=== PATIENT | female | born 1945 | race Caucasian/White ===

== ENCOUNTER 2016-06-26 12:17 | Emergency (ER) | payer MEDICARE, OTHER ==
--- NOTE | 2016-06-26 12:44 | ERPHSYRPT ---
- History of Present Illness Time Seen by Provider: 06/26/16 12:30 Source: patient Exam Limitations: clinical condition Patient Subjective Stated Complaint: pt tripped over someones foot at [employer] and fell, no loc, pt co pain to left arm and shoulder Triage Nursing Assessment: no deformity to shoulder,no swelling or redness noted , nailbeds pink,hands warm, Physician History: PATIENT WITH HISTORY OF ARTHRITIS, SLIPPED INTO DINER, FELL OVER A PERSONS FEET AND INJURYED HER RIGHT SHOULDER, ELBOW AND WRIST. HAS MODERATE PAIN DISCOMFORT UPON RANGE OF MOTION. DENIES ASSOCIATED HEAD, NECK OR BACK INJURY Occurred: just prior to arrival Reason for Fall: tripped (OVER PERSONS FEET) Injuries/Pain Location: upper extremity Loss of Consciousness: no loss of consciousness Quality: stabbing Severity of Pain-Max: moderate Associated Symptoms (Fall): denies symptoms Allergies/Adverse Reactions: azelastine HCl [From Astelin] Allergy (Mild, Verified 06/26/16 12:28) clarithromycin [From Biaxin] Allergy (Mild, Verified 06/26/16 12:28) epinephrine Allergy (Mild, Verified 06/26/16 12:28) Penicillins Allergy (Mild, Verified 06/26/16 12:28) valdecoxib [From Bextra] Allergy (Mild, Verified 06/26/16 12:28) Home Medications: Diclofenac Sodium/Misoprostol [Arthrotec 50 EC Tablet] 1 tab PO BID 10/04/11 [ History] Estrogens,Conjugated [Premarin] 1 tab PO DAILY 10/04/11 [History] Cetirizine HCl [Zyrtec] 1 tab PO DAILY 03/25/12 [History] Tramadol HCl 50 mg [Ultram 50 mg] 50 mg PO BID 02/20/14 [History] Levothyroxine Sodium [Synthroid] 50 mcg DAILY 06/26/16 [History] Hx Tetanus, Diphtheria Vaccination/Date Given: Yes Hx Influenza Vaccination/Date Given: No Hx Pneumococcal Vaccination/Date Given: Yes Immunizations Up to Date: Yes - Review of Systems Constitutional: No Fever, No Chills Eyes: No Symptoms Ears, Nose, & Throat: No Symptoms Respiratory: No Symptoms, No Cough, No Dyspnea Cardiac: No Chest Pain, No Edema, No Syncope Abdominal/Gastrointestinal: No Symptoms, No Abdominal Pain, No Nausea, No Vomiting, No Diarrhea Genitourinary Symptoms: No Dysuria Musculoskeletal: Injury, Joint Pain, Joint Swelling, No Back Pain, No Neck Pain Skin: No Rash Neurological: No Dizziness, No Focal Weakness, No Sensory Changes Psychological: No Symptoms Endocrine: No Symptoms All Other Systems: Reviewed and Negative - Past Medical History Pertinent Past Medical History: Yes Neurological History: No Pertinent History ENT History: No Pertinent History Respiratory History: No Pertinent History Endocrine Medical History: Hypoglycemia Musculoskeletal History: Arthritis GI Medical History: GERD, Polyps History: No Pertinent History Psycho-Social History: No Pertinent History Female Reproductive Disorders: No Pertinent History - Past Surgical History Past Surgical History: Yes Neuro Surgical History: No Pertinent History Cardiac: No Pertinent History Gastrointestinal: Cholecystectomy Genitourinary: No Pertinent History Musculoskeletal: No Pertinent History Female Surgical History: Hysterectomy Other Surgical History: ERCP - Social History Smoking Status: Never smoker Exposure to second hand smoke: No Drug Use: none Patient Lives Alone: No - Female History Hx Last Menstrual Period: post - Nursing Vital Signs Nursing Vital Signs: Initial Vital Signs Temperature 98.7 F Temperature Source Oral Pulse Rate 66 Respiratory Rate 16 Blood Pressure [Right Arm] 107/57 Pain Intensity 8 - Anny Coma Score Best Eye Response (Anny): (4) open spontaneously Best Verbal Response ([place]): (5) oriented Best Motor Response (Anny): (6) obeys commands [place] Total: 15 - Physical Exam General Appearance: mild distress Head Injury: no evidence of injury Eye Exam: PERRL/EOMI ENT Exam: airway nml Neck Exam: supple, normal inspection, No tenderness Respiratory/Chest Exam: normal breath sounds, No chest tenderness, No respiratory distress Cardiovascular Exam: normal heart sounds Gastrointestinal Exam: soft, normal bowel sounds Back Exam: normal inspection, normal range of motion Extremity Exam: pelvis stable, weight bearing, tenderness (RIGHT SHOUDER TENDERNESS, NO CREPITUS, OR ECCHYMOSIS, NO DEFORMITY), other (RIGTH ELBOW FULL RANGE OF MOTION, MODERATE SWELLIGN, U= IEILLLLLLLLLLLLLLLLLLLLLLLLLLLLLLLLLLLLLLLLLLLLLLLLLLLLLLLLLLLLLLLLLLLLLLLLLLLLL LLLLLLLLLLLLLLLLLLLLLLLLLLLLIIIIIIIIIIIIIIIIIIIIIIIIIIIIIIIIIIIIIIIIIIIIIIIIIIII IIIIIIIIIIIIIIIIIIIIIIIIIIIIIIIIIIIIIII IIIIIIIIIIIIIIIIIIIIIIIIIIIIIIIIIIIIIIIIIIIIIIIIIIIIIIIIIIIIIIIIIIIIIIIIIIIIIIII IIIIIIIIIIIIIIIIIIIIIIIIIIIIIIIIIIIIIIIIIIIIIIIIIIIIIIIIIIIIIIIIIIIIIIIIIIIIIIII IIIIIIIIIIIIIIIIIIIIIIIIIIIIIIIIIIIIIIII IIIIIIIIIIIIIIIIIIIIIIIIIIIIIIIIIIIIIIIIIIIIIIIIIIIIIIIIIIIIIIIIIIIIIIIIIIIIIIII IIIIIIIIIIIIIIIIIIIDFDFDFDFDFDFDFDFDFDFDFDFDFDFDFDFDFDFDFDFDFDFDFDFDFDFDFDFDFDFD FDFDFDFDFDFDFDFDFDFDFDFDFDFDFDFDFDFDFDFD FDFDFDFDFDFDFDFDFDFDFDFDFDFDFDFDFDFDFDFDFDFDFDFDFDFDFDFDFDFDFDFDFDFDFDFDFDFDFDFD FDFDFDFDFDFDFDFDFDFDFDFDFDFDFDFDFDFDFDFDFDFDFDFDFDFDFDFDFDFDFDFDFDFDFDFDFDFDFDFD FDFDFDFDFDFDFDFDFDFDFDFDFDFDFDFDFDFDFDFD FDFDFDFDFDFDFDFDFDFDFDFDFDFDFDFDFDFDFDFDFDFDFDFDFDFDFDFDFDFDFDFDFDFDFDFDFDFDFDFD FDFDFDFDFDFDFDFDFDFDFDFDFDFDFDFDFDFDFDFDFDFDFDFDFDFDFDFDFDFDFDFDFDFDFDFDFDFDFDFD FDFDFDFDFDFDFDFDFDFDFDFDFDFDFDFDFDFDFDFD FDFDFDFDFDFDFDFDFDFDFDFDFDFDFDFDFDFDFDFDFDFDFDFDFDFDFDFDFDFDFDFDFDFDFDFDFDFDFDFD FDFDFDFDFDFDFDFDFDFDFDFDFDFDFDFDFDFDFDFDFDFDFDFDFDFDFDFDFDFDFDFDFDFDFDFDFDFDFDFD FDFDFDFDFDFDFDFDFDFDFDFDFDFDFDFDFDFDFDFD FDFDFDFDFDFDFDFDFDFDFDFDFDFDFDFDFDFDFDFDFDFDFDFDFDFDFDFDFDFDFDFDFDFDFDFDFDFDFDFD FDFDFDFDFDFDFDFDFDFDFDFDFDFDFDFDFDFDFDFDFDFDFDFDFDFDFDFDFDFDFDFDFDFDFDFDFDFDFDFD FDFDFDFDFDFDFDFDFDFDFDFDFDFDFDFDFDFDFDFD FDFDFDFDFDFDFDFDFDFDFDFDFDFDFDFDFDFDFDFDFDFDFDFDFDFDFDFDFDFDFDFDFDFDFDFDFDFDFDFD FDFDFDFDFDFDFDFDFDFDFDFDFDFDFDFDFDFDFDFDFDFDFDFDFDFDFDFDFDFDFDFDFDFDFDFDFDFDFDFD FDFDFDFDFDFDFDFDFDFDFDFDFDFDFDFDFDFDFDFD FDFDFDFDFDFDFDFDFDFDFDFDFDFDFDFDFDFDFDFDFDFDFDFDFDFDFDFDFDFDFDFDFDFDFDFDFDFDFDFD FDFDFDFDFDFDFDFDFDFDFDFDFDFDFDFDFDFDFDFDFDFDFDFDFDFDFDFDFDFDFDFDFDFDFDFDFDFDFDFD FDFDFDFDFDFDFDFDFDFDFDFDFDFDFDFDFDFDFDFD FDFDFDFDFDFDFDFDFDFDFDFDFDFDFDFDFDFDFDFDFDFDFDFDFDFDFDFDFDFDFDFDFDFDFDFDFDFDFDFD FDFDFDFDFDFDFDFDFDFDFDFDFDFDFDFDFDFDFDFDFDFDFDFDFDFDFDFDFDFDFDFDFDFDFDFDFDFDFDFD FDFDFDFDFDFDFDFDFDFDFDFDFDFDFDFDFDFDFDFD FDFDFDFDFDFDFDFDFDFDFDFDFDFDFDFDFDFDFDFDFDFDFDFDFDFDFDFDFDFDFDFDFDFDFDFDFDFDFDFD FDFDFDFDFDFDFDFDFDFDFDFDFDFDF ) Peripheral Pulses: carotid (R): 2+, carotid (L): 2+, femoral (R): 2+, femoral (L ): 2+, dorsalis-pedis (R): 2+, dorsalis-pedis (L): 2+ Neurologic Exam: alert, 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 Skin Exam: normal color SpO2 Interpretation: normal SpO2: 96 Oxygen Delivery: Room Air - Radiology Exams Right Shoulder X-ray Interpretation: Discussed w/ radiologist, No Fracture, No Subluxation (NO DISLOCATION) Right Elbow X-ray Interpretation: Discussed w/ radiologist, No Fracture, No Subluxation (NO DISLOCATION) Right Wrist X-ray Interpretation: Discussed w/ radiologist, Negative, No Fracture, No Subluxation Ordered Tests: Active Orders 24 hr Category Date Time Status Sling Application STAT Care 06/26/16 13:49 Ordered ELBOW (MINIMUM 3 VIEWS) Stat Exams 06/26/16 12:36 Completed SHOULDER Stat Exams 06/26/16 12:36 Completed WRIST (MIN 3 VIEWS) Stat Exams 06/26/16 12:37 Completed - Progress Progress: pain not gone completely Progress Note: 06/26/16 12:54 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 NORCO 5/325 EVERY 4 HOURS NEEDED FOR PAIN DISCOMFORT. APPLY ICE OVER SHOULDER AND ELBOW SWELLING EVERY 4 HOURS, 30 MINUTES FOR 48 HOURS. CONSULT YOUR FAMILY PHYSICIAN FOR EVALUATION IN 1 WEEK. Prescriptions: Hydrocodone/APAP 10/325 mg [[place] 10/325 MG Tablet] 1 tab PO Q4H PRN PRN # 15 tablet PRN Reason: Pain
--- NOTE | 2016-06-26 13:24 | XRAY ---
Indication: Pain following fall. Comparison: None 3 views of the right shoulder demonstrates minimal AC degenerative arthropathy. No other bony, articular, or soft tissue abnormalities.
--- NOTE | 2016-06-26 13:26 | XRAY ---
Indication: Pain following fall. Comparison: None 3 views of the right elbow obtained. No bony, articular, or soft tissue abnormalities.
--- NOTE | 2016-06-26 13:29 | XRAY ---
Indication: Pain following fall. Comparison: None 3 views of the right wrist demonstrates mild first metacarpal multangular degenerative changes, ulnar styloid subcortical cysts, and small healed fibrous cortical defect of the distal radius. No other bony, articular, or soft tissue abnormalities.
[2016-06-26 13:57] VITALS: O2SAT 96
[2016-06-26 14:01] VITALS: BP 113/76; PULSE 67
== END 2016-06-26 14:05 | disposition home or self-care (01) ==
LOC: ED 12:17
DX: S40.011A Contusion of right shoulder, initial encounter (principal); S60.211A Contusion of right wrist, initial encounter; S50.01XA Contusion of right elbow, initial encounter; S43.401A Unspecified sprain of right shoulder joint, initial encounter; S63.501A Unspecified sprain of right wrist, initial encounter; S53.401A Unspecified sprain of right elbow, initial encounter; W01.0XXA Fall on same level from slipping, tripping and stumbling without subsequent striking against object, initial encounter
CPT/HCPCS: 73030; 73080; 73110; 99283

== ENCOUNTER 2017-01-02 21:30 | Emergency (ER) | payer MEDICARE ==
[2017-01-02] MEDS ORDERED: Sodium Chloride 0.9% 1000 ML 1,000 ML IV STA (21:54)
[2017-01-02] MEDS ORDERED: Sodium Chloride 0.9% 1000 ML 1,000 ML ONE (21:58)
[2017-01-02 22:15] LABS: BASOPHIL % 0.8 % (0.0-0.4); Eosinophil % 5.6 % (0.00-5.0); Granulocytes % 56.8 % (36.0-66.0); Lymphocytes % 29.6 % (24.0-44.0); Mean Cell Volume 92.5 fl (78-100); Mean Platelet Volume 9.8 fl (6-9.5); Monocytes % 7.2 % (0.0-12.0); Platelet Count 241 K/mm3 (150-450); Red Blood Count 4.29 M/mm3 (4.1-5.4); Red Cell Distribution Width 13.6 % (11.5-14.0); White Blood Count 8.8 K/mm3 (4.0-10.5)
--- NOTE | 2017-01-02 22:20 | ERPHSYRPT ---
- History of Present Illness Time Seen by Provider: 01/02/17 22:17 Historian: patient, family Exam Limitations: no limitations Patient Subjective Stated Complaint: erctal bleeding x 2-3 weeks Triage Nursing Assessment: alert and oriented with c/o rectal bleeding on and off for 2-3 weeks. nausea and diarrhea. abdomen soft. slight tenderness on palpation to left upper abdomen. +BS x4 quads. deneis urinary symptoms. Physician History: rectal bleeding x 2-3 weeks c/o rectal bleeding on and off for 2-3 weeks. nausea and diarrhea. Timing/Duration: week(s) Quality: cramping Abdominal Pain Onset Location: LUQ, suprapubic Pain Radiation: no radiation Severity of Pain-Max: moderate Severity of Pain-Current: moderate Modifying Factors: Improves With: nothing Associated Symptoms: loss of appetite, weakness, other (rectal bleeding) Previous symptoms: different symptoms Allergies/Adverse Reactions: azelastine HCl [From Astelin] Allergy (Mild, Verified 01/02/17 22:50) clarithromycin [From Biaxin] Allergy (Mild, Verified 01/02/17 22:50) epinephrine Allergy (Mild, Verified 01/02/17 22:50) Penicillins Allergy (Mild, Verified 01/02/17 22:50) valdecoxib [From Bextra] Allergy (Mild, Verified 01/02/17 22:50) Home Medications: Estrogens,Conjugated [Premarin] 1 tab PO DAILY 10/04/11 [History] Tramadol HCl 50 mg [Ultram 50 mg] 50 mg PO BID 02/20/14 [History] Levothyroxine Sodium [Synthroid] 50 mcg DAILY 06/26/16 [History] Diclofenac Sodium [Voltaren] 75 mg PO BID 07/24/16 [History] Levothyroxine Sodium 50 Mcg [Synthroid 50 Mcg] 50 mcg PO DAILY 07/24/16 [ History] Misoprostol [Cytotec] 200 mcg PO BID 07/24/16 [History] Hx Tetanus, Diphtheria Vaccination/Date Given: Yes Hx Influenza Vaccination/Date Given: No Hx Pneumococcal Vaccination/Date Given: Yes - Review of Systems Constitutional: No Fever, No Chills Eyes: No Symptoms Ears, Nose, & Throat: No Symptoms Respiratory: No Cough, No Dyspnea Cardiac: No Chest Pain, No Edema, No Syncope Abdominal/Gastrointestinal: Abdominal Pain, Nausea, Diarrhea, Hematochezia, Appetite Changes, No Vomiting Genitourinary Symptoms: No Dysuria Musculoskeletal: No Back Pain, No Neck Pain Skin: No Rash Neurological: No Dizziness, No Focal Weakness, No Sensory Changes Psychological: No Symptoms Endocrine: No Symptoms All Other Systems: Reviewed and Negative - Past Medical History Pertinent Past Medical History: Yes Neurological History: No Pertinent History ENT History: No Pertinent History Respiratory History: No Pertinent History Endocrine Medical History: Hypoglycemia Musculoskeletal History: Arthritis GI Medical History: GERD, Polyps History: No Pertinent History Psycho-Social History: No Pertinent History Female Reproductive Disorders: No Pertinent History - Past Surgical History Past Surgical History: Yes Neuro Surgical History: No Pertinent History Cardiac: No Pertinent History Gastrointestinal: Cholecystectomy Genitourinary: No Pertinent History Musculoskeletal: No Pertinent History Female Surgical History: Hysterectomy Other Surgical History: ERCP - Social History Smoking Status: Never smoker Exposure to second hand smoke: No Drug Use: none Patient Lives Alone: No - Nursing Vital Signs Nursing Vital Signs: Initial Vital Signs Temperature 97.1 F 01/02/17 21:43 Pulse Rate 60 01/02/17 21:43 Respiratory Rate 16 01/02/17 21:43 Blood Pressure 128/75 01/02/17 21:43 O2 Sat by Pulse Oximetry 97 01/02/17 21:43 Pain Scale Pain Intensity 5 - Physical Exam General Appearance: no apparent distress, alert Eye Exam: PERRL/EOMI, eyes nml inspection Ears, Nose, Throat Exam: normal ENT inspection, pharynx normal, moist mucous membranes Neck Exam: normal inspection, non-tender, supple, full range of motion Respiratory Exam: normal breath sounds, lungs clear, No respiratory distress Cardiovascular Exam: regular rate/rhythm, normal heart sounds Gastrointestinal/Abdomen Exam: soft, tenderness (LUQ, Hypogastric area), No mass Back Exam: normal inspection, normal range of motion, No CVA tenderness, No vertebral tenderness Extremity Exam: normal inspection, normal range of motion, pelvis stable Neurologic Exam: alert, 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, cooperative, normal mood/affect, nml cerebellar function, sensation nml, No motor deficits Skin Exam: normal color, warm, dry SpO2: 97 Oxygen Delivery: Room Air - Course Nursing assessment & vital signs reviewed: Yes - CT Exams Abdomen/Pelvis CT Interpretation: Tele-radiologist Report (mild colitis) Ordered Tests: Active Orders 24 hr Category Date Time Status ABDOMEN AND PELVIS W/0 CONTRAS [CT] Stat Exams 01/02/17 21:54 Taken AMYLASE Stat Lab 01/02/17 22:11 Completed CBC W DIFF Stat Lab 01/02/17 22:11 Completed CMP Stat Lab 01/02/17 22:11 Completed LIPASE Stat Lab 01/02/17 22:11 Completed Lactic Acid Stat Lab 01/02/17 Ordered Occult Blood,Stool Other Stat Lab 01/02/17 22:20 Completed UA W/RFX UR CULTURE Stat Lab 01/02/17 21:54 Ordered Medication Summary Generic Name Dose Route Start Last Admin Trade Name Freq PRN Reason Stop Dose Admin Sodium Chloride 1,000 mls @ 999 mls/hr 01/02/17 21:54 01/02/17 22:08 Sodium Chloride 0.9% 1000 Ml IV 01/02/17 22:54 999 mls/hr .Q1H1M STA Administration Discontinued Medications Generic Name Dose Route Start Last Admin Trade Name Freq PRN Reason Stop Dose Admin Sodium Chloride Confirm 01/02/17 21:58 Sodium Chloride 0.9% 1000 Ml Administered 01/02/17 21:59 Dose 1,000 mls @ ud .ROUTE .STK-MED ONE Lab/Rad Data: Laboratory Result Diagrams 01/02/17 22:11 01/02/17 22:11 Laboratory Results 01/02/17 01/02/17 01/02/17 Range/Units 22:20 22:11 22:11 WBC 8.8 (4.0-10.5) K/mm3 RBC 4.29 (4.1-5.4) M/mm3 Hgb 13.3 (12.0-16.0) gm/dl Hct 39.7 (35-47) % MCV 92.5 (78-100) fl MCH 31.0 (26-32) pg MCHC 33.5 (32-36) g/dl RDW 13.6 (11.5-14.0) % Plt Count 241 (150-450) K/mm3 MPV 9.8 H (6-9.5) fl Gran % 56.8 (36.0-66.0) % Lymphocytes % 29.6 (24.0-44.0) % Monocytes % 7.2 (0.0-12.0) % Eosinophils % 5.6 H (0.00-5.0) % Basophils % 0.8 (0.0-0.4) % Basophils # 0.07 (0-0.4) Sodium 139 (136-145) mEq/L Potassium 3.9 (3.5-5.1) mEq/L Chloride 104 (98-107) mEq/L Carbon Dioxide 27.1 (21-32) mEq/L Anion Gap 11.8 (5-15) MEQ/L BUN 20 (9-20) mg/dL Creatinine 0.87 (0.55-1.30) mg/dl Estimated GFR > 60 ML/MIN Glucose 99 (70-110) MG/DL Calcium 9.2 (8.5-10.1) mg/dL Total Bilirubin 0.20 (0.2-1.0) mg/dL AST 17 (15-37) U/L ALT 27 (12-78) U/L Alkaline Phosphatase 86 (46-116) U/L Serum Total Protein 6.8 (6.4-8.2) gm/dL Albumin 3.6 (3.4-5.0) g/dL Amylase 72 (25-115) U/L Lipase 210 (73-393) U/L Stool Occult Blood NEGATIVE (Negative) - Progress Progress: improved Counseled pt/family regarding: lab results, diagnosis, need for follow-up, rad results - Departure Time of Disposition: 22:53 Departure Disposition: Home Clinical Impression: Colitis Condition: Stable Critical Care Time: Yes Critical Care Time(excluding separately billable procedures): 30-74 minutes Referrals: DWIGHT MARTÍNEZ [Primary Care Provider] - Instructions: Gastrointestinal Bleeding Additional Instructions: Please follow the instructions given to you. Please take your medication as prescribed if given. If symptoms recur or get worse, come back to the emergency room if you cannot reach your primary care physician, or call your primary care physician for an appointment. Again if your symptoms get worse, come back to the emergency room. Thanks for visiting emergency room, and let us take care of you. Follow-up with your primary care physician for further workup for your colitis, including colonoscopy. Prescriptions: Metronidazole 500 mg [Flagyl 500 MG] 500 mg PO TID #21 tablet
[2017-01-02 22:35] LABS: ALBUMIN 3.6 g/dL (3.4-5.0); ALKALINE PHOSPHATASE 86 U/L (46-116); ANION GAP 11.8 MEQ/L (5-15); BLOOD UREA NITROGEN 20 mg/dL (9-20); CHLORIDE 104 mEq/L (98-107); Carbon Dioxide 27.1 mEq/L (21-32); Glucose 99 MG/DL (70-110); LIPASE 210 U/L (73-393); Potassium 3.9 mEq/L (3.5-5.1); SGOT/AST 17 U/L (15-37); SGPT/ALT 27 U/L (12-78); SODIUM 139 mEq/L (136-145); Total Protein 6.8 gm/dL (6.4-8.2)
[2017-01-02] MEDS ORDERED: ROCEPHIN 1 Gm-D5w 50 ml Bag** 1 G/50 ML IVPB IV STA (22:52)
[2017-01-02] MEDS ORDERED: ROCEPHIN 1 Gm-D5w 50 ml Bag** 1 G/50 ML IVPB IV ONE (22:55)
[2017-01-02 23:11] VITALS: BP 131/68; PULSE 78; O2SAT 98
[2017-01-02 23:13] LABS: Collection Type VOID; Glucose NEGATIVE (NEGATIVE); Leukocyte Esterase NEGATIVE (NEGATIVE)
[2017-01-02 23:14] LABS: ADD URINE CULTURE? NO (NO); Bilirubin NEGATIVE (NEGATIVE); Blood NEGATIVE Ery/ul (0-5); COMPLETE URINE MICROSCOPIC? NO
--- NOTE | 2017-01-03 08:11 | XRAY ---
Indication: Left abdominal pain and rectal bleeding. Multiple contiguous axial images obtained through the abdomen and pelvis without contrast as ordered. Comparison: February 20, 2014. Lung bases again demonstrates minimal bibasilar atelectasis/scarring and left base calcified granuloma. Heart is not enlarged. Noncontrasted stomach and bowel loops appear nonobstructed. Again minimal sigmoid diverticulosis without diverticulitis. Descending colon demonstrates very minimal pericolonic stranding, possibly colitis. Previous reported appendectomy, hysterectomy, and cholecystectomy. Again mild pneumobilia and calcified hepatic/splenic granulomas. No free fluid/air. Remaining liver, pancreas, spleen, adrenal glands, kidneys, ureters, bladder, and aorta appear unremarkable for noncontrast exam. Osseous structures intact again with lower lumbar degenerative changes and mild scoliosis. Impression: 1. Minimal descending pericolonic stranding. Rule out mild/early colitis. 2. Stable sigmoid diverticulosis, cholecystectomy with pneumobilia, and evidence for old granulomatous disease. Comment: Preliminary interpretation was made by [facility]. No discrepancy. CTDI 21.81
== END 2017-01-02 23:37 | disposition home or self-care (01) ==
LOC: ED 21:30
DX: K52.9 Noninfective gastroenteritis and colitis, unspecified (principal); R10.12 Left upper quadrant pain; R11.10 Vomiting, unspecified; R19.7 Diarrhea, unspecified; Z79.899 Other long term (current) drug therapy; K92.1 Melena
CPT/HCPCS: 36000; 36415; 74176; 80053; 81002; 82150; 82272; 83605; 83690; 85025; 96360; 96365; 99285; J0696

== ENCOUNTER 2017-04-25 14:33 | Emergency (ER) | payer MEDICARE ==
[2017-04-25] MEDS ORDERED: BENADRYL 50 MG/ML IV ONE (14:52)
[2017-04-25] MEDS ORDERED: solu-MEDROL 125 MG IV ONE (14:52)
[2017-04-25] MEDS ORDERED: Sodium Chloride 0.9% 1000 ML 1,000 ML IV STA (14:52)
[2017-04-25] MEDS ORDERED: BENADRYL 50 MG/ML ONE (14:55)
[2017-04-25] MEDS ORDERED: solu-MEDROL 125 MG ONE (14:55)
[2017-04-25] MEDS ORDERED: Sodium Chloride 0.9% 1000 ML 1,000 ML ONE (14:55)
--- NOTE | 2017-04-25 14:59 | ERPHSYRPT ---
- History of Present Illness Time Seen by Provider: 04/25/17 14:54 Source: patient Exam Limitations: no limitations Physician History: 71-year-old white female who states she is allergic to epinephrine. Arrives with complaint of a erythematous generalized rash shortness of breath symptoms since taking moxifloxacin approximately one half hour prior to arrival. Timing/Duration: today (one half hour prior to arrival) Severity: moderate Modifying Factors: Improves With: other (patient just took moxifloxacin) Associated Symptoms: shortness of breath, rash (generalized rash), No nausea, No vomiting, No abdominal pain, No heartburn, No diaphoresis, No cough, No chills, No chest pain, No fever, No headaches, No loss of appetite, No malaise, No syncope, No seizure, No weakness Allergies/Adverse Reactions: azelastine HCl [From Astelin] Allergy (Mild, Verified 04/25/17 14:48) clarithromycin [From Biaxin] Allergy (Mild, Verified 04/25/17 14:48) epinephrine Allergy (Mild, Verified 04/25/17 14:48) Penicillins Allergy (Mild, Verified 04/25/17 14:48) valdecoxib [From Bextra] Allergy (Mild, Verified 04/25/17 14:48) moxifloxacin Allergy (Verified 04/25/17 14:48) Home Medications: Estrogens,Conjugated [Premarin] 1 tab PO DAILY 10/04/11 [History] Levothyroxine Sodium [Synthroid] 50 mcg DAILY 06/26/16 [History] Diclofenac Sodium [Voltaren] 75 mg PO BID 07/24/16 [History] Hydrocodone Bit/Acetaminophen [Hydrocodon-Acetaminophen 5-325] 1 each PO TID 12/31 [History] Hx Tetanus, Diphtheria Vaccination/Date Given: Yes Hx Influenza Vaccination/Date Given: No Hx Pneumococcal Vaccination/Date Given: Yes - Review of Systems Constitutional: No Fever, No Chills Eyes: No Symptoms Ears, Nose, & Throat: No Symptoms Respiratory: Dyspnea, No Cough, No Cyanosis, No Dyspnea on Exertion ([place]), No Stridor, No Wheezing Cardiac: No Chest Pain, No Edema, No Syncope Abdominal/Gastrointestinal: No Abdominal Pain, No Nausea, No Vomiting, No Diarrhea Genitourinary Symptoms: No Dysuria Musculoskeletal: No Back Pain, No Neck Pain Skin: Rash (generalized erythematous rash) Neurological: No Dizziness, No Focal Weakness, No Sensory Changes Psychological: No Symptoms Endocrine: No Symptoms All Other Systems: Reviewed and Negative - Past Medical History Pertinent Past Medical History: Yes Neurological History: No Pertinent History ENT History: No Pertinent History Respiratory History: No Pertinent History Endocrine Medical History: Hypoglycemia Musculoskeletal History: Arthritis GI Medical History: GERD, Polyps History: No Pertinent History Psycho-Social History: No Pertinent History Female Reproductive Disorders: No Pertinent History - Past Surgical History Past Surgical History: Yes Neuro Surgical History: No Pertinent History Cardiac: No Pertinent History Gastrointestinal: Cholecystectomy Genitourinary: No Pertinent History Musculoskeletal: No Pertinent History Female Surgical History: Hysterectomy Other Surgical History: ERCP - Social History Smoking Status: Never smoker Exposure to second hand smoke: No Drug Use: none Patient Lives Alone: No - Nursing Vital Signs Nursing Vital Signs: Initial Vital Signs Temperature 98.6 F 04/25/17 14:35 Pulse Rate 69 04/25/17 14:35 Respiratory Rate 28 H 04/25/17 14:35 Blood Pressure 140/79 04/25/17 14:35 O2 Sat by Pulse Oximetry 98 04/25/17 14:35 Pain Scale Pain Intensity 0 - Physical Exam General Appearance: other (well-developed elderly-appearing white female anxious generalized erythematous rash) Eye Exam: PERRL/EOMI, eyes nml inspection Ears, Nose, Throat Exam: normal ENT inspection, TMs normal, pharynx normal, moist mucous membranes Neck Exam: normal inspection, non-tender, supple, full range of motion Respiratory Exam: normal breath sounds, lungs clear, No respiratory distress Cardiovascular Exam: regular rate/rhythm, normal heart sounds, normal peripheral pulses Gastrointestinal/Abdomen Exam: soft, normal bowel sounds, No tenderness, No mass Back Exam: normal inspection, normal range of motion, No CVA tenderness, No vertebral tenderness Extremity Exam: normal inspection, normal range of motion, pelvis stable Neurologic Exam: alert, 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, cooperative, normal mood/affect, nml cerebellar function, nml station & gait, sensation nml, No motor deficits Skin Exam: normal color, warm, dry, No rash Lymphatic Exam: No adenopathy SpO2 Interpretation: normal (98%) - Course Nursing assessment & vital signs reviewed: Yes EKG Interpreted by Me: RATE (65 bpm), Sinus Rhythm, Left [place] Deviation, Other ( EKG sinus rhythm, 65 bpm, left axis deviation, nonspecific ST and T abnormalites , no acute ST or T wave changes) Ordered Tests: Active Orders 24 hr Category Date Time Status EKG-ER Only STAT Care 04/25/17 14:40 Active IV Insertion STAT Care 04/25/17 14:40 Active Medication Summary Discontinued Medications Generic Name Dose Route Start Last Admin Trade Name Jessica PRN Reason Stop Dose Admin Diphenhydramine HCl 25 mg 04/25/17 14:52 04/25/17 15:00 Benadryl 50 Mg/Ml IV 04/25/17 14:53 25 mg STAT ONE Administration Diphenhydramine HCl Confirm 04/25/17 14:55 Benadryl 50 Mg/Ml Administered 04/25/17 14:56 Dose 50 mg .ROUTE .STK-MED ONE Sodium Chloride 1,000 mls @ 999 mls/hr 04/25/17 14:52 04/25/17 14:59 Sodium Chloride 0.9% 1000 Ml IV 04/25/17 15:52 999 mls/hr .Q1H1M STA Administration Sodium Chloride Confirm 04/25/17 14:55 Sodium Chloride 0.9% 1000 Ml Administered 04/25/17 14:56 Dose 1,000 mls @ ud .ROUTE .STK-MED ONE Methylprednisolone Sodium Succinate 125 mg 04/25/17 14:52 04/25/17 15:00 Solu-Medrol 125 Mg IV 04/25/17 14:53 125 mg STAT ONE Administration Methylprednisolone Sodium Succinate Confirm 04/25/17 14:55 Solu-Medrol 125 Mg Administered 04/25/17 14:56 Dose 125 mg .ROUTE .STK-MED ONE - Progress Progress: unchanged (social), improved Progress Note: 04/25/17 14:56 71-year-old white female that states that she has frequent allergic reactions and multiple allergies arrives with complaint of erythematous rash over her whole body shortness of breath symptoms since approximately one half hour after taking moxifloxacin prescribed by her physician. Unfortunately the patient is unable to take epinephrine. Patient does appear to be quite anxious EKG Is remarkable for sinus rhythm 65 bpm left axis deviation nonspecific ST or T wave abnormalities no acute ST or T wave changes. Patient appears to be stable Will go ahead and give patient IV normal saline Solu-Medrol 125 mg IV and Benadryl 25 mg IV. 04/25/17 16:50 Patient feeling markedly better. Patient's skin is normal breathing easy no acute distress vitals are stable. Patient was not given epinephrine she lists this as an allergy. She did have a good response to Solu-Medrol IV normal saline and IV Benadryl. Will discharge patient. Patient will be advised not to take moxifloxacin. Will place patient on Medrol Dosepak have her continue Benadryl. - Departure Time of Disposition: 16:51 Departure Disposition: Home Clinical Impression: Allergic reaction Qualifiers: Encounter type: initial encounter Qualified Code(s): T78.40XA - Allergy, unspecified, initial encounter Condition: Fair Critical Care Time: No Referrals: DWIGHT MARTÍNEZ [Primary Care Provider] - Instructions: Adverse Drug Reactions, Adult (DC) Additional Instructions: Return home. Plenty of fluids. Benadryl 50 mg orally every 6 hours as needed for one to 2 days. Medrol Dosepak as directed. Follow-up with your family doctor. Avoid moxifloxacin or fluoroquinolones. Return for acute distress or for severe symptoms. This will write the prescription
[2017-04-25 15:56] VITALS: O2SAT 98
[2017-04-25 17:07] VITALS: BP 118/53; PULSE 66
== END 2017-04-25 17:17 | disposition home or self-care (01) ==
LOC: ED 14:33
DX: L27.0 Generalized skin eruption due to drugs and medicaments taken internally (principal); T36.8X5A Adverse effect of other systemic antibiotics, initial encounter
CPT/HCPCS: 36000; 93005; 96360; 96374; 96375; 99284; J1200; J2930

== ENCOUNTER 2017-05-08 19:36 | Observation (INO) | payer MEDICARE ==
--- NOTE | 2017-05-08 20:08 | ERPHSYRPT ---
- History of Present Illness Time Seen by Provider: 05/08/17 20:03 Source: patient, family Exam Limitations: no limitations Physician History: 71 y/o female with history of TIA currently on ASA comes to the ER with complaints of difficulty speaking, seeing hazy lines and a "funny sensation" on the left side of face that occurred at 4 pm while cooking. Pt did take ASA after having the symptoms. Pt arrives 3 1/2 hours later and states that the symptoms have mostly resolved except for the funny sensation on the left side of face. Pt denies any headache, dizziness, drooping of the mouth, weakness, chest pain, shortness of breath or palpitations. Timing/Duration: today Severity: mild Character of Deficits: altered sensation, unable to speak, vision problems Deficits: no difficulties Baseline/Normal Cognition: alert 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 Current Cognition: alert 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 Baseline Gait: walks w/o assistance Associated Symptoms: confusion, vision changes Allergies/Adverse Reactions: azelastine HCl [From Astelin] Allergy (Mild, Verified 05/08/17 22:37) clarithromycin [From Biaxin] Allergy (Mild, Verified 05/08/17 22:37) epinephrine Allergy (Mild, Verified 05/08/17 22:37) Penicillins Allergy (Mild, Verified 05/08/17 22:37) valdecoxib [From Bextra] Allergy (Mild, Verified 05/08/17 22:37) moxifloxacin Allergy (Verified 05/08/17 22:37) Home Medications: Estrogens,Conjugated [Premarin] 1 tab PO DAILY 10/04/11 [History] Levothyroxine Sodium [Synthroid] 50 mcg DAILY 06/26/16 [History] Diclofenac Sodium [Voltaren] 75 mg PO BID 07/24/16 [History] Hydrocodone Bit/Acetaminophen [Hydrocodon-Acetaminophen 5-325] 1 each PO Q8HPRN PRN 04/25/17 [History] Hx Tetanus, Diphtheria Vaccination/Date Given: Yes Hx Influenza Vaccination/Date Given: No Hx Pneumococcal Vaccination/Date Given: Yes - Review of Systems Constitutional: No Fever, No Chills Eyes: Vision Changes Ears, Nose, & Throat: No Symptoms Respiratory: No Cough, No Dyspnea Cardiac: No Chest Pain, No Edema, No Syncope Abdominal/Gastrointestinal: No Abdominal Pain, No Nausea, No Vomiting, No Diarrhea Genitourinary Symptoms: No Dysuria Musculoskeletal: No Symptoms, No Back Pain, No Neck Pain Skin: No Symptoms, No Rash Neurological: Speech Changes, No Dizziness, No Focal Weakness, No Headache, No Sensory Changes Psychological: No Symptoms Endocrine: No Symptoms All Other Systems: Reviewed and Negative - Past Medical History Pertinent Past Medical History: Yes Neurological History: No Pertinent History ENT History: No Pertinent History Respiratory History: No Pertinent History Endocrine Medical History: Hypoglycemia Musculoskeletal History: Arthritis GI Medical History: GERD, Polyps History: No Pertinent History Psycho-Social History: No Pertinent History Female Reproductive Disorders: No Pertinent History - Past Surgical History Past Surgical History: Yes Neuro Surgical History: No Pertinent History Cardiac: No Pertinent History Gastrointestinal: Cholecystectomy Genitourinary: No Pertinent History Musculoskeletal: No Pertinent History Female Surgical History: Hysterectomy Other Surgical History: ERCP - Social History Smoking Status: Never smoker Exposure to second hand smoke: No Drug Use: none Patient Lives Alone: No - Nursing Vital Signs Nursing Vital Signs: Initial Vital Signs Temperature 98.0 F 05/08/17 20:00 Pulse Rate 61 05/08/17 20:00 Respiratory Rate 18 05/08/17 20:00 Blood Pressure 146/69 05/08/17 20:00 O2 Sat by Pulse Oximetry 99 05/08/17 20:00 Pain Scale Pain Intensity 0 - Anny Coma Scale Best Eye Response ([place]): (4) open spontaneously Best Verbal Response (Anny): (5) oriented Best Motor Response (Anny): (6) obeys commands Anny Total: 15 - Physical Exam General Appearance: no apparent distress, alert Eye Exam: bilateral eye: normal inspection, PERRL, EOMI Ears, Nose, Throat Exam: normal ENT inspection, moist mucous membranes Neck Exam: normal inspection, non-tender, supple Respiratory: normal breath sounds, lungs clear, airway intact, No respiratory distress Cardiovascular: regular rate/rhythm, No edema Gastrointestinal: soft, No tenderness, No distention Back Exam: normal inspection Extremity Exam: normal inspection, normal range of motion, No pedal edema 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, 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, 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 Exam: normal hearing, normal speech, PERRL, tongue midline Coordination/Gait: normal finger to nose, normal gait Motor/Sensory: no motor deficit, no sensory deficit, no pronator drift Skin Exam: normal color, warm, dry, No rash SpO2 Interpretation: normal - Course Nursing assessment & vital signs reviewed: Yes EKG Interpreted by Me: RATE, NORMAL AXIS, NORMAL INTERVALS, NORMAL QRS Ordered Tests: Active Orders 24 hr Category Date Time Status Help Desk Intern STAT Care 05/08/17 20:02 Active EKG-ER Only STAT Care 05/08/17 20:02 Active IV Insertion STAT Care 05/08/17 20:02 Active NPO (ED) STAT Care 05/08/17 20:02 Active CHEST 1 VIEW (PORTABLE) Stat Exams 05/08/17 20:[address] ANGIOGRAPHY NECK [CT] Stat Exams 05/08/17 20:26 Taken CTA HEAD W AND/OR WO CONTRAST [CT] Stat Exams 05/08/17 20:26 Taken HEAD WITHOUT CONTRAST [CT] Stat Exams 05/08/17 20:02 Taken CBC W DIFF Stat Lab 05/08/17 20:10 Completed CMP Stat Lab 05/08/17 20:10 Completed PTT Stat Lab 05/08/17 20:10 Completed TROPONIN Q3H Lab 05/08/17 20:10 Completed TROPONIN Q3H Lab 05/08/17 23:15 Ordered TROPONIN Q3H Lab 05/09/17 02:15 Ordered TROPONIN Q3H Lab 05/09/17 05:15 Ordered TROPONIN Q3H Lab 05/09/17 08:15 Ordered UA W/RFX UR CULTURE Stat Lab 05/08/17 21:45 Completed Urine Triage Profile Stat Lab 05/08/17 21:45 Completed Medication Summary Discontinued Medications Generic Name Dose Route Start Last Admin Trade Name Freq PRN Reason Stop Dose Admin Diphenhydramine HCl 25 mg 05/08/17 21:11 05/08/17 21:16 Benadryl 50 Mg/Ml IV 05/08/17 21:12 25 mg STAT ONE Administration Diphenhydramine HCl Confirm 05/08/17 21:13 Benadryl 50 Mg/Ml Administered 05/08/17 21:14 Dose 50 mg .ROUTE .STK-MED ONE Lab/Rad Data: Laboratory Result Diagrams 05/08/17 20:10 05/08/17 20:10 Laboratory Results 05/08/17 05/08/17 05/08/17 Range/Units 21:45 21:45 20:10 WBC (4.0-10.5) K/mm3 RBC (4.1-5.4) M/mm3 Hgb (12.0-16.0) gm/dl Hct (35-47) % MCV (78-100) fl MCH (26-32) pg MCHC (32-36) g/dl RDW (11.5-14.0) % Plt Count (150-450) K/mm3 MPV (6-9.5) fl Gran % (36.0-66.0) % Lymphocytes % (24.0-44.0) % Monocytes % (0.0-12.0) % Eosinophils % (0.00-5.0) % Basophils % (0.0-0.4) % Basophils # (0-0.4) APTT (25.3-37.0) SECONDS Sodium 145 (136-145) mEq/L Potassium 3.8 (3.5-5.1) mEq/L Chloride 108 H (98-107) mEq/L Carbon Dioxide 24.7 (21-32) mEq/L Anion Gap 15.8 H (5-15) MEQ/L BUN 17 (9-20) mg/dL Creatinine 0.76 (0.55-1.30) mg/dl Estimated GFR > 60 ML/MIN Glucose 94 (70-110) MG/DL Calcium 9.2 (8.5-10.1) mg/dL Total Bilirubin 0.30 (0.2-1.0) mg/dL AST 19 (15-37) U/L ALT 27 (12-78) U/L Alkaline Phosphatase 73 (46-116) U/L Troponin I (0.000-0.056) ng/ml Serum Total Protein 7.0 (6.4-8.2) gm/dL Albumin 3.5 (3.4-5.0) g/dL Ur Collection Type CCMS Urine Color LT.YELLOW (YELLOW) Urine Appearance CLEAR (CLEAR) Urine pH 7.0 (5-6) Ur Specific [place] 1.010 (1.005-1.025) Urine Protein NEGATIVE (Negative) Urine Ketones NEGATIVE (NEGATIVE) Urine Blood NEGATIVE (0-5) Buster/ul Urine Nitrite NEGATIVE (NEGATIVE) Urine Bilirubin NEGATIVE (NEGATIVE) Urine Urobilinogen NORMAL (0-1) mg/dL Ur Leukocyte Esterase NEGATIVE (NEGATIVE) Urine Culture Reflexed NO (NO) Urine Glucose NEGATIVE (NEGATIVE) mg/dL Urine Opiates Level NEG. (NEGATIVE) Ur Methadone NEG. (NEGATIVE) Urine Barbiturates NEG. (NEGATIVE) Ur Phencyclidine (PCP) NEG. (NEGATIVE) Urine Amphetamine NEG. (NEGATIVE) U Benzodiazepine Level NEG. (NEGATIVE) Urine Cocaine NEG. (NEGATIVE) Urine Marijuana (THC) NEG. (NEGATIVE) Specimen Received 05-08-170 05/08/17 05/08/17 05/08/17 Range/Units 20:10 20:10 20:10 WBC 8.3 (4.0-10.5) K/mm3 RBC 4.35 (4.1-5.4) M/mm3 Hgb 13.7 (12.0-16.0) gm/dl Hct 40.2 (35-47) % MCV 92.4 (78-100) fl MCH 31.5 (26-32) pg MCHC 34.1 (32-36) g/dl RDW 14.1 H (11.5-14.0) % Plt Count 250 (150-450) K/mm3 MPV 10.2 H (6-9.5) fl Gran % 53.4 (36.0-66.0) % Lymphocytes % 35.2 (24.0-44.0) % Monocytes % 7.2 (0.0-12.0) % Eosinophils % 3.5 (0.00-5.0) % Basophils % 0.7 (0.0-0.4) % Basophils # 0.06 (0-0.4) APTT 26.3 (25.3-37.0) SECONDS Sodium (136-145) mEq/L Potassium (3.5-5.1) mEq/L Chloride (98-107) mEq/L Carbon Dioxide (21-32) mEq/L Anion Gap (5-15) MEQ/L BUN (9-20) mg/dL Creatinine (0.55-1.30) mg/dl Estimated GFR ML/MIN Glucose (70-110) MG/DL Calcium (8.5-10.1) mg/dL Total Bilirubin (0.2-1.0) mg/dL AST (15-37) U/L ALT (12-78) U/L Alkaline Phosphatase (46-116) U/L Troponin I < 0.017 (0.000-0.056) ng/ml Serum Total Protein (6.4-8.2) gm/dL Albumin (3.4-5.0) g/dL Ur Collection Type Urine Color (YELLOW) Urine Appearance (CLEAR) Urine pH (5-6) Ur Specific [place] (1.005-1.025) Urine Protein (Negative) Urine Ketones (NEGATIVE) Urine Blood (0-5) Buster/ul Urine Nitrite (NEGATIVE) Urine Bilirubin (NEGATIVE) Urine Urobilinogen (0-1) mg/dL Ur Leukocyte Esterase (NEGATIVE) Urine Culture Reflexed (NO) Urine Glucose (NEGATIVE) mg/dL Urine Opiates Level (NEGATIVE) Ur Methadone (NEGATIVE) Urine Barbiturates (NEGATIVE) Ur Phencyclidine (PCP) (NEGATIVE) Urine Amphetamine (NEGATIVE) U Benzodiazepine Level (NEGATIVE) Urine Cocaine (NEGATIVE) Urine Marijuana (THC) (NEGATIVE) Specimen Received - Progress Progress: improved Progress Note: 05/08/17 23:03 Pt has no current neurological complaints. The CT scan head, CTA head and neck are within normal limits. The patient has already taken 2 baby ASA today. The rest of the labs are within normal limits. The patient has been admitted to Dr Martínez for TIA and further workup - Departure Time of Disposition: 23:04 Departure Disposition: In-patient Admission Clinical Impression: TIA (transient ischemic attack) Qualifiers: Transient cerebral ischemia type: unspecified Qualified Code(s): G45.9 - Transient cerebral ischemic attack, unspecified Condition: Fair Critical Care Time: Yes Critical Care Time(excluding separately billable procedures): 75-104 minutes Referrals: DWIGHT MARTÍNEZ [Primary Care Provider] -
[2017-05-08 20:14] LABS: BASOPHIL % 0.7 % (0.0-0.4); Basophil (Absolute #) 0.06 (0-0.4); Eosinophil % 3.5 % (0.00-5.0); Eosinophil (Absolute #) 0.29 (0-0.5); Granulocyte Absolute (ANC) 4.45 (1.4-6.9); Granulocytes % 53.4 % (36.0-66.0); Hematocrit 40.2 % (35-47); Hemoglobin 13.7 gm/dl (12.0-16.0); Lymphocyte (Absolute #) 2.93 (1.0-4.6); Lymphocytes % 35.2 % (24.0-44.0); Mean Cell Volume 92.4 fl (78-100); Mean Corpuscular Hemoglobin 31.5 pg (26-32); Mean Corpuscular Hgb Concent. 34.1 g/dl (32-36); Mean Platelet Volume 10.2 fl (6-9.5); Monocytes % 7.2 % (0.0-12.0); Platelet Count 250 K/mm3 (150-450); Red Blood Count 4.35 M/mm3 (4.1-5.4); Red Cell Distribution Width 14.1 % (11.5-14.0); White Blood Count 8.3 K/mm3 (4.0-10.5)
[2017-05-08 20:44] LABS: ALBUMIN 3.5 g/dL (3.4-5.0); ALKALINE PHOSPHATASE 73 U/L (46-116); ANION GAP 15.8 MEQ/L (5-15); BLOOD UREA NITROGEN 17 mg/dL (9-20); CHLORIDE 108 mEq/L (98-107); Calcium 9.2 mg/dL (8.5-10.1); Carbon Dioxide 24.7 mEq/L (21-32); Creatinine 1 0.76 mg/dl (0.55-1.30); EST GLOMERULAR FILTRATION RATE > 60 ML/MIN; Glucose 94 MG/DL (70-110); Potassium 3.8 mEq/L (3.5-5.1); SGOT/AST 19 U/L (15-37); SGPT/ALT 27 U/L (12-78); SODIUM 145 mEq/L (136-145)
[2017-05-08] MEDS ORDERED: BENADRYL 50 MG/ML IV ONE (21:11)
[2017-05-08] MEDS ORDERED: BENADRYL 50 MG/ML ONE (21:13)
[2017-05-08 22:03] LABS: Appearance CLEAR (CLEAR); Bilirubin NEGATIVE (NEGATIVE); Blood NEGATIVE Ery/ul (0-5); Glucose NEGATIVE (NEGATIVE); Ketones NEGATIVE (NEGATIVE); Leukocyte Esterase NEGATIVE (NEGATIVE); Nitrite NEGATIVE (NEGATIVE); Protein,Urine Dip NEGATIVE (Negative); Urobilinogen NORMAL mg/dL (0-1)
[2017-05-08 22:15] LABS: Amphetamine,Urine NEG. (NEGATIVE); Barbiturate,Urine NEG. (NEGATIVE); Benzodiazepine,Urine NEG. (NEGATIVE); Cocaine,Urine NEG. (NEGATIVE); Methadone,Urine NEG. (NEGATIVE); Opiate,Urine NEG. (NEGATIVE); PCP,Urine NEG. (NEGATIVE); THC,Urine NEG. (NEGATIVE)
[2017-05-08] MEDS ORDERED: TYLENOL EXTRA STRENGTH 500 MG PO STA (23:05)
[2017-05-08] MEDS ORDERED: TYLENOL EXTRA STRENGTH 500 MG ONE (23:08)
[2017-05-09 05:58] LABS: BASOPHIL % 0.6 % (0.0-0.4); Basophil (Absolute #) 0.04 (0-0.4); Eosinophil % 4.2 % (0.00-5.0); Eosinophil (Absolute #) 0.27 (0-0.5); Granulocyte Absolute (ANC) 2.98 (1.4-6.9); Granulocytes % 46.2 % (36.0-66.0); Hematocrit 37.7 % (35-47); Hemoglobin 12.7 gm/dl (12.0-16.0); Lymphocyte (Absolute #) 2.55 (1.0-4.6); Lymphocytes % 39.5 % (24.0-44.0); Mean Cell Volume 92.9 fl (78-100); Mean Corpuscular Hgb Concent. 33.7 g/dl (32-36); Monocyte (Absolute #) 0.61 (0.0-1.3); Monocytes % 9.5 % (0.0-12.0); Platelet Count 238 K/mm3 (150-450); Red Blood Count 4.06 M/mm3 (4.1-5.4); White Blood Count 6.5 K/mm3 (4.0-10.5)
[2017-05-09 06:02] LABS: ANION GAP 13.7 MEQ/L (5-15); BLOOD UREA NITROGEN 13 mg/dL (9-20); CHLORIDE 107 mEq/L (98-107); Calcium 8.7 mg/dL (8.5-10.1); Carbon Dioxide 27.3 mEq/L (21-32); Creatinine 1 0.78 mg/dl (0.55-1.30); EST GLOMERULAR FILTRATION RATE > 60 ML/MIN; Glucose 91 MG/DL (70-110); Potassium 3.5 mEq/L (3.5-5.1); SODIUM 145 mEq/L (136-145)
[2017-05-09 06:04] LABS: Mean Corpuscular Hemoglobin 31.2 pg (26-32)
--- NOTE | 2017-05-09 07:54 | XRAY ---
Indication: Frontal headache. Confusion. Multiple contiguous axial images obtained through the head without contrast. Comparison: March 25, 2012. Age-appropriate global atrophy and minimal periventricular degenerative micro-ischemia. No acute intracranial hemorrhage, abnormal extra-axial fluid collection, or mass effect. Fourth ventricle is midline without hydrocephalus. Bony calvarium intact. Visualized paranasal sinuses and mastoid air cells are clear. Impression: Nonacute senile brain. Comment: Preliminary interpretation was made by [facility]. No discrepancy. CTDI 70.98
--- NOTE | 2017-05-09 07:56 | XRAY ---
Indication: CVA. Comparison: September 01, 2014. Portable chest less inflated today with minimal left base atelectasis/scarring. Again a few incidental calcified granulomas. No focal infiltrate, consolidation, or large effusion. Heart is not enlarged. Vascularity normal. Bony thorax intact again with minimal scoliosis. Impression: Nonacute chest with chronic features.
--- NOTE | 2017-05-09 08:00 | XRAY ---
Indication: Frontal headache. Confusion. Conventional contrast enhanced CTA neck was performed using 100 cc Isovue 370 contrast. Two-dimensional sagittal and coronal reformatted images obtained. Comparison: None. Visualized aortic arch is normal in course and caliber with normal branching right brachiocephalic, left common carotid, and left subclavian arteries. No critical stenosis/obstruction. Examination of the left and right carotid arteries of the neck demonstrates widely patent common carotid, carotid bulb, internal carotid, and external carotid arteries. Vertebral arteries are bilaterally symmetric without critical stenosis, obstruction, or AV malformation. Visualized noncontrasted soft tissues including jugular veins are unremarkable. Underlying cervical spine intact with mild C5-C7 degenerative endplate spurring and disc space narrowing. CT head and CTA [place] reported separately. Impression: Negative CTA neck with contrast exam. Incidental C5-C7 degenerative disc disease. Comment: Preliminary interpretation was made by [facility]. No discrepancy. CTDI 85.14
--- NOTE | 2017-05-09 08:06 | XRAY ---
Indication: Frontal headache. Confusion. Conventional contrast enhanced CTA [place] was performed using 100 cc Isovue 370 contrast. Two-dimensional sagittal and coronal reformatted images obtained. Comparison: None. Parasellar internal carotid arteries demonstrates minimal calcifications bilaterally without critical stenosis/obstruction. Normal carotid terminus with normal branching anterior and middle cerebral arteries bilaterally. More distal anterior cerebral, middle cerebral, and right posterior communicating arteries are normal in CTA appearance. Left posterior communicating artery not seen either occluded or too small for resolution of exam. Examination of the posterior circulation demonstrates patent symmetry of the distal vertebral arteries. Basilar artery is normal in course and caliber with normal branching superior cerebellar arteries. Anterior-inferior cerebellar and posterior-inferior cerebellar arteries are not seen either occluded or too small for resolution of exam. Normal CTA appearance of the basilar tip and posterior cerebral arteries. Venous drainage unremarkable. No abnormal enhancing intra-or extra-axial mass. CT head and CTA neck reported separately. Impression: 1. Minimal bilateral parasellar internal carotid artery calcifications without critical stenosis/obstruction. 2. Left posterior communicating, anterior inferior cerebellar, and posterior inferior cerebellar arteries not seen either occluded or too small for resolution of exam. Latter is more likely as there is no evidence for ischemia/infarct. Comment: Preliminary interpretation was made by [facility]. No critical discrepancy. CTDI 85.14
[2017-05-09] MEDS ORDERED: Ecotrin 325 MG PO SCH (10:00)
[2017-05-09] MEDS ORDERED: Sodium Chloride 0.9% 10 ML FLUSH Syringe IV PRN (12:00)
[2017-05-09] MEDS ORDERED: NORCO 5/325 MG PO PRN (13:48)
[2017-05-09] MEDS ORDERED: SYNTHROID 50 MCG PO SCH (14:00)
[2017-05-09] MEDS ORDERED: Sodium Chloride 0.9% 10 ML FLUSH Syringe IV SCH (14:00)
[2017-05-09] MEDS ORDERED: ESTROGENS CONJUGATED PO SCH (15:00)
[2017-05-09 16:09] VITALS: BP 139/67; PULSE 70; O2SAT 94
[2017-05-09 17:43] LABS: Folate (Folic Acid) 13.7 (8.6-58.9)
[2017-05-09] MEDS ORDERED: VOLTAREN 50 MG PO SCH (18:30)
[2017-05-09] MEDS ORDERED: NON-FORMULARY ITEM (Diclofenac Sodium [Voltaren] 75 MG) PO SCH (22:00)
[2017-05-10] MEDS ORDERED: ESTROGENS CONJUGATED PO SCH (10:00)
--- NOTE | 2017-05-14 10:51 | DS ---
DISCHARGE DIAGNOSES: 1) TRANSIENT ISCHEMIC ATTACK. 2) GASTROESOPHAGEAL REFLUX DISEASE. 3) CHRONIC PAIN SYNDROME. 4) HYPOTHYROIDISM. HOSPITAL COURSE: Carmen Acosta is a 71 year-old woman with past medical history of hypothyroidism, gastroesophageal reflux disease, chronic pain syndrome. She presented to the emergency room yesterday. As per patient she has been having headache and seeing hazy lines off and on for the last few days. Her symptoms particularly got worse yesterday. She states she had persistent headache lasting for two to three hours, had funny sensation on left side of face and her vision was blurred. Reportedly the patient stated that she tried to work at her computer but simply could not do it. She presented to the emergency room last night after about 2 1/2 hours of onset of her symptoms by which time her symptoms had mostly resolved except for sensation on left side of face. Upon arrival in the emergency room the patient was noted to be alert, oriented x3. She had denied any symptoms except funny sensation on left side of face. Initial vitals in the emergency room were notable for blood pressure 146/69, heart rate 64, respiratory rate 18, temperature 98F. Oxygen saturation of 99%. After initial evaluation and treatment she was admitted to medical floor for further monitoring and management. Since admission she has not had further recurrence of symptoms. Also, she has not had any new symptoms. At the time of this evaluation she is alert, awake, comfortable, denies any complaints. She states she feels well and is requesting to be discharged today. PAST MEDICAL HISTORY: As noted above. Also the patient had recently reported memory issues for which she is scheduled to see neurologist on 05/11/2017. ALLERGIES: AZELASTINE, BIAXIN, EPINEPHRINE, PENICILLIN, BEXTRA, AVELOX. MEDICATIONS: Home medications were reviewed. PAST SURGICAL HISTORY: Cholecystectomy. Hysterectomy. ERCP. SOCIAL HISTORY: The patient lives at home. No history of smoking or illicit drug use. FAMILY HISTORY: Noncontributory to current admission. REVIEW OF SYSTEMS: Complains of headache. History of vision changes as noted. Denies dizziness. Denies difficulty in speech, eating, drinking. Denies weakness of extremities. Denies chest pain, increased shortness of breath or cough. Denies abdominal pain, nausea, vomiting. Denies constipation and diarrhea. Denies urinary complaints. PHYSICAL EXAMINATION: Elderly woman lying comfortably in bed, not in acute distress. VITAL SIGNS: Blood pressure 128/58, heart rate 74, respiratory rate 16, temperature 97.4F. Oxygen saturation 95% on room air. HEENT: No pallor or icterus is noted. NECK: No JVD is present. CVS: S1, S2 present. RESPIRATORY: Breath sounds are bilaterally diminished and clear to auscultation. ABDOMEN: Obese, soft, nontender. NEURO: She is alert, oriented x3. No facial asymmetry noted. Evaluation of motor strength in bilateral upper and lower extremities revealed grossly intact motor strength. EXTREMITIES: No edema on bilateral lower extremities. LABORATORY DATA AND TESTS: Labs from admission had shown unremarkable CBC. Today's CBC is unremarkable as well. Initial CMP was notable for chloride of 108 otherwise unremarkable. Today's BMP is unremarkable. Serial troponins have remained negative. UA was negative. Urine tox was negative. CT scan of head showed nonacute senile brain. Chest x-ray showed nonacute chest with chronic features. CT angiogram of neck showed negative CT of neck, incidental C5-C7 degenerative disc disease. CT-angiogram of head showed minimal bibasilar carotid artery calcification without critical stenosis/obstruction, left posterior communicating anterior-inferior cerebellar, posterior-inferior cerebellar arteries not seen either occluded or likely too small for examination. ASSESSMENT: As outlined in discharge diagnosis. PLAN: A 71 year-old woman with past medical history of hypothyroidism, gastroesophageal reflux disease was admitted with symptoms of transient ischemic attack. She improved clinically. Her symptoms had resolved. She remained hemodynamically stable. She is otherwise feeling well and wishing to go home. She was ambulated with stable oxygen saturation. She has had no recurrence of prior symptoms or any appearance of new symptoms throughout her stay. I will obtain baseline TSH, B12, folate. Also initial MRI brain was scheduled by me however the nurse said that it cannot take place until 05/11/2017. The patient states she does have prior scheduled appointment to see neurologist for initial evaluation on 05/11/2017. I advised the patient to follow up for that appointment as scheduled and will defer it to neurology to obtain additional testing regarding MRI. Also the patient will need fasting lipid profile. The patient states that she will obtain that on 05/11/2017. The patient is being discharge home in stable condition. I will start the patient on aspirin. I have advised the patient to follow up with me in ten days. She will follow up with neurology as scheduled. Compliance with diet and medications was stressed. As noted earlier she was advised to obtain fasting lipids as outpatient. I have advised to return to the Emergency Room [facility] if any new signs and symptoms or reappearance of previous signs and symptoms are noted. The patient's clinical condition, work-up results and plan of management and plan after discharge was discussed with her. She seems to be in understanding and agreement. Plan was discussed with patient's nurse.
== END 2017-05-09 17:00 | disposition home or self-care (01) ==
LOC: ED 19:36 → INTOOBSV 23:44 → MED SURG 23:44
PROVIDERS: ADMIT General Practice; ATTEND General Practice
DX: G45.9 Transient cerebral ischemic attack, unspecified (principal); K21.9 Gastro-esophageal reflux disease without esophagitis; G89.4 Chronic pain syndrome; E03.9 Hypothyroidism, unspecified; M50.323 Other cervical disc degeneration at C6-C7 level
CPT/HCPCS: 36000; 36415; 70450; 70496; 70498; 71045; 80048; 80053; 80307; 81002; 82607; 82746; 84443; 84484; 85025; 85730; 93005; 93041; 93268; 99285; G0378; J1200; A9270-GY

== ENCOUNTER 2018-09-04 01:52 | Emergency (ER) | payer MEDICARE, OTHER ==
[2018-09-04] MEDS ORDERED: PROVENTIL 2.5 MG/3 ML NEB IH ONE ×3 (02:10→06:43)
[2018-09-04] MEDS ORDERED: solu-MEDROL 125 MG IV ONE (02:10)
--- NOTE | 2018-09-04 02:19 | ERPHSYRPT ---
- History of Present Illness Time Seen by Provider: 09/04/18 02:03 Source: patient Exam Limitations: no limitations Physician History: 73-year-old white female with history of hypoglycemia, arthritis, GERD, polyps, hypercholesterolemia, coronary artery disease Patient arrives with complaint of sore throat feeling like she has congestion in her upper chest shortness of breath symptoms going on for 3 days. Patient states that she uses injectable cholesterol medication. She states that the last several times that she is used to she apparently had had a feeling as if she has some soreness in her throat. She had been seen by [facility] and been given steroids in Benadryl she apparently did not improve she saw her family doctor who placed her on antibiotics and she improved. She states that August 31 she gave herself an injection of her injectable cholesterol medication and then the next day she began to feel a sore throat felt like she was having some shortness of breath and felt like she was coughing some sputum up in her upper lungs. She has not had a fever no nausea no vomiting. She does give a complaint that she has some erythematous areas surrounding her injection sites on her left thigh which have been chronic. She denies any chest pain Past medical history includes hypoglycemia, arthritis, GERD, polyps, atherosclerotic coronary artery disease, hypercholesterolemia. Patient with multiple allergies patient does state that she's possibly allergic to epinephrine. Past surgical history includes cholecystectomy and hysterectomy. Timing/Duration: day(s) (3 days) Severity: moderate Modifying Factors: Improves With: other (patient states symptoms began after using injectable cholesterol lowering agent 4 days ago) Associated Symptoms: shortness of breath, other (sore throat, chest congestion) , No nausea, No vomiting, No abdominal pain, No heartburn, No diaphoresis, No cough, No chills, No chest pain, No fever, No headaches, No loss of appetite, No malaise, No rash, No syncope, No seizure, No weakness Allergies/Adverse Reactions: azelastine HCl [From Astelin] Allergy (Mild, Verified 09/04/18 01:57) clarithromycin [From Biaxin] Allergy (Mild, Verified 09/04/18 01:57) epinephrine Allergy (Mild, Verified 09/04/18 01:57) valdecoxib [From Bextra] Allergy (Mild, Verified 09/04/18 01:57) moxifloxacin Allergy (Verified 09/04/18 01:57) Home Medications: Estrogens,Conjugated [Premarin] 1 tab PO DAILY 10/04/11 [History] Levothyroxine Sodium [Synthroid] 50 mcg PO DAILY 06/26/16 [History] Diclofenac Sodium [Voltaren] 75 mg PO BID 07/24/16 [History] Hydrocodone Bit/Acetaminophen [Hydrocodon-Acetaminophen 5-325] 1 each PO Q8HPRN PRN 04/25/17 [History] Aspirin 1 tab PO DAILY 05/09/17 [History] Ergocalciferol (Vitamin D2) [Vitamin D] 50,000 cap PO WEEKLY 05/09/17 [History] Misoprostol 200 mcg PO BID 05/26/17 [History] Hx Tetanus, Diphtheria Vaccination/Date Given: Yes Hx Influenza Vaccination/Date Given: No Hx Pneumococcal Vaccination/Date Given: Yes - Review of Systems Constitutional: No Fever, No Chills Eyes: No Symptoms Ears, Nose, & Throat: No Symptoms, Throat Pain, No Ear Pain, No Ear Discharge, No Hearing Changes, No Tinnitus, No Nose Pain, No Nose Congestion, No Nose Discharge, No Sinus Drainage, No Epistaxis, No Mouth Pain, No Mouth Swelling, No Loose Teeth, No Throat Swelling, No Hoarse, No Painful Swallowing, No Snoring , No Stridor Respiratory: Cough, Dyspnea, Other (feels like she has chest congestion), No Cyanosis, No Dyspnea on Exertion ([place]), No Stridor, No Wheezing Cardiac: No Chest Pain, No Edema, No Syncope Abdominal/Gastrointestinal: No Abdominal Pain, No Nausea, No Vomiting, No Diarrhea Genitourinary Symptoms: No Dysuria Musculoskeletal: No Back Pain, No Neck Pain Skin: Other (patient has iindurated skin around injection sites on her left thigh.) Neurological: No Dizziness, No Focal Weakness, No Sensory Changes Psychological: No Symptoms Endocrine: No Symptoms All Other Systems: Reviewed and Negative - Past Medical History Pertinent Past Medical History: Yes Neurological History: No Pertinent History ENT History: No Pertinent History Cardiac History: No Pertinent History Respiratory History: No Pertinent History Endocrine Medical History: Hypoglycemia Musculoskeletal History: Arthritis GI Medical History: GERD, Polyps History: No Pertinent History Psycho-Social History: No Pertinent History Female Reproductive Disorders: No Pertinent History Other Medical History: Thyroid problems - Past Surgical History Past Surgical History: Yes Neuro Surgical History: No Pertinent History Cardiac: No Pertinent History Gastrointestinal: Cholecystectomy Genitourinary: No Pertinent History Musculoskeletal: No Pertinent History Female Surgical History: Hysterectomy Other Surgical History: ERCP - Social History Smoking Status: Never smoker Exposure to second hand smoke: No Drug Use: none Patient Lives Alone: No - Nursing Vital Signs Nursing Vital Signs: Initial Vital Signs Temperature 100.2 F 09/04/18 02:02 Pulse Rate 93 H 09/04/18 02:02 Respiratory Rate 18 09/04/18 02:02 Blood Pressure 175/96 09/04/18 02:02 O2 Sat by Pulse Oximetry 97 09/04/18 02:02 Pain Scale Pain Intensity 0 - Physical Exam General Appearance: no apparent distress, alert Eye Exam: PERRL/EOMI, eyes nml inspection Ears, Nose, Throat Exam: normal ENT inspection, TMs normal, pharynx normal, moist mucous membranes Neck Exam: normal inspection, non-tender, supple, full range of motion Respiratory Exam: diminished breath sounds, No chest tenderness Cardiovascular Exam: regular rate/rhythm, normal heart sounds, normal peripheral pulses, capillary refill <2 sec Gastrointestinal/Abdomen Exam: soft, normal bowel sounds, No tenderness, No mass Back Exam: normal inspection, normal range of motion, No CVA tenderness, No vertebral tenderness Extremity Exam: normal inspection, normal range of motion, pelvis stable Neurologic Exam: alert, 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, cooperative, physical geographer II-XII nml as tested, normal mood/affect, nml cerebellar function, nml station & gait, sensation nml, No motor deficits Skin Exam: other (patient wwith several 2 cm indurated circular areas on her left thigh which she states surrounds previous injection site for her cholesterol lowering agent.) SpO2 Interpretation: normal (97%) - Course Nursing assessment & vital signs reviewed: Yes EKG Interpreted by Me: RATE (74 bpm), Sinus Rhythm, Left [place] Deviation, Other ( EKG: Sinus rhythm, at 74 beats per minute, left axis deviation, no acute ST or T wave changes are noted. Compared to October 12, 2017) - Radiology Exams Chest X-ray Interpretation: Interpreted by me (chest x-ray: No acute disease process noted) - CT Exams Chest CT Interpretation: Tele-radiologist Report (CT chest with contrast: Impression: 1 Will void 3.5 mm right lower lobe nodule on image 36 series 4. For patient' s at low risk (minimal or absent history of smoking and or other known risk factors, (no routine followup is indicated. For patient at high risk (history of smoking or other known risk factors (, consider optional CT at 12 months 2. No aortic aneurysm or dissection 3. No pulmonary emboli are identified 4. No pulmonary edema or consolidation.) Ordered Tests: Active Orders 24 hr Category Date Time Status Freelance Programmer/App Developer STAT Care 09/04/18 02:11 Active EKG-ER Only STAT Care 09/04/18 02:10 Active IV Insertion STAT Care 09/04/18 02:10 Active Pulse Oximetry (ED) STAT Care 09/04/18 02:10 Active CHEST 1 VIEW (PORTABLE) Stat Exams 09/04/18 02:11 Taken CHEST WITH CONTRAST [CT] Stat Exams 09/04/18 03:44 Taken BLOOD CULTURE Stat Lab 09/04/18 03:02 Received CBC W DIFF Stat Lab 09/04/18 03:07 Completed CK-Creatinine Phosphokinase Stat Lab 09/04/18 03:07 Completed CMP Stat Lab 09/04/18 03:07 Completed D-DIMER QUANTITATION Stat Lab 09/04/18 03:07 Completed Lactic Acid Stat Lab 09/04/18 02:56 Completed NT PRO BNP Stat Lab 09/04/18 03:07 Completed TROPONIN Q3H Lab 09/04/18 03:07 Completed VENOUS BLOOD GAS Stat Lab 09/04/18 02:56 Completed Respiratory Therapy Assessment DAILY RT 09/04/18 02:47 Completed Medication Summary Discontinued Medications Generic Name Dose Route Start Last Admin Trade Name Freq PRN Reason Stop Dose Admin Albuterol Sulfate 2.5 mg 09/04/18 02:10 09/04/18 02:48 Proventil 2.5 Mg/3 Ml Neb IH 09/04/18 02:11 2.5 mg STAT ONE Administration Albuterol Sulfate Confirm 09/04/18 02:45 Proventil 2.5 Mg/3 Ml Neb Administered 09/04/18 02:46 Dose 2.5 mg IH .STK-MED ONE Methylprednisolone Sodium Succinate 125 mg 09/04/18 02:10 09/04/18 02:34 Solu-Medrol 125 Mg IV 09/04/18 02:11 125 mg STAT ONE Administration Methylprednisolone Sodium Succinate Confirm 09/04/18 02:34 Solu-Medrol 125 Mg Administered 09/04/18 02:35 Dose 125 mg .ROUTE .STK-MED ONE Methylprednisolone Sodium Succinate Confirm 09/04/18 02:49 Solu-Medrol 125 Mg Administered 09/04/18 02:50 Dose 125 mg .ROUTE .STK-MED ONE Lab/Rad Data: Laboratory Result Diagrams 09/04/18 03:07 09/04/18 03:07 Laboratory Results 09/04/18 09/04/18 09/04/18 Range/Units 03:07 03:07 03:07 WBC (4.0-10.5) K/mm3 RBC (4.1-5.4) M/mm3 Hgb (12.0-16.0) gm/dl Hct (35-47) % MCV (78-100) fl MCH (26-32) pg MCHC (32-36) g/dl RDW (11.5-14.0) % Plt Count (150-450) K/mm3 MPV (6-9.5) fl Gran % (36.0-66.0) % Eos # (Auto) (0-0.5) Absolute Lymphs (auto) (1.0-4.6) Absolute Monos (auto) (0.0-1.3) Lymphocytes % (24.0-44.0) % Monocytes % (0.0-12.0) % Eosinophils % (0.00-5.0) % Basophils % (0.0-0.4) % Absolute Granulocytes (1.4-6.9) Basophils # (0-0.4) D-Dimer 620 H* (215-500) ng/mL pO2/FiO2 Ratio % VBG pH (7.32-7.42) VBG pCO2 at Pat Temp (42-55) mm/Hg VBG pO2 at Pat Temp (25-40) mm/Hg VBG HCO3 (22-28) meq/L VBG O2 Sat (Gissel) (95-100) VBG Base Excess (-2.0-2.0) VBG Hemoglobin VBG Carboxyhemoglobin (0.0-6.9) % T HGB POC Potassium (3.5-5.1) Sodium (137-145) mmol/L Potassium (3.5-5.1) mmol/L Chloride (98-107) mmol/L Carbon Dioxide (22-30) mmol/L Anion Gap (5-15) MEQ/L BUN (7-17) mg/dL Creatinine (0.52-1.04) mg/dL Estimated GFR ML/MIN Glucose (74-106) mg/dL Lactic Acid (0.4-2.0) Calcium (8.4-10.2) mg/dL Total Bilirubin (0.2-1.3) mg/dL AST (14-36) U/L ALT (0-35) U/L Alkaline Phosphatase (38-126) U/L Creatine Kinase (30-135) U/L Troponin I < 0.012 (0.000-0.034) ng/mL NT-Pro-B Natriuret Pep (0-900) pg/mL Serum Total Protein (6.3-8.2) g/dL Albumin (3.5-5.0) g/dL Group A Strep Antibody NEGATIVE (NEGATIVE) 09/04/18 09/04/18 09/04/18 Range/Units 03:07 03:07 02:56 WBC 7.9 (4.0-10.5) K/mm3 RBC 4.74 (4.1-5.4) M/mm3 Hgb 14.8 (12.0-16.0) gm/dl Hct 44.3 (35-47) % MCV 93.5 (78-100) fl MCH 31.2 (26-32) pg MCHC 33.4 (32-36) g/dl RDW 14.2 H (11.5-14.0) % Plt Count 253 (150-450) K/mm3 MPV 10.2 H (6-9.5) fl Gran % 67.7 H (36.0-66.0) % Eos # (Auto) 0.19 (0-0.5) Absolute Lymphs (auto) 1.71 (1.0-4.6) Absolute Monos (auto) 0.62 (0.0-1.3) Lymphocytes % 21.7 L (24.0-44.0) % Monocytes % 7.9 (0.0-12.0) % Eosinophils % 2.4 (0.00-5.0) % Basophils % 0.3 (0.0-0.4) % Absolute Granulocytes 5.35 (1.4-6.9) Basophils # 0.02 (0-0.4) D-Dimer (215-500) ng/mL pO2/FiO2 Ratio 21.0 % VBG pH 7.42 (7.32-7.42) VBG pCO2 at Pat Temp 44 (42-55) mm/Hg VBG pO2 at Pat Temp 26 (25-40) mm/Hg VBG HCO3 28.5 H (22-28) meq/L VBG O2 Sat (Gissel) 55.8 L (95-100) VBG Base Excess 3.4 H (-2.0-2.0) VBG Hemoglobin 14.8 VBG Carboxyhemoglobin 1.5 (0.0-6.9) % T HGB POC Potassium 3.8 (3.5-5.1) Sodium 139 (137-145) mmol/L Potassium 3.6 (3.5-5.1) mmol/L Chloride 101 (98-107) mmol/L Carbon Dioxide 27 (22-30) mmol/L Anion Gap 14.5 (5-15) MEQ/L BUN 17 (7-17) mg/dL Creatinine 0.88 (0.52-1.04) mg/dL Estimated GFR > 60.0 ML/MIN Glucose 96 (74-106) mg/dL Lactic Acid 0.9 (0.4-2.0) Calcium 9.8 (8.4-10.2) mg/dL Total Bilirubin 0.30 (0.2-1.3) mg/dL AST 30 (14-36) U/L ALT 32 (0-35) U/L Alkaline Phosphatase 95 (38-126) U/L Creatine Kinase 60 (30-135) U/L Troponin I (0.000-0.034) ng/mL NT-Pro-B Natriuret Pep 35.2 (0-900) pg/mL Serum Total Protein 7.5 (6.3-8.2) g/dL Albumin 4.2 (3.5-5.0) g/dL Group A Strep Antibody (NEGATIVE) - Progress Progress: improved Progress Note: 09/04/18 06:43 Patient feeling better after Solu-Medrol 125 an albuterol treatment. She still has a little coughing and with talking after several hours but is breathing much better has clear lung smith. Will give patient amoxicillin 500 mg by mouth and. Repeat albuterol treatment plan the send patient home with amoxicillin 500 mg orally 3 times a day for 10 days. She has an albuterol inhaler she is use this 2 puffs every 4-6 hours as needed for shortness of breath. Will also send patient home with tapering dose of prednisone. Patient's chest x-ray no acute disease process noted Patient's CTA of the chest which was obtained secondary to elevated d-dimer impression 13.5 mm ovoid right lower lobe nodule on him his 36 series 4. Her patient's at low risk (minimal or absent history of smoking or other known risk factors), no routine followup is indicated. 4 patient at high risk (history of smoking or of other known risk factors (, consider optional CT at 12 months. 2. No aortic aneurysm or dissection. 3. No pulmonary emboli are identified 4. On pulmonary emboli or consolidation Patient's EKG sinus rhythm 74 beats per minute left axis deviation no acute ST or T wave changes are noted patient was CBC white blood cell 7.9 hemoglobin 14.8 hematocrit 42 platelets 253 d-dimer was 620 VBG pH 7.42 PCO2 44 chemistry sodium 139 potassium 3.6 chloride 101 bicarbonate 27 BUN 17 creatinine 0.88 glucose 96 lactate is 0.9 troponin less than 0.012 BNP 35.2 Patient is in improved condition and feels much better will discharge patient with scripts for amoxicillin and tapering prednisone as noted above. Patient is to use her albuterol inhaler. She is to followup with her family ./ - Departure Departure Disposition: Home Clinical Impression: Shortness of breath, COPD exacerbation, Sore throat, possible reaction to medication Condition: Fair Critical Care Time: No Referrals: DWIGHT MARTÍNEZ [Primary Care Provider] - Instructions: Chronic Obstructive Pulmonary Disease Additional Instructions: Return home. Plenty of fluids. Use your albuterol inhaler 2 puffs every 4-6 hours as needed. Tapering prednisone as directed. Amoxicillin 500 mg orally 3 times a day for 10 days. Followup with your family . Return for acute distress severe symptoms or for any problems. Prescriptions: Amoxicillin 500 mg PO TID #30 capsule
[2018-09-04] MEDS ORDERED: solu-MEDROL 125 MG ONE ×2 (02:34→02:49)
[2018-09-04 03:04] LABS: Lactic Acid 0.9 (0.4-2.0); VBG BASE EXCESS 3.4 (-2.0-2.0); VBG CARBOXYHEMOGLOBIN 1.5 % T HGB (0.0-6.9); VBG HCO3- 28.5 meq/L (22-28); VBG HEMOGLOBIN 14.8; VBG O2 SATURATION 55.8 (95-100); VBG POTASSIUM 3.8 (3.5-5.1); VBG pH 7.42 (7.32-7.42)
[2018-09-04 03:08] LABS: BASOPHIL % 0.3 % (0.0-0.4); Basophil (Absolute #) 0.02 (0-0.4); Eosinophil % 2.4 % (0.00-5.0); Eosinophil (Absolute #) 0.19 (0-0.5); Granulocyte Absolute (ANC) 5.35 (1.4-6.9); Granulocytes % 67.7 % (36.0-66.0); Hematocrit 44.3 % (35-47); Hemoglobin 14.8 gm/dl (12.0-16.0); Lymphocyte (Absolute #) 1.71 (1.0-4.6); Lymphocytes % 21.7 % (24.0-44.0); Mean Cell Volume 93.5 fl (78-100); Mean Corpuscular Hemoglobin 31.2 pg (26-32); Mean Corpuscular Hgb Concent. 33.4 g/dl (32-36); Mean Platelet Volume 10.2 fl (6-9.5); Monocytes % 7.9 % (0.0-12.0); Platelet Count 253 K/mm3 (150-450); Red Blood Count 4.74 M/mm3 (4.1-5.4); Red Cell Distribution Width 14.2 % (11.5-14.0); White Blood Count 7.9 K/mm3 (4.0-10.5)
[2018-09-04 03:36] LABS: ALBUMIN 4.2 g/dL (3.5-5.0); ALKALINE PHOSPHATASE 95 U/L (38-126); ANION GAP 14.5 MEQ/L (5-15); BLOOD UREA NITROGEN 17 mg/dL (7-17); CHLORIDE 101 mmol/L (98-107); CK-Creatinine Phosphokinase 60 U/L (30-135); Calcium 9.8 mg/dL (8.4-10.2); Carbon Dioxide 27 mmol/L (22-30); Creatinine 1 0.88 mg/dL (0.52-1.04); Glucose 96 mg/dL (74-106); NT PRO BNP 35.2 pg/mL (0-900); Potassium 3.6 mmol/L (3.5-5.1); SGOT/AST 30 U/L (14-36); SGPT/ALT 32 U/L (0-35); SODIUM 139 mmol/L (137-145); Total Protein 7.5 g/dL (6.3-8.2)
[2018-09-04] MEDS ORDERED: AMOXIL 500 MG PO ONE (06:42)
[2018-09-04] MEDS ORDERED: AMOXIL 500 MG ONE (06:43)
[2018-09-04 06:49] VITALS: BP 118/75; O2SAT 93
[2018-09-04] MEDS ORDERED: PROVENTIL Solution 2.5 MG/0.5 ML IH ONE (06:56)
[2018-09-04 07:04] VITALS: PULSE 75
--- NOTE | 2018-09-04 08:51 | XRAY ---
Indication: Short of breath. Elevated d-dimer. Multiple contiguous axial images obtained through the chest using 100 cc Isovue 370 contrast and PE protocol. Comparison: None There is good opacification of the pulmonary arteries to include the lobar and segmental branches. No filling defect/pulmonary embolus. Heart is not enlarged. Aorta is normal in course and caliber. A few mediastinal and left hilar calcified nodes. No pathologic mediastinal/hilar lymphadenopathy. Examination of the lung parenchyma demonstrates minimal right middle lobe, lingula, and left lower lobe subsegmental atelectasis/scarring. Small left base calcified granuloma. Right middle and right lower lobe 3-4 mm noncalcified nodules (image 36 series 4) probably granulomatous. No suspicious pulmonary mass, infiltrate, or effusion. Bony thorax intact with minimal degenerative changes throughout the spine. Limited upper abdomen illustrates fatty liver, pneumobilia, and hepatic/splenic calcified granulomas. Impression: 1. Negative pulmonary embolus. No acute cardiopulmonary abnormalities. 2. Right middle and right lower lobe noncalcified micronodules probably granulomatous as there is evidence for old granulomatous disease elsewhere. 3. Incidental fatty liver. Comment: Preliminary interpretation was made by [facility]. No critical discrepancy. CTDI 12.53
--- NOTE | 2018-09-04 08:51 | XRAY ---
Indication: Short of breath. Possible allergic reaction. Comparison: June 03, 2017. Portable apical chest demonstrates minimal left base fibrosis/scarring. Stable left base calcified granuloma. Remaining heart and lungs unremarkable. Bony thorax intact again with mild degenerative changes. Impression: Nonacute chest with chronic features.
== END 2018-09-04 07:16 | disposition home or self-care (01) ==
LOC: ED 01:52
DX: R06.02 Shortness of breath (principal); J44.1 Chronic obstructive pulmonary disease with (acute) exacerbation; J02.9 Acute pharyngitis, unspecified; E78.00 Pure hypercholesterolemia, unspecified; I25.10 Atherosclerotic heart disease of native coronary artery without angina pectoris; M19.90 Unspecified osteoarthritis, unspecified site; K21.9 Gastro-esophageal reflux disease without esophagitis; Z86.010 Personal history of colon polyps
CPT/HCPCS: 36000; 36415; 71045; 71260; 80053; 82550; 82805; 83605; 83880; 84484; 85025; 85379; 87040; 87651; 93005; 93041; 94640; 96374; 99284; J2930; J7609; A9270-GY

== ENCOUNTER 2018-11-30 19:36 | Emergency (ER) | payer MEDICARE, OTHER ==
[2018-11-30] MEDS ORDERED: Pepcid 20 MG PO ONE (19:46)
[2018-11-30] MEDS ORDERED: DECADRON 10MG INJ. IM ONE (19:46)
[2018-11-30] MEDS ORDERED: ZOFRAN ODT 4 MG PO ONE (19:47)
[2018-11-30] MEDS ORDERED: Pepcid 20 MG ONE (19:52)
[2018-11-30] MEDS ORDERED: ZOFRAN ODT 4 MG ONE (19:52)
[2018-11-30] MEDS ORDERED: DECADRON 10MG INJ. ONE (19:52)
--- NOTE | 2018-11-30 19:53 | ERPHSYRPT ---
- History of Present Illness Time Seen by Provider: 11/30/18 19:40 Source: patient Exam Limitations: no limitations Physician History: Horse fly bite to the left anterior lateral lower leg on 11/29/2018. Timing/Duration: yesterday Quality: burning, itchy, painful Severity: moderate Location: extremities (left lower leg) Possible Causes: insect bite Modifying Factors: Improves With: antihistamine (took one hour prior to coming into the emergency department) Associated Symptoms: swelling/mass/lumps (localized swelling to the bite site), No blisters, No change in skin texture, No difficulty breathing, No fever, No flushing, No headache, No hives, No jaundice, No malaise, No numbness, No pallor , No paresthesia, No petechiae, No rash, No sore throat, No tingling Allergies/Adverse Reactions: azelastine HCl [From Astelin] Allergy (Mild, Verified 09/04/18 01:57) clarithromycin [From Biaxin] Allergy (Mild, Verified 09/04/18 01:57) epinephrine Allergy (Mild, Verified 09/04/18 01:57) valdecoxib [From Bextra] Allergy (Mild, Verified 09/04/18 01:57) moxifloxacin Allergy (Verified 09/04/18 01:57) Home Medications: Estrogens,Conjugated [Premarin] 1 tab PO DAILY 10/04/11 [History] Levothyroxine Sodium [Synthroid] 75 mcg PO DAILY 06/26/16 [History] Hydrocodone Bit/Acetaminophen [Hydrocodon-Acetaminophen 5-325] 1 each PO Q8HPRN PRN 04/25/17 [History] Aspirin 1 tab PO DAILY 05/09/17 [History] Ergocalciferol (Vitamin D2) [Vitamin D] 50,000 cap PO WEEKLY 05/09/17 [History] Misoprostol 200 mcg PO BID 05/26/17 [History] Hx Tetanus, Diphtheria Vaccination/Date Given: Yes Hx Influenza Vaccination/Date Given: No Hx Pneumococcal Vaccination/Date Given: Yes - Past Medical History Pertinent Past Medical History: Yes Neurological History: No Pertinent History ENT History: No Pertinent History Cardiac History: No Pertinent History Respiratory History: No Pertinent History Endocrine Medical History: Hypoglycemia Musculoskeletal History: Arthritis GI Medical History: GERD, Polyps History: No Pertinent History Psycho-Social History: No Pertinent History Female Reproductive Disorders: No Pertinent History Other Medical History: Thyroid problems - Past Surgical History Past Surgical History: Yes Neuro Surgical History: No Pertinent History Cardiac: No Pertinent History Gastrointestinal: Cholecystectomy Genitourinary: No Pertinent History Musculoskeletal: No Pertinent History Female Surgical History: Hysterectomy Other Surgical History: ERCP - Social History Smoking Status: Never smoker Exposure to second hand smoke: No Drug Use: none Patient Lives Alone: No - Nursing Vital Signs Nursing Vital Signs: Initial Vital Signs Temperature 98.3 F 11/30/18 19:37 Pulse Rate 70 11/30/18 19:37 Respiratory Rate 17 11/30/18 19:37 Blood Pressure 138/76 11/30/18 19:37 O2 Sat by Pulse Oximetry 98 11/30/18 19:37 Pain Scale Pain Intensity 6 - Physical Exam General Appearance: no apparent distress, alert Eye Exam: PERRL/EOMI, eyes nml inspection Ears, Nose, Throat Exam: normal ENT inspection, pharynx normal, moist mucous membranes Neck Exam: normal inspection, non-tender, supple, full range of motion Respiratory Exam: normal breath sounds, lungs clear, No respiratory distress Cardiovascular Exam: regular rate/rhythm, normal heart sounds, normal peripheral pulses, capillary refill <2 sec Gastrointestinal/Abdomen Exam: soft, mass, No tenderness Back Exam: normal inspection, normal range of motion, No CVA tenderness, No vertebral tenderness Extremity Exam: normal inspection, normal range of motion, No contusions, No parasthesia, No ghazala's sign, No pedal edema, No swelling Neurologic Exam: alert, 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, cooperative, seismograph helper II-XII 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 as tested, normal mood/affect, sensation nml, No motor deficits Skin Exam: normal color, warm, dry, other (singel localized urticaria with mild surrounding erythema with tenderness to palpation on the left lower leg on anterior aspect), No rash, No petechiae, No jaundice, No cyanosis, No ecchymosis , No pale Lymphatic Exam: No adenopathy SpO2 Interpretation: normal O2 Delivery: Room Air Ordered Tests: Medication Summary Discontinued Medications Generic Name Dose Route Start Last Admin Trade Name Freq PRN Reason Stop Dose Admin Dexamethasone Sodium Phosphate 10 mg 11/30/18 19:46 11/30/18 19:57 Decadron 10mg Inj. IM 11/30/18 19:47 10 mg STAT ONE Administration Dexamethasone Sodium Phosphate Confirm 11/30/18 19:52 Decadron 10mg Inj. Administered 11/30/18 19:53 Dose 10 mg .ROUTE .STK-MED ONE Famotidine 40 mg 11/30/18 19:46 11/30/18 19:54 Pepcid 20 Mg PO 11/30/18 19:47 40 mg STAT ONE Administration Famotidine Confirm 11/30/18 19:52 Pepcid 20 Mg Administered 11/30/18 19:53 Dose 40 mg .ROUTE .STK-MED ONE Ondansetron HCl 4 mg 11/30/18 19:47 11/30/18 19:57 Zofran Odt 4 Mg PO 11/30/18 19:48 4 mg STAT ONE Administration Ondansetron HCl Confirm 11/30/18 19:52 Zofran Odt 4 Mg Administered 11/30/18 19:53 Dose 4 mg .ROUTE .STK-MED ONE - Progress Progress: improved Progress Note: 11/30/18 20:28 Patient feels better and is ready to go home. No rashes, no respiratory distress,no wheezing, no stridor, and hemodynamically in good condition. - Departure Departure Disposition: Home Clinical Impression: Elevated blood pressure reading without diagnosis of hypertension Insect bite of left lower leg with local reaction Qualifiers: Encounter type: initial encounter Qualified Code(s): S80.862A - Insect bite ( nonvenomous), left lower leg, initial encounter Condition: Good Critical Care Time: No Referrals: DWIGHT MARTÍNEZ [Primary Care Provider] - Follow Up with PCP/3 days Instructions: DASH Diet, Insect Bites and Stings (DC) Additional Instructions: Return immediately back to the emergency department if any worsening redness, swelling, pain, red streaking up or down the leg, heart racing, shortness of breath, new rash elsewhere on the body, uncontrollable itching, or any other concerning signs or symptoms that was not present at today's emergency room visit for immediate reevaluation in the emergency department. Prescriptions: EPINEPHrine [Epipen 0.3 MG] 0.3 mg IM DAILY PRN PRN #1 pack PRN Reason: Allergies Loratadine 10 mg [Claritin 10 mg] 10 mg PO DAILY #10 tablet Prednisone 20 mg [Deltasone 20 mg] 60 mg PO DAILY #9 tablet
[2018-11-30 20:36] VITALS: BP 131/55; PULSE 65; O2SAT 97
== END 2018-11-30 20:37 | disposition home or self-care (01) ==
LOC: ED 19:36
DX: R03.0 Elevated blood-pressure reading, without diagnosis of hypertension (principal); S80.862A Insect bite (nonvenomous), left lower leg, initial encounter
CPT/HCPCS: 96372; 99284; J1100; Q0162; A9270-GY

== ENCOUNTER 2019-05-22 20:39 | Emergency (ER) | payer MEDICARE, OTHER ==
--- NOTE | 2019-05-22 20:46 | ERPHSYRPT ---
- History of Present Illness Time Seen by Provider: 05/22/19 20:45 Source: patient, family Exam Limitations: no limitations Physician History: This is a 73-year-old female who has history of some mild COPD and presents with cough symptoms myalgias arthralgias that started yesterday. Today she had a fever as high as 101 F. She has had a sore throat. She denies chest pain. She denies abdominal pain. She has no vomiting and no diarrhea. She has no known exposure to anyone with similar symptoms. Timing/Duration: yesterday Cough Quality/Degree: mild, dry cough Possible Cause: occasional episodes Modifying Factors: Improves With: albuterol nebulizer (Was helpful), coughing Associated Symptoms: fever, muscle aches, sore throat, No earache, No shortness of breath, No wheezing Allergies/Adverse Reactions: azelastine HCl [From Astelin] Allergy (Mild, Verified 05/22/19 20:59) clarithromycin [From Biaxin] Allergy (Mild, Verified 05/22/19 20:59) epinephrine Allergy (Mild, Verified 05/22/19 20:59) valdecoxib [From Bextra] Allergy (Mild, Verified 05/22/19 20:59) moxifloxacin Allergy (Verified 05/22/19 20:59) Home Medications: Estrogens,Conjugated [Premarin] 1 tab PO DAILY 10/04/11 [History] Levothyroxine Sodium [Synthroid] 75 mcg PO DAILY 06/26/16 [History] Aspirin 1 tab PO DAILY 05/09/17 [History] Ergocalciferol (Vitamin D2) [Vitamin D] 50,000 cap PO WEEKLY 05/09/17 [History] Clopidogrel Bisulfate 75 mg [PLAVIX 75 MG Tablet] 75 mg PO DAILY 05/22/19 [History] Gabapentin 100 mg PO BID 05/22/19 [History] Hydrocodone/Acetaminophen [Hydrocodone-Acetamin 5-325 mg] 1 each PO BID PRN 11/02 [History] Pantoprazole 20 mg [Protonix 20MG Tablet] 20 mg PO DAILY 05/22/19 [History ] Hx Tetanus, Diphtheria Vaccination/Date Given: Yes Hx Influenza Vaccination/Date Given: No Hx Pneumococcal Vaccination/Date Given: Yes - Review of Systems Constitutional: Fever Eyes: No Symptoms Ears, Nose, & Throat: Throat Pain (Mild sore throat) Respiratory: Cough Cardiac: No Symptoms Abdominal/Gastrointestinal: No Symptoms Genitourinary Symptoms: No Symptoms Musculoskeletal: No Symptoms Skin: No Symptoms Neurological: No Symptoms Psychological: No Symptoms Endocrine: No Symptoms Hematologic/Lymphatic: No Symptoms Immunological/Allergic: No Symptoms All Other Systems: Reviewed and Negative - Past Medical History Pertinent Past Medical History: Yes Neurological History: No Pertinent History ENT History: No Pertinent History Cardiac History: No Pertinent History Respiratory History: No Pertinent History Endocrine Medical History: Hypoglycemia Musculoskeletal History: Arthritis GI Medical History: GERD, Polyps History: No Pertinent History Psycho-Social History: No Pertinent History Female Reproductive Disorders: No Pertinent History Other Medical History: Thyroid problems - Past Surgical History Past Surgical History: Yes Neuro Surgical History: No Pertinent History Cardiac: No Pertinent History Respiratory: No Pertinent History Gastrointestinal: Cholecystectomy Genitourinary: No Pertinent History Musculoskeletal: No Pertinent History Female Surgical History: Hysterectomy Other Surgical History: ERCP - Social History Smoking Status: Never smoker Exposure to second hand smoke: No Drug Use: none Patient Lives Alone: No - Nursing Vital Signs Nursing Vital Signs: Initial Vital Signs Temperature 100.9 F 05/22/19 20:48 Pulse Rate 99 H 05/22/19 20:48 Respiratory Rate 18 05/22/19 20:48 Blood Pressure 149/101 05/22/19 20:48 O2 Sat by Pulse Oximetry 96 05/22/19 20:48 Pain Scale Pain Intensity 6 - Physical Exam General Appearance: mild distress, alert, anxiety Eye Exam: PERRL/EOMI, eyes nml inspection Ears, Nose, Throat Exam: normal ENT inspection, moist mucous membranes Neck Exam: normal inspection, non-tender, supple, full range of motion Respiratory Exam: normal breath sounds, lungs clear, airway intact, No chest tenderness, No respiratory distress Cardiovascular Exam: regular rate/rhythm, normal heart sounds, normal peripheral pulses Gastrointestinal/Abdomen Exam: soft, normal bowel sounds, No tenderness Pelvic Exam: not done Rectal Exam: not done Back Exam: normal inspection, normal range of motion, No CVA tenderness, No vertebral tenderness Extremity Exam: normal inspection, normal range of motion, pelvis stable Neurologic Exam: alert, 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, cooperative, sustainable design consultant II-XII nml as tested Skin Exam: normal color, warm, dry Lymphatic Exam: No adenopathy SpO2 Interpretation: normal O2 Delivery: Room Air Ordered Tests: Active Orders 24 hr Category Date Time Status CHEST 1 VIEW (PORTABLE) Stat Exams 05/22/19 20:58 Taken Peak Expiratory Flow Rate ONCE RT 05/22/19 21:12 Active Respiratory Therapy Assessment DAILY RT 05/22/19 21:12 Active Medication Summary Discontinued Medications Generic Name Dose Route Start Last Admin Trade Name Jessica PRN Reason Stop Dose Admin Hydrocodone Bitart/Acetaminophen 10 ml 05/22/19 21:07 05/22/19 21:16 Hydrocodone-Acetamin 2.5-108/5 Ml Solution PO 05/22/19 21:08 10 ml STAT STA Administration Hydrocodone Bitart/Acetaminophen Confirm 05/22/19 21:15 Hydrocodone-Acetamin 2.5-108/5 Ml Solution Administered 05/22/19 21:16 Dose 10 ml .ROUTE .STK-MED ONE Albuterol/Ipratropium 3 ml 05/22/19 20:56 05/22/19 21:07 Duoneb 0.5-3 Mg/3 Ml Neb IH 05/22/19 20:57 3 ml STAT ONE Administration Albuterol/Ipratropium Confirm 05/22/19 21:05 Duoneb 0.5-3 Mg/3 Ml Neb Administered 05/22/19 21:06 Dose 3 ml IH .STK-MED ONE Methylprednisolone Sodium Succinate 125 mg 05/22/19 20:56 05/22/19 21:05 Solu-Medrol 125 Mg IM 05/22/19 20:57 125 mg STAT ONE Administration Methylprednisolone Sodium Succinate Confirm 05/22/19 21:02 Solu-Medrol 125 Mg Administered 05/22/19 21:03 Dose 125 mg .ROUTE .STK-MED ONE Lab/Rad Data: Laboratory Results 05/22/19 Range/Units 21:12 Influenza Type A Ag NEGATIVE (NEGATIVE) Influenza Type B Ag NEGATIVE (NEGATIVE) RSV (PCR) NEGATIVE (Negative) Group A Strep Antibody NOT DETECTED (NEGATIVE) - Progress Progress: improved, re-examined Air Movement: good Progress Note: 05/22/19 21:41 Chest x-ray reveals no acute pulmonary process. 05/22/19 21:58 Patient states she is feeling so much better. Blood Culture(s) Obtained: No Antibiotics given: Yes Counseled pt/family regarding: lab results, diagnosis, need for follow-up, rad results - Departure Departure Disposition: Home Clinical Impression: Bronchitis, Fever Condition: Stable Critical Care Time: No Referrals: DWIGHT MARTÍNEZ [Primary Care Provider] - Additional Instructions: Drink plenty of fluids. Follow-up with your primary care physician and pain specialist tomorrow for further management and additional prescriptions. Prescriptions: Cefdinir 300 mg PO BID 7 Days #14 capsule Prednisone 10 mg [Deltasone 10 mg] 10 mg PO TID #12 tablet
[2019-05-22] MEDS ORDERED: DUONEB 0.5-3 MG/3 ml Neb IH ONE ×2 (20:56→21:05)
[2019-05-22] MEDS ORDERED: solu-MEDROL 125 MG IM ONE (20:56)
[2019-05-22] MEDS ORDERED: solu-MEDROL 125 MG ONE (21:02)
[2019-05-22] MEDS ORDERED: HYDROCODONE-ACETAMIN 2.5-108/5 ML SOLUTION PO STA (21:07)
[2019-05-22] MEDS ORDERED: HYDROCODONE-ACETAMIN 2.5-108/5 ML SOLUTION ONE (21:15)
[2019-05-22 21:41] LABS: Group A Strep NOT DETECTED (NEGATIVE)
[2019-05-22 21:46] LABS: INFLUENZA A NEGATIVE (NEGATIVE); INFLUENZA B NEGATIVE (NEGATIVE); RESPIRATORY SYNCTIAL VIRUS NEGATIVE (Negative)
[2019-05-22] MEDS ORDERED: Rocephin 1000 MG INJ IM ONE (22:01)
[2019-05-22] MEDS ORDERED: XYLOCAINE 1% HCL 20 ML MDV IJ ONE (22:05)
[2019-05-22] MEDS ORDERED: Rocephin 1000 MG INJ ONE (22:05)
[2019-05-22 22:47] VITALS: BP 116/64; PULSE 82; O2SAT 94
--- NOTE | 2019-05-23 08:56 | XRAY ---
Indication: Fever and cough. Comparison: September 04, 2018. Portable chest demonstrates normal heart and lungs with stable left base calcified granulomas. Bony thorax intact again with mild degenerative changes and scoliosis. No new/acute findings.
== END 2019-05-22 22:40 | disposition home or self-care (01) ==
LOC: ED 20:39
DX: J40 Bronchitis, not specified as acute or chronic (principal); R50.9 Fever, unspecified; J44.9 Chronic obstructive pulmonary disease, unspecified; Z79.899 Other long term (current) drug therapy; Z79.891 Long term (current) use of opiate analgesic
CPT/HCPCS: 71045; 87631; 87651; 94150; 94640; 96372; 99284; J0696; J2930; A9270-GY

== ENCOUNTER 2019-06-10 10:08 | Emergency (ER) | payer MEDICARE, OTHER ==
[2019-06-10 10:35] VITALS: BP 151/76
--- NOTE | 2019-06-10 11:01 | ERPHSYRPT ---
- History of Present Illness Time Seen by Provider: 06/10/19 10:45 Historian: patient Patient Subjective Stated Complaint: "I wanted to go to my PCP today but the office was closed. I have been constipated on and off for a while and I have pain in my left upper abdomen that goes into my left ribs and into my back. I had a BM yesterday and it was very small I can't seem to get everything out. I think I may have a hernia too. I have been taking laxitives at home and I have tried other things to help with my constipation. I'm on norco and I know that makes me constipated so I have reduced my dose of that because of my constipation." Triage Nursing Assessment: Pt is alert and 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. Able to ambulate and communicate normally. Arrives to ER to be evaulated for constipation and abd pains. Abd feels soft but appears slighly distended. States feels "bloated". Pt denies vomiting, states did have nausea yesterday. Lungs clear and equal throughout. Resp are unlabored at this time. Skin pink, warm, and dry. Timing/Duration: yesterday, intermittent Activities at Onset: rest Quality: aching Allergies/Adverse Reactions: azelastine HCl [From Astelin] Allergy (Mild, Verified 06/10/19 10:36) clarithromycin [From Biaxin] Allergy (Mild, Verified 06/10/19 10:36) epinephrine Allergy (Mild, Verified 06/10/19 10:36) from dentist office, mixed with lidocaine when numbing mouth caused mild reaction. valdecoxib [From Bextra] Allergy (Mild, Verified 06/10/19 10:36) moxifloxacin Allergy (Verified 06/10/19 10:36) Home Medications: Estrogens,Conjugated [Premarin] 1 tab PO DAILY 10/04/11 [History] Levothyroxine Sodium [Synthroid] 75 mcg PO DAILY 06/26/16 [History] Aspirin 1 tab PO DAILY 05/09/17 [History] Ergocalciferol (Vitamin D2) [Vitamin D] 50,000 cap PO WEEKLY 05/09/17 [History] Clopidogrel Bisulfate 75 mg [PLAVIX 75 MG Tablet] 75 mg PO DAILY 05/22/19 [History] Hydrocodone/Acetaminophen [Hydrocodone-Acetamin 5-325 mg] 1 each PO BID PRN 11/02 [History] Pantoprazole 20 mg [Protonix 20MG Tablet] 20 mg PO DAILY 05/22/19 [History ] Hx Tetanus, Diphtheria Vaccination/Date Given: Yes Hx Influenza Vaccination/Date Given: No Hx Pneumococcal Vaccination/Date Given: Yes Immunizations Up to Date: No (needs new shingles vaccine) Travel Risk - International Travel Have you traveled outside of the country in past 3 weeks: No Have you or anyone close to you been diagnosed with or: No Do your reside in a community with a known COVID-19 case?: Yes If Yes where:: [facility] - Coronavirus Screening Has patient experienced Coronavirus symptoms: No - Past Medical History Pertinent Past Medical History: Yes Neurological History: No Pertinent History ENT History: No Pertinent History Cardiac History: No Pertinent History Respiratory History: No Pertinent History Endocrine Medical History: Hypoglycemia Musculoskeletal History: Arthritis, Degenerative Disk Disease GI Medical History: GERD, Polyps History: No Pertinent History Psycho-Social History: No Pertinent History Female Reproductive Disorders: No Pertinent History Other Medical History: Thyroid problems, heart blockage - Past Surgical History Past Surgical History: Yes Neuro Surgical History: No Pertinent History Cardiac: No Pertinent History Respiratory: No Pertinent History Gastrointestinal: Cholecystectomy Genitourinary: No Pertinent History Musculoskeletal: No Pertinent History Female Surgical History: Hysterectomy Other Surgical History: ERCP - Social History Smoking Status: Never smoker Exposure to second hand smoke: No Drug Use: none Patient Lives Alone: No - Female History Hx Now: No - Nursing Vital Signs Nursing Vital Signs: Initial Vital Signs Temperature 98.0 F 06/10/19 10:23 Pulse Rate 69 06/10/19 10:23 Respiratory Rate 18 06/10/19 10:23 Blood Pressure 151/76 06/10/19 10:23 O2 Sat by Pulse Oximetry 98 06/10/19 10:23 Pain Scale Pain Intensity 5 - Physical Exam SpO2: 98 - Course Nursing assessment & vital signs reviewed: Yes Ordered Tests: Active Orders 24 hr Category Date Time Status ABDOMEN 2 VIEW Stat Exams 06/10/19 11:06 Completed - Progress Progress: pain not gone completely, re-examined Counseled pt/family regarding: diagnosis, need for follow-up, rad results - Departure Departure Disposition: Home Clinical Impression: Constipation Qualifiers: Constipation type: unspecified constipation type Qualified Code(s): K59.00 - Constipation, unspecified Condition: Stable Critical Care Time: No Referrals: DWIGHT MARTÍNEZ [Primary Care Provider] - Follow Up with PCP/3 days Instructions: Constipation, Adult (DC) Additional Instructions: Take daily MiraLAX and Colace unless you develop diarrhea. Follow-up with primary care/gastroenterology for reevaluation. Return to ER for any worsening. Iincreased fiber rich diet/fiber supplements.
[2019-06-10 11:17] VITALS: PULSE 60
--- NOTE | 2019-06-10 11:22 | XRAY ---
Indication: Left upper abdomen pain/pressure. Comparison: None 2 views of the abdomen demonstrates nonspecific nonobstructed bowel gas pattern with mild scattered colonic fecal debris greatest in the right hemicolon. Calcified hepatic/splenic granulomas and cholecystectomy clips. Solid organs unremarkable. Osseous structures intact with lower lumbar degenerative spondylosis and mild levorotoscoliosis centered at L1-L2. Lung bases are clear with incidental left base calcified granuloma. Impression: Nonacute nonobstructed abdomen.
[2019-06-10 12:08] VITALS: O2SAT 98
== END 2019-06-10 12:14 | disposition home or self-care (01) ==
LOC: ED 10:08
DX: K59.00 Constipation, unspecified (principal); Z79.899 Other long term (current) drug therapy
CPT/HCPCS: 74021; 99283

== ENCOUNTER 2019-08-05 11:45 | Observation (INO) | payer MEDICARE, OTHER ==
--- NOTE | 2019-08-05 12:04 | ERPHSYRPT ---
- History of Present Illness Time Seen by Provider: 08/05/19 12:01 Source: patient Exam Limitations: no limitations Patient Subjective Stated Complaint: pt to ER with complaints of dizziness/ chest pain L side. pt had some SOB last week. Had telephone apt with dr. kuo office thursday. pt states she went in to see dr wright and was told to come in to the ER. Dizziness started yesterday. Triage Nursing Assessment: pt A&Ox4. pt ambulatory. pt skin pwd. Physician History: Patient is here with dizziness, shortness of breath, left-sided chest pain. Patient states that her dizziness started acutely yesterday. There was a gradual onset. No falls no trauma. She does have a remote history of vertigo and a TIA. Patient states that she has tried taking meclizine. She has not felt any improvement. Patient did complain of some shortness of breath that started last week. Has continued all this week. Patient states that she was seen by her PCP just prior to arrival, Dr. Wright she was sent here for cardiac evaluation and further work-up. Location: Generalized Quality: Left-sided chest pain, dizziness Radiation: None Severity: Moderate Duration: Yesterday Timing: Gradual Modifying factors/associated signs and symptoms: She has tried meclizine and other home medications. Allergies/Adverse Reactions: azelastine HCl [From Astelin] Allergy (Mild, Verified 08/05/19 11:55) clarithromycin [From Biaxin] Allergy (Mild, Verified 08/05/19 11:55) epinephrine Allergy (Mild, Verified 08/05/19 11:55) from dentist office, mixed with lidocaine when numbing mouth caused mild reaction. valdecoxib [From Bextra] Allergy (Mild, Verified 08/05/19 11:55) moxifloxacin Allergy (Verified 08/05/19 11:55) Home Medications: Estrogens,Conjugated [Premarin] 1 tab PO DAILY 10/04/11 [History] Levothyroxine Sodium [Synthroid] 75 mcg PO DAILY 06/26/16 [History] Aspirin 1 tab PO DAILY 05/09/17 [History] Ergocalciferol (Vitamin D2) [Vitamin D] 50,000 cap PO WEEKLY 05/09/17 [History] Clopidogrel Bisulfate 75 mg [PLAVIX 75 MG Tablet] 75 mg PO DAILY 05/22/19 [History] Hydrocodone/Acetaminophen [Hydrocodone-Acetamin 5-325 mg] 1 each PO BID PRN 11/02 [History] Pantoprazole 20 mg [Protonix 20MG Tablet] 20 mg PO DAILY 05/22/19 [History ] Hx Tetanus, Diphtheria Vaccination/Date Given: Yes Hx Influenza Vaccination/Date Given: No Hx Pneumococcal Vaccination/Date Given: Yes Immunizations Up to Date: Yes Travel Risk - International Travel Have you traveled outside of the country in past 3 weeks: No Have you or anyone close to you been diagnosed with or: No Do your reside in a community with a known COVID-19 case?: Yes If Yes where:: [place] - Coronavirus Screening Has patient experienced Coronavirus symptoms: No - Review of Systems Constitutional: No Fever, No Chills Eyes: No Symptoms Ears, Nose, & Throat: No Symptoms Respiratory: No Cough, No Dyspnea Cardiac: Chest Pain, No Edema, No Syncope Abdominal/Gastrointestinal: No Abdominal Pain, No Nausea, No Vomiting, No Diarrhea Genitourinary Symptoms: No Dysuria Musculoskeletal: No Back Pain, No Neck Pain Skin: No Rash Neurological: Dizziness, No Focal Weakness, No Sensory Changes Psychological: No Symptoms Endocrine: No Symptoms All Other Systems: Reviewed and Negative - Past Medical History Pertinent Past Medical History: No Neurological History: No Pertinent History ENT History: No Pertinent History Cardiac History: No Pertinent History, Myocardial Infarction ([place]) Respiratory History: No Pertinent History Endocrine Medical History: Hypoglycemia Musculoskeletal History: Arthritis, Degenerative Disk Disease GI Medical History: GERD, Polyps History: No Pertinent History Psycho-Social History: No Pertinent History Female Reproductive Disorders: No Pertinent History Other Medical History: Thyroid problems, heart blockage - Past Surgical History Past Surgical History: Yes Neuro Surgical History: No Pertinent History Cardiac: No Pertinent History Respiratory: No Pertinent History Gastrointestinal: Cholecystectomy Genitourinary: No Pertinent History Musculoskeletal: No Pertinent History Female Surgical History: Hysterectomy Other Surgical History: ERCP - Social History Smoking Status: Never smoker Exposure to second hand smoke: No Drug Use: none Patient Lives Alone: No - Female History Hx Now: No - Nursing Vital Signs Nursing Vital Signs: Initial Vital Signs Temperature 98.1 F 08/05/19 11:56 Pulse Rate 71 08/05/19 11:56 Respiratory Rate 17 08/05/19 11:56 Blood Pressure 150/82 08/05/19 11:56 O2 Sat by Pulse Oximetry 96 08/05/19 11:56 Pain Scale Pain Intensity 0 - Physical Exam General Appearance: no apparent distress, alert Eye Exam: PERRL/EOMI, eyes nml inspection Ears, Nose, Throat Exam: normal ENT inspection, TMs normal, pharynx normal, moist mucous membranes Neck Exam: normal inspection, non-tender, supple, full range of motion Respiratory Exam: normal breath sounds, lungs clear, No respiratory distress Cardiovascular Exam: regular rate/rhythm, normal heart sounds, normal peripheral pulses Gastrointestinal/Abdomen Exam: soft, normal bowel sounds, No tenderness, No mass Back Exam: normal inspection, normal range of motion, No CVA tenderness, No vertebral tenderness Extremity Exam: normal inspection, normal range of motion, pelvis stable Neurologic Exam: alert, 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, cooperative, normal mood/affect, nml cerebellar function, nml station & gait, sensation nml, No motor deficits Skin Exam: normal color, warm, dry, No rash Lymphatic Exam: No adenopathy SpO2 Interpretation: normal SpO2: 96 Comments: 08/05/19 13:00 Motor: There is no pronator drift of out-stretched arms. Muscle bulk and tone are normal. Strength is full bilaterally. Reflexes: Reflexes are 2+ and symmetric at the biceps, triceps, knees, and ankles. Plantar responses are flexor. Sensory: Light touch sense are intact in bilateral upper and lower extremities. There is no sign of neglect. Coordination: Rapid alternating movements are intact. There is no dysmetria on [id number] and [id number]. There are no abnormal or extraneous movements. Romberg is absent. Gait/Stance: Posture is normal. Gait is steady with normal steps, base, arm swing, and turning. Heel and toe walking are normal. Tandem gait is normal. - Course Nursing assessment & vital signs reviewed: Yes EKG Interpreted by Me: RATE, Sinus Rhythm - Radiology Exams Chest X-ray Interpretation: Interpreted by me, Negative Ordered Tests: Active Orders 24 hr Category Date Time Status Bedrest with BRP/BSC ROUTINE Activity 08/05/19 14:37 Active Bedrest with BRP/BSC ROUTINE Activity 08/05/19 14:39 Active Admit as Inpatient ROUTINE Care 08/05/19 14:37 Active Loans Consultant STAT Care 08/05/19 12:11 Active Code Status Order ROUTINE Care 08/05/19 14:37 Active Code Status Order ROUTINE Care 08/05/19 14:39 Active EKG-ER Only STAT Care 08/05/19 12:11 Active IV Care Q6H Care 08/05/19 14:37 Active IV Care Q6H Care 08/05/19 14:39 Active IV Insertion STAT Care 08/05/19 12:11 Active Implement Chest Pain Pathway ROUTINE Care 08/05/19 14:37 Active Implement Chest Pain Pathway ROUTINE Care 08/05/19 14:39 Active Toro Hose, Apply ROUTINE Care 08/05/19 14:37 Active Toro Hose, Apply ROUTINE Care 08/05/19 14:39 Active Weight,Daily 0600 Care 08/05/19 14:37 Active Weight,Daily 0600 Care 08/05/19 14:39 Active House Regular Diet Diet 08/05/19 Breakfast Active CHEST 2 VIEWS (PA AND LAT) Stat Exams 08/05/19 12:11 Completed CHEST WITH CONTRAST [CT] Stat Exams 08/05/19 12:50 Completed ECHO W/2D AND DOPPLER [US] Routine Exams 08/05/19 Ordered HEAD WITHOUT CONTRAST [CT] Stat Exams 08/05/19 12:12 Completed CBC W DIFF Stat Lab 08/05/19 12:15 Completed CK-Creatinine Phosphokinase Stat Lab 08/05/19 12:15 Completed CMP Stat Lab 08/05/19 12:15 Completed D-DIMER QUANTITATIVE Stat Lab 08/05/19 12:15 Completed LIPID PROFILE AM.LAB Lab 08/06/19 04:00 Ordered NT PRO BNP Stat Lab 08/05/19 12:15 Completed TROPONIN Q3H Lab 08/05/19 12:15 Completed TROPONIN Q3H Lab 08/05/19 15:15 Ordered TROPONIN Q3H Lab 08/05/19 18:15 Ordered TROPONIN Q3H Lab 08/05/19 21:15 Ordered TROPONIN Q3H Lab 08/06/19 00:15 Ordered EKG Q8HX2,QAMX3,PRN RT 08/05/19 14:37 Active EKG Q8HX2,QAMX3,PRN RT 08/05/19 14:39 Active Pulse Oximetry Q4H RT 08/05/19 14:37 Active Pulse Oximetry Q4H RT 08/05/19 14:39 Active Medication Summary Generic Name Dose Route Start Last Admin Trade Name Jaxonq PRN Reason Stop Dose Admin Acetaminophen 650 mg 08/05/19 14:37 Tylenol 325 Mg PO 09/04/19 14:36 Q4H PRN PRN PAIN AND/OR FEVER Acetaminophen 650 mg 08/05/19 14:38 Tylenol 325 Mg PO 09/04/19 14:37 Q4H PRN PRN PAIN AND/OR FEVER Al Hydrox/Mg Hydrox/Simethicone 30 ml 08/05/19 14:37 Maalox Es 30 Ml Unit Dose PO 09/04/19 14:36 Q4H PRN PRN INDIGESTION Al Hydrox/Mg Hydrox/Simethicone 30 ml 08/05/19 14:38 Maalox Es 30 Ml Unit Dose PO 09/04/19 14:37 Q4H PRN PRN INDIGESTION Magnesium Hydroxide 30 - 60 ml 08/05/19 14:37 Milk Of Magnesia 30 Ml PO 09/04/19 14:36 QDP PRN CONSTIPATION Magnesium Hydroxide 30 - 60 ml 08/05/19 14:38 Milk Of Magnesia 30 Ml PO 09/04/19 14:37 QDP PRN CONSTIPATION Ondansetron HCl 4 mg 08/05/19 14:37 Zofran 4 Mg/2 Ml Vial IV 09/04/19 14:36 Q4H PRN PRN NAUSEA/VOMITING Ondansetron HCl 4 mg 08/05/19 14:38 Zofran 4 Mg/2 Ml Vial IV 09/04/19 14:37 Q4H PRN PRN NAUSEA/VOMITING Senna/Docusate Sodium 2 udtab 08/05/19 14:37 Senokot-S Tablet PO 09/04/19 14:36 BID PRN PRN CONSTIPATION Senna/Docusate Sodium 2 udtab 08/05/19 14:38 Senokot-S Tablet PO 09/04/19 14:37 BID PRN PRN CONSTIPATION Discontinued Medications Generic Name Dose Route Start Last Admin Trade Name Jaxonq PRN Reason Stop Dose Admin Aspirin 324 mg 08/05/19 12:11 08/05/19 12:15 Baby Aspirin 81 Mg Chew PO 08/05/19 12:12 324 mg STAT ONE Administration Sodium Chloride 1,000 mls @ 999 mls/hr 08/05/19 12:11 08/05/19 12:16 Sodium Chloride 0.9% 1000 Ml IV 08/05/19 13:11 999 mls/hr .Q1H1M STA Administration Lab/Rad Data: Laboratory Result Diagrams 08/05/19 12:15 08/05/19 12:15 Laboratory Results 08/05/19 08/05/19 08/05/19 Range/Units 12:15 12:15 12:15 WBC (4.0-10.5) K/mm3 RBC (4.1-5.4) M/mm3 Hgb (12.0-16.0) gm/dl Hct (35-47) % MCV (78-100) fl MCH (26-32) pg MCHC (32-36) g/dl RDW (11.5-14.0) % Plt Count (150-450) K/mm3 MPV (7.5-11.0) fl Gran % (36.0-66.0) % Eos # (Auto) (0-0.5) Absolute Lymphs (auto) (1.0-4.6) Absolute Monos (auto) (0.0-1.3) Lymphocytes % (24.0-44.0) % Monocytes % (0.0-12.0) % Eosinophils % (0.00-5.0) % Basophils % (0.0-0.4) % Absolute Granulocytes (1.4-6.9) Basophils # (0-0.4) D-Dimer 717 H* (215-500) ng/mL Sodium 140 (137-145) mmol/L Potassium 3.9 (3.5-5.1) mmol/L Chloride 106 (98-107) mmol/L Carbon Dioxide 26 (22-30) mmol/L Anion Gap 12.6 (5-15) MEQ/L BUN 18 H (7-17) mg/dL Creatinine 0.77 (0.52-1.04) mg/dL Estimated GFR > 60.0 ML/MIN Glucose 92 (74-106) mg/dL Calcium 9.9 (8.4-10.2) mg/dL Total Bilirubin 0.40 (0.2-1.3) mg/dL AST 23 (14-36) U/L ALT 19 (0-35) U/L Alkaline Phosphatase 87 (38-126) U/L Creatine Kinase 54 (30-135) U/L Troponin I < 0.012 (0.000-0.034) ng/mL NT-Pro-B Natriuret Pep 31.0 (0-900) pg/mL Serum Total Protein 7.4 (6.3-8.2) g/dL Albumin 4.1 (3.5-5.0) g/dL 08/05/19 Range/Units 12:15 WBC 6.5 (4.0-10.5) K/mm3 RBC 4.72 (4.1-5.4) M/mm3 Hgb 14.5 (12.0-16.0) gm/dl Hct 43.4 (35-47) % MCV 91.9 (78-100) fl MCH 30.7 (26-32) pg MCHC 33.4 (32-36) g/dl RDW 14.1 H (11.5-14.0) % Plt Count 293 (150-450) K/mm3 MPV 10.1 (7.5-11.0) fl Gran % 56.6 (36.0-66.0) % Eos # (Auto) 0.27 (0-0.5) Absolute Lymphs (auto) 1.92 (1.0-4.6) Absolute Monos (auto) 0.58 (0.0-1.3) Lymphocytes % 29.5 (24.0-44.0) % Monocytes % 8.9 (0.0-12.0) % Eosinophils % 4.2 (0.00-5.0) % Basophils % 0.8 (0.0-0.4) % Absolute Granulocytes 3.68 (1.4-6.9) Basophils # 0.05 (0-0.4) D-Dimer (215-500) ng/mL Sodium (137-145) mmol/L Potassium (3.5-5.1) mmol/L Chloride (98-107) mmol/L Carbon Dioxide (22-30) mmol/L Anion Gap (5-15) MEQ/L BUN (7-17) mg/dL Creatinine (0.52-1.04) mg/dL Estimated GFR ML/MIN Glucose (74-106) mg/dL Calcium (8.4-10.2) mg/dL Total Bilirubin (0.2-1.3) mg/dL AST (14-36) U/L ALT (0-35) U/L Alkaline Phosphatase (38-126) U/L Creatine Kinase (30-135) U/L Troponin I (0.000-0.034) ng/mL NT-Pro-B Natriuret Pep (0-900) pg/mL Serum Total Protein (6.3-8.2) g/dL Albumin (3.5-5.0) g/dL - Progress Progress: improved Progress Note: 08/05/19 13:00 Differential diagnosis includes TIA, stroke, head bleed, STEMI, pulmonary embolism, pneumonia, electrolyte abnormality - We'll obtain basic labs, fluids, EKG, troponin, chest x-ray - EKG shows no ST changes - my read. See full read below. - O2 saturations consistently greater than 95%. - CXR shows no pneumonia, pneumothorax - my read 08/05/19 14:44 Patient's d-dimer did come back elevated. Therefore, we will obtain a CT scan for pulmonary embolism. This came back negative. Head CT was also negative. Patient will need to be admitted for shortness of breath, possible TIA. I will place an order for an echocardiogram at this point in time. We did discuss over the phone, Dr. Eugenia Mendez. She will admit the patient to her service. Discussed with : Lucas Counseled pt/family regarding: lab results, diagnosis, rad results - Departure Departure Disposition: Observation, Release to OR/[facility] Clinical Impression: Shortness of breath, Dizziness, Chest pain Condition: Good Critical Care Time: No Referrals: DWIGHT MARTÍNEZ [Primary Care Provider] -
[2019-08-05] MEDS ORDERED: BABY ASPIRIN 81 MG CHEW PO ONE (12:11)
[2019-08-05] MEDS ORDERED: Sodium Chloride 0.9% 1000 ML 1,000 ML IV STA (12:11)
[2019-08-05 12:28] LABS: Absolute Neutrophil Ct (ANC) 3.68 (1.4-6.9); BASOPHIL % 0.8 % (0.0-0.4); Basophil (Absolute #) 0.05 (0-0.4); Eosinophil % 4.2 % (0.00-5.0); Eosinophil (Absolute #) 0.27 (0-0.5); Hematocrit 43.4 % (35-47); Hemoglobin 14.5 gm/dl (12.0-16.0); Lymphocyte (Absolute #) 1.92 (1.0-4.6); Lymphocytes % 29.5 % (24.0-44.0); Mean Cell Volume 91.9 fl (78-100); Mean Corpuscular Hemoglobin 30.7 pg (26-32); Mean Corpuscular Hgb Concent. 33.4 g/dl (32-36); Mean Platelet Volume 10.1 fl (7.5-11.0); Monocyte (Absolute #) 0.58 (0.0-1.3); Monocytes % 8.9 % (0.0-12.0); Neutrophil % 56.6 % (36.0-66.0); Platelet Count 293 K/mm3 (150-450); Red Blood Count 4.72 M/mm3 (4.1-5.4); Red Cell Distribution Width 14.1 % (11.5-14.0); White Blood Count 6.5 K/mm3 (4.0-10.5)
--- NOTE | 2019-08-05 12:42 | XRAY ---
Exam: CT of the head without IV contrast from 08/05/2019. CTDI: 53.92 mGy Comparison: CT of the head without IV contrast from 05/08/2017. Indication: 74-year-old female with possible stroke, dizziness. Technique: Non-IV contrast axial images were obtained through the brain. Reconstructed coronal and sagittal images were created and reviewed. Findings: The ventricles appear within normal limits of size. No focal mass effect or midline shift is seen. The andrews matter-white matter junctions are adequately preserved. No acute intracranial bleed or abnormal extra-axial fluid collection is seen. No low attenuation territorial infarct is seen within the cerebrum or cerebellum. Mild age-appropriate cortical sulci prominence is seen representing no change. The calvarium of the skull appears intact. The visualized paranasal sinuses are clear. The mastoid air cells are clear without effusion. The middle ear cavities appear grossly unremarkable. No significant abnormality of the orbits is seen. Impression: 1. No acute intracranial bleed or other acute intracranial process is seen. The CT appearance is unchanged from the prior study dated 05/08/2017.
[2019-08-05 12:50] LABS: ALBUMIN 4.1 g/dL (3.5-5.0); ALKALINE PHOSPHATASE 87 U/L (38-126); ANION GAP 12.6 MEQ/L (5-15); BLOOD UREA NITROGEN 18 mg/dL (7-17); CHLORIDE 106 mmol/L (98-107); CK-Creatinine Phosphokinase 54 U/L (30-135); Calcium 9.9 mg/dL (8.4-10.2); Carbon Dioxide 26 mmol/L (22-30); Creatinine 1 0.77 mg/dL (0.52-1.04); Glucose 92 mg/dL (74-106); Potassium 3.9 mmol/L (3.5-5.1); SGOT/AST 23 U/L (14-36); SGPT/ALT 19 U/L (0-35); SODIUM 140 mmol/L (137-145); Total Protein 7.4 g/dL (6.3-8.2)
--- NOTE | 2019-08-05 12:50 | XRAY ---
Exam: Two-view chest from 08/05/2019. Comparison: AP 80 semi-upright portable chest film from 05/22/2019. Indication: 74-year-old female with chest pain, dizziness, history of prior heart attack. Findings: Upright PA and lateral chest films are submitted for evaluation. The lung smith are well inflated. The heart size is normal. A calcified, mildly tortuous atherosclerotic thoracic aorta is seen representing no change. Some small granulomatous calcifications are seen in the pericarinal region. The remainder of the tamie and mediastinal structures appears unremarkable. Minor linear scarring/atelectasis is seen at the posterior left lung base. A couple small calcified granulomas are seen at the left lung base. No air space infiltrates, vascular congestion, pneumothorax, or pleural fluid is seen. There is evidence of prior cholecystectomy. Mild mid thoracic dextroscoliosis is seen. There is also mild upper lumbar rotary levoscoliosis centered at L1. Impression: 1. No acute cardiopulmonary disease is seen. 2. Mild chronic linear scarring is/atelectasis at the posterior left lung base and evidence of mild old healed granulomatous disease are seen.
--- NOTE | 2019-08-05 14:09 | XRAY ---
Exam: CT of the chest with IV contrast per PE protocol from 08/05/2019. Total DLP: 551.47 mGy-cm. Comparison: CT of the chest with IV contrast from 09/04/2018. Indication: 74-year-old female with possible pulmonary embolism. Elevated d-dimer of 717. Chest pain, shortness of breath, history of prior heart attack. The patient also has a history of prior cholecystectomy, hysterectomy, and tubal ligation. Technique: Post-IV contrast axial images were obtained through the chest during and following 80 cc IV injection of Isovue-370 contrast material, per PE protocol. Reconstructed coronal and sagittal images were created and reviewed. Findings: No filling defects are seen within the pulmonary arteries to suggest a pulmonary embolus. I see no evidence of thoracic aortic aneurysm or dissection. No abnormal mediastinal or perihilar lymphadenopathy is seen. Some tiny central granulomatous calcifications are seen. No air space infiltrates, pneumothorax, or pleural effusion is seen. Chronic linear scarring is seen at the posterior left lung base representing no change. There also appears to be some minimal focal atelectasis/scarring at the anterior medial right midlung field representing no change. A calcified granuloma is seen at the left lung base. On axial image #43 of series 3, there is a 3.2 mm soft tissue lung nodule at the lateral right midlung field which is unchanged from 09/04/2018. This likely represents a small granuloma. No new suspicious soft tissue lung nodules are seen. The upper abdomen reveals surgical clips consistent with prior cholecystectomy. Some pneumobilia is seen within the right upper quadrant representing no change. I again note some some scattered calcified granulomas within both the liver and spleen. There may be some mild fatty infiltration within the liver. The adrenal glands appear unremarkable. The skeleton reveals a mild lower dorsal kyphosis and mild mid and lower thoracic spondylosis. No acute fracture or aggressive bone lesion is seen. Impression: 1. No evidence of pulmonary embolus is seen. Nor do I detect evidence of thoracic aortic aneurysm or dissection. 2. Old healed granulomatous disease. 3. 3.2 mm noncalcified lung nodule within lateral right midlung field remains unchanged from 09/04/2018. This likely represents a tiny granuloma. 4. Minimal bilateral linear scarring is again seen.
[2019-08-05] MEDS ORDERED: Senokot-S Tablet PO PRN ×2 (14:37→14:38)
[2019-08-05] MEDS ORDERED: TYLENOL 325 MG PO PRN ×2 (14:37→14:38)
[2019-08-05] MEDS ORDERED: MILK OF MAGNESIA 30 ML PO PRN ×2 (14:37→14:38)
[2019-08-05] MEDS ORDERED: Zofran 4 MG/2 ML VIAL IV PRN ×2 (14:37→14:38)
[2019-08-05] MEDS ORDERED: MAALOX ES 30 ML UNIT DOSE PO PRN ×2 (14:37→14:38)
[2019-08-05] MEDS ORDERED: Sodium Chloride 0.9% 10 ML FLUSH Syringe IV PRN (17:00)
[2019-08-05] MEDS ORDERED: NORCO 5/325 MG PO PRN (17:00)
[2019-08-05] MEDS ORDERED: MEDICATION INTERVENTION MC SCH (17:15)
[2019-08-05] MEDS: Sodium Chloride 0.9% 10 ML FLUSH Syringe IV SCH (21:05)
[2019-08-05] MEDS ORDERED: Protonix 20MG Tablet PO SCH (22:00)
[2019-08-06 02:04] LABS: Risk Ratio 3.9
[2019-08-06] MEDS: Sodium Chloride 0.9% 10 ML FLUSH Syringe IV SCH (05:31)
[2019-08-06] MEDS ORDERED: SYNTHROID 50 MCG PO SCH (10:00)
[2019-08-06] MEDS ORDERED: SYNTHROID 75 MCG PO SCH (10:00)
[2019-08-06] MEDS ORDERED: ECOTRIN 81 MG PO SCH (10:00)
[2019-08-06] MEDS ORDERED: PLAVIX 75 MG Tablet PO SCH (10:00)
[2019-08-06] MEDS ORDERED: NON-FORMULARY ITEM (Naloxegol Oxalate [Movantik] 25 MG) PO SCH (10:00)
[2019-08-06 11:32] VITALS: BP 142/65; PULSE 68; O2SAT 95
--- NOTE | 2019-08-06 11:33 | PCM.SSS ---
History of Present Illness - Chief Complaint Chief Complaint: chest pain History of Present Illness: is a 74 year old female with Hx CAD and previous ME followed by Senior Nurse Manager Dr Eastman. Patient was at her PCPs office yesterday, Dr Diana Martínez, c/o chest pain and shortness of breath and was sent to ER. D-dimer was elevated,Troponin was NOT elevated. CT chest neg for PE. SHe was admitted to Med surg OBS for serial troponins. - Review of Systems Constitutional: No Symptoms Eyes: No Symptoms Ears, Nose, & Throat: Sinus Drainage (chronic hx allergy shots in [place]), Other (had COVID test negativ about a week ago due to sore throat at that time.) Respiratory: Short Of Breath (on on admission but none today) Cardiac: Chest Pain (oon admission but not now) Abdominal/Gastrointestinal: Constipation (chronic is on pain meds,no abdominal pain,no N/V) Genitourinary Symptoms: No Symptoms Musculoskeletal: Back Pain, Other (chronic bilat foot pain flat feet/neuropathy- followed by pain management) Neurological: Other (no focal weakness) Psychological: No Symptoms Endocrine: Other (hypothyroid just had lab ) Hematologic/Lymphatic: Other (is on Plavix) Immunological/Allergic: Other (allergies ,allergy shots in the past) Medications & Allergies Home Medications: Home Medication List Estrogens,Conjugated [Premarin] 0.625 mg PO DAILY 10/04/11 [History Confirmed 08/05/19] Levothyroxine Sodium [Synthroid] 75 mcg PO DAILY 06/26/16 [History Confirmed 08/05/19] Aspirin 81 mg PO DAILY 05/09/17 [History Confirmed 08/05/19] Ergocalciferol (Vitamin D2) [Vitamin D] 50,000 cap PO WEEKLY 05/09/17 [History Confirmed 08/05/19] Clopidogrel Bisulfate 75 mg [PLAVIX 75 MG Tablet] 75 mg PO DAILY 05/22/19 [History Confirmed 08/05/19] Hydrocodone/Acetaminophen [Hydrocodone-Acetamin 5-325 mg] 1 each PO BID PRN 05/22/19 [History Confirmed 08/05/19] Pantoprazole 20 mg [Protonix 20MG Tablet] 20 mg PO HS 05/22/19 [History Confirmed 08/05/19] Naloxegol Oxalate [Movantik] 25 mg PO DAILY 08/05/19 [History Confirmed 08/05/19] Allergies/Adverse Reactions: Allergies Allergy/AdvReac Type Severity Reaction Status Date / Time azelastine HCl [From Astelin] Allergy Mild Verified 08/05/19 16:50 clarithromycin [From Biaxin] Allergy Mild Verified 08/05/19 16:50 valdecoxib [From Bextra] Allergy Mild Verified 08/05/19 16:50 moxifloxacin Allergy Verified 08/05/19 16:50 - Past Medical History Past Medical History: Yes Neurological History: Peripheral Neuropathy ENT History: No Pertinent History, Other (chrinoc sinusitis/allergies) Cardiac History: Angina, High Cholesterol (intolerance to statins), Myocardial Infarction (ME) Respiratory History: No Pertinent History Endocrine Medical History: Hypoglycemia Musculoskelatal History: Degenerative Disk Disease, Osteoarthritis GI Medical History: Gallbladder Disease, Pancreatitis History: No Pertinent History Pyscho-Social History: No Pertinent History Reproductive Disorders: No Pertinent History Comment: Thyroid problems, heart blockage - Female History Are you now?: No - Past Surgical History Past Surgical History: No Neuro Surgical History: No Pertinent History Cardiac History: No Pertinent History Respiratory Surgery: No Pertinent History GI Surgical History: Cholecystectomy Genitourinary Surgical Hx: No Pertinent History Musculskeletal Surgical Hx: No Pertinent History Female Surgical History: No Pertinent History Other Surgical History: ERCP - Social History Smoking Status: Never smoker Exposure to second hand smoke: No Alcohol: None Drug Use: none - Physical Exam Vital Signs: Vital Signs - 24 hr Temp Pulse Resp BP Pulse Ox 08/06/19 07:14 97.6 F 53 L 18 103/50 94 L 08/06/19 04:18 97.5 F 60 17 110/55 95 08/05/19 23:32 98.2 F 64 16 127/59 94 L 08/05/19 20:00 98.1 F 67 18 116/65 96 08/05/19 19:54 98.1 F 67 18 116/65 96 08/05/19 16:45 97.5 F 57 L 17 162/69 96 08/05/19 16:30 96 08/05/19 16:27 97.5 F 56 L 17 162/68 96 08/05/19 14:57 96 08/05/19 14:25 56 L 18 149/54 97 08/05/19 13:34 58 L 19 123/72 97 08/05/19 12:55 57 L 18 123/72 97 08/05/19 11:56 98.1 F 71 17 150/82 96 General Appearance: no apparent distress Neurologic Exam: alert, 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, cooperative, normal mood/affect Eye Exam: eyes nml inspection Ears, Nose, Throat Exam: other (PND,TMS dull/scarred) Neck Exam: normal inspection Respiratory Exam: normal breath sounds, other (no wheezing,ronchi or rales but diminished BS bases) Cardiovascular Exam: regular rate/rhythm (no murmur) Gastrointestinal/Abdomen Exam: soft, normal bowel sounds (nontender) Pelvic Exam: not done Rectal Exam: not done Back Exam: normal inspection Extremity Exam: other (neg homans,no pitting edema, bilat foot deformity due to flat feet) Results - Labs Lab/Micro Results: Lab Results-Last 24 Hours 08/05/19 08/05/19 08/05/19 Range/Units 12:15 12:15 12:15 WBC 6.5 (4.0-10.5) K/mm3 RBC 4.72 (4.1-5.4) M/mm3 Hgb 14.5 (12.0-16.0) gm/dl Hct 43.4 (35-47) % MCV 91.9 (78-100) fl MCH 30.7 (26-32) pg MCHC 33.4 (32-36) g/dl RDW 14.1 H (11.5-14.0) % Plt Count 293 (150-450) K/mm3 MPV 10.1 (7.5-11.0) fl Gran % 56.6 (36.0-66.0) % Eos # (Auto) 0.27 (0-0.5) Absolute Lymphs (auto) 1.92 (1.0-4.6) Absolute Monos (auto) 0.58 (0.0-1.3) Lymphocytes % 29.5 (24.0-44.0) % Monocytes % 8.9 (0.0-12.0) % Eosinophils % 4.2 (0.00-5.0) % Basophils % 0.8 (0.0-0.4) % Absolute Granulocytes 3.68 (1.4-6.9) Basophils # 0.05 (0-0.4) D-Dimer 717 H* (215-500) ng/mL Sodium 140 (137-145) mmol/L Potassium 3.9 (3.5-5.1) mmol/L Chloride 106 (98-107) mmol/L Carbon Dioxide 26 (22-30) mmol/L Anion Gap 12.6 (5-15) MEQ/L BUN 18 H (7-17) mg/dL Creatinine 0.77 (0.52-1.04) mg/dL Estimated GFR > 60.0 ML/MIN Glucose 92 (74-106) mg/dL Calcium 9.9 (8.4-10.2) mg/dL Total Bilirubin 0.40 (0.2-1.3) mg/dL AST 23 (14-36) U/L ALT 19 (0-35) U/L Alkaline Phosphatase 87 (38-126) U/L Creatine Kinase 54 (30-135) U/L Troponin I (0.000-0.034) ng/mL NT-Pro-B Natriuret Pep 31.0 (0-900) pg/mL Serum Total Protein 7.4 (6.3-8.2) g/dL Albumin 4.1 (3.5-5.0) g/dL Triglycerides (30-150) mg/dL Cholesterol (50-200) mg/dL LDL Cholesterol (30-100) mg/dL HDL Cholesterol (40-60) mg/dL Heart Disease Risk Ratio 08/05/19 08/05/19 08/05/19 Range/Units 12:15 15:45 18:30 WBC (4.0-10.5) K/mm3 RBC (4.1-5.4) M/mm3 Hgb (12.0-16.0) gm/dl Hct (35-47) % MCV (78-100) fl MCH (26-32) pg MCHC (32-36) g/dl RDW (11.5-14.0) % Plt Count (150-450) K/mm3 MPV (7.5-11.0) fl Gran % (36.0-66.0) % Eos # (Auto) (0-0.5) Absolute Lymphs (auto) (1.0-4.6) Absolute Monos (auto) (0.0-1.3) Lymphocytes % (24.0-44.0) % Monocytes % (0.0-12.0) % Eosinophils % (0.00-5.0) % Basophils % (0.0-0.4) % Absolute Granulocytes (1.4-6.9) Basophils # (0-0.4) D-Dimer (215-500) ng/mL Sodium (137-145) mmol/L Potassium (3.5-5.1) mmol/L Chloride (98-107) mmol/L Carbon Dioxide (22-30) mmol/L Anion Gap (5-15) MEQ/L BUN (7-17) mg/dL Creatinine (0.52-1.04) mg/dL Estimated GFR ML/MIN Glucose (74-106) mg/dL Calcium (8.4-10.2) mg/dL Total Bilirubin (0.2-1.3) mg/dL AST (14-36) U/L ALT (0-35) U/L Alkaline Phosphatase (38-126) U/L Creatine Kinase (30-135) U/L Troponin I < 0.012 < 0.012 < 0.012 (0.000-0.034) ng/mL NT-Pro-B Natriuret Pep (0-900) pg/mL Serum Total Protein (6.3-8.2) g/dL Albumin (3.5-5.0) g/dL Triglycerides (30-150) mg/dL Cholesterol (50-200) mg/dL LDL Cholesterol (30-100) mg/dL HDL Cholesterol (40-60) mg/dL Heart Disease Risk Ratio 08/05/19 08/06/19 08/06/19 Range/Units 21:25 01:30 01:30 WBC (4.0-10.5) K/mm3 RBC (4.1-5.4) M/mm3 Hgb (12.0-16.0) gm/dl Hct (35-47) % MCV (78-100) fl MCH (26-32) pg MCHC (32-36) g/dl RDW (11.5-14.0) % Plt Count (150-450) K/mm3 MPV (7.5-11.0) fl Gran % (36.0-66.0) % Eos # (Auto) (0-0.5) Absolute Lymphs (auto) (1.0-4.6) Absolute Monos (auto) (0.0-1.3) Lymphocytes % (24.0-44.0) % Monocytes % (0.0-12.0) % Eosinophils % (0.00-5.0) % Basophils % (0.0-0.4) % Absolute Granulocytes (1.4-6.9) Basophils # (0-0.4) D-Dimer (215-500) ng/mL Sodium (137-145) mmol/L Potassium (3.5-5.1) mmol/L Chloride (98-107) mmol/L Carbon Dioxide (22-30) mmol/L Anion Gap (5-15) MEQ/L BUN (7-17) mg/dL Creatinine (0.52-1.04) mg/dL Estimated GFR ML/MIN Glucose (74-106) mg/dL Calcium (8.4-10.2) mg/dL Total Bilirubin (0.2-1.3) mg/dL AST (14-36) U/L ALT (0-35) U/L Alkaline Phosphatase (38-126) U/L Creatine Kinase (30-135) U/L Troponin I < 0.012 < 0.012 (0.000-0.034) ng/mL NT-Pro-B Natriuret Pep (0-900) pg/mL Serum Total Protein (6.3-8.2) g/dL Albumin (3.5-5.0) g/dL Triglycerides 163 H (30-150) mg/dL Cholesterol 255 H (50-200) mg/dL LDL Cholesterol 163 H (30-100) mg/dL HDL Cholesterol 66 H (40-60) mg/dL Heart Disease Risk Ratio 3.9 - Radiology Impressions Radiology Exams & Impressions: Radiology Procedures Category Date Time Status CHEST 2 VIEWS (PA AND LAT) Stat Exams 08/05/19 12:11 Completed CHEST WITH CONTRAST [CT] Stat Exams 08/05/19 12:50 Completed ECHO W/2D AND DOPPLER [US] Routine Exams 08/05/19 15:20 Taken HEAD WITHOUT CONTRAST [CT] Stat Exams 08/05/19 12:12 Completed - Other Procedures and Tests Respiratory Therapy 08/06/19 05:00 EKG ONCE 08/07/19 05:00 EKG ONCE 08/08/19 05:00 EKG ONCE Assessment/Plan (1) Chest pain Status: Acute Qualifiers: Chest pain type: other chest pain Qualified Code(s): R07.89 - Other chest pain; R07.8 - Other chest pain Assessment & Plan: Hx CAD ,serial troponins were not elevated ,patient discharged home to follow up with her Senior Nurse Manager Code(s): R07.9 - CHEST PAIN, UNSPECIFIED (2) Hx of myocardial infarction Status: Resolved Assessment & Plan: followed by Dr Eastman Code(s): I25.2 - OLD MYOCARDIAL INFARCTION (3) Elevated d-dimer Status: Acute Assessment & Plan: Chest CT was neg for PE Code(s): R79.89 - OTHER SPECIFIED ABNORMAL FINDINGS OF BLOOD CHEMISTRY Hospital Summary - Hospital Course Hospital Course: Patient was admitted from ER with chest pain R/O ME. She has had an ME in the past and follows with Dr Eastman. Ddimer was elevated and CT Chest was neg for PE. Serial Troponins were not elevated .Patient was feeling well the following morning and asking to go home. - Vitals & Intake/Output Vital Signs: Vital Signs Temperature 97.6 F 08/06/19 07:14 Pulse Rate 53 L 08/06/19 07:14 Respiratory Rate 18 08/06/19 07:14 Blood Pressure 103/50 08/06/19 07:14 O2 Sat by Pulse Oximetry 94 L 08/06/19 07:14 Intake & Output: Intake & Output 08/03/19 08/04/19 08/05/19 08/06/19 11:59 11:59 11:59 11:59 Intake Total 1800 Output Total 2300 Balance -500 Weight 85.82 kg 84.1 kg - Lab Result Diagrams: 08/05/19 12:15 08/05/19 12:15 Lab Results-Last 24 Hrs: Lab Results-Last 24 Hours 08/05/19 08/05/19 08/05/19 Range/Units 12:15 12:15 12:15 WBC 6.5 (4.0-10.5) K/mm3 RBC 4.72 (4.1-5.4) M/mm3 Hgb 14.5 (12.0-16.0) gm/dl Hct 43.4 (35-47) % MCV 91.9 (78-100) fl MCH 30.7 (26-32) pg MCHC 33.4 (32-36) g/dl RDW 14.1 H (11.5-14.0) % Plt Count 293 (150-450) K/mm3 MPV 10.1 (7.5-11.0) fl Gran % 56.6 (36.0-66.0) % Eos # (Auto) 0.27 (0-0.5) Absolute Lymphs (auto) 1.92 (1.0-4.6) Absolute Monos (auto) 0.58 (0.0-1.3) Lymphocytes % 29.5 (24.0-44.0) % Monocytes % 8.9 (0.0-12.0) % Eosinophils % 4.2 (0.00-5.0) % Basophils % 0.8 (0.0-0.4) % Absolute Granulocytes 3.68 (1.4-6.9) Basophils # 0.05 (0-0.4) D-Dimer 717 H* (215-500) ng/mL Sodium 140 (137-145) mmol/L Potassium 3.9 (3.5-5.1) mmol/L Chloride 106 (98-107) mmol/L Carbon Dioxide 26 (22-30) mmol/L Anion Gap 12.6 (5-15) MEQ/L BUN 18 H (7-17) mg/dL Creatinine 0.77 (0.52-1.04) mg/dL Estimated GFR > 60.0 ML/MIN Glucose 92 (74-106) mg/dL Calcium 9.9 (8.4-10.2) mg/dL Total Bilirubin 0.40 (0.2-1.3) mg/dL AST 23 (14-36) U/L ALT 19 (0-35) U/L Alkaline Phosphatase 87 (38-126) U/L Creatine Kinase 54 (30-135) U/L Troponin I (0.000-0.034) ng/mL NT-Pro-B Natriuret Pep 31.0 (0-900) pg/mL Serum Total Protein 7.4 (6.3-8.2) g/dL Albumin 4.1 (3.5-5.0) g/dL Triglycerides (30-150) mg/dL Cholesterol (50-200) mg/dL LDL Cholesterol (30-100) mg/dL HDL Cholesterol (40-60) mg/dL Heart Disease Risk Ratio 08/05/19 08/05/19 08/05/19 Range/Units 12:15 15:45 18:30 WBC (4.0-10.5) K/mm3 RBC (4.1-5.4) M/mm3 Hgb (12.0-16.0) gm/dl Hct (35-47) % MCV (78-100) fl MCH (26-32) pg MCHC (32-36) g/dl RDW (11.5-14.0) % Plt Count (150-450) K/mm3 MPV (7.5-11.0) fl Gran % (36.0-66.0) % Eos # (Auto) (0-0.5) Absolute Lymphs (auto) (1.0-4.6) Absolute Monos (auto) (0.0-1.3) Lymphocytes % (24.0-44.0) % Monocytes % (0.0-12.0) % Eosinophils % (0.00-5.0) % Basophils % (0.0-0.4) % Absolute Granulocytes (1.4-6.9) Basophils # (0-0.4) D-Dimer (215-500) ng/mL Sodium (137-145) mmol/L Potassium (3.5-5.1) mmol/L Chloride (98-107) mmol/L Carbon Dioxide (22-30) mmol/L Anion Gap (5-15) MEQ/L BUN (7-17) mg/dL Creatinine (0.52-1.04) mg/dL Estimated GFR ML/MIN Glucose (74-106) mg/dL Calcium (8.4-10.2) mg/dL Total Bilirubin (0.2-1.3) mg/dL AST (14-36) U/L ALT (0-35) U/L Alkaline Phosphatase (38-126) U/L Creatine Kinase (30-135) U/L Troponin I < 0.012 < 0.012 < 0.012 (0.000-0.034) ng/mL NT-Pro-B Natriuret Pep (0-900) pg/mL Serum Total Protein (6.3-8.2) g/dL Albumin (3.5-5.0) g/dL Triglycerides (30-150) mg/dL Cholesterol (50-200) mg/dL LDL Cholesterol (30-100) mg/dL HDL Cholesterol (40-60) mg/dL Heart Disease Risk Ratio 08/05/19 08/06/19 08/06/19 Range/Units 21:25 01:30 01:30 WBC (4.0-10.5) K/mm3 RBC (4.1-5.4) M/mm3 Hgb (12.0-16.0) gm/dl Hct (35-47) % MCV (78-100) fl MCH (26-32) pg MCHC (32-36) g/dl RDW (11.5-14.0) % Plt Count (150-450) K/mm3 MPV (7.5-11.0) fl Gran % (36.0-66.0) % Eos # (Auto) (0-0.5) Absolute Lymphs (auto) (1.0-4.6) Absolute Monos (auto) (0.0-1.3) Lymphocytes % (24.0-44.0) % Monocytes % (0.0-12.0) % Eosinophils % (0.00-5.0) % Basophils % (0.0-0.4) % Absolute Granulocytes (1.4-6.9) Basophils # (0-0.4) D-Dimer (215-500) ng/mL Sodium (137-145) mmol/L Potassium (3.5-5.1) mmol/L Chloride (98-107) mmol/L Carbon Dioxide (22-30) mmol/L Anion Gap (5-15) MEQ/L BUN (7-17) mg/dL Creatinine (0.52-1.04) mg/dL Estimated GFR ML/MIN Glucose (74-106) mg/dL Calcium (8.4-10.2) mg/dL Total Bilirubin (0.2-1.3) mg/dL AST (14-36) U/L ALT (0-35) U/L Alkaline Phosphatase (38-126) U/L Creatine Kinase (30-135) U/L Troponin I < 0.012 < 0.012 (0.000-0.034) ng/mL NT-Pro-B Natriuret Pep (0-900) pg/mL Serum Total Protein (6.3-8.2) g/dL Albumin (3.5-5.0) g/dL Triglycerides 163 H (30-150) mg/dL Cholesterol 255 H (50-200) mg/dL LDL Cholesterol 163 H (30-100) mg/dL HDL Cholesterol 66 H (40-60) mg/dL Heart Disease Risk Ratio 3.9 - Radiology Exams Ordered Rad Exams-Entire Visit: Radiology Procedures Category Date Time Status CHEST 2 VIEWS (PA AND LAT) Stat Exams 08/05/19 12:11 Completed CHEST WITH CONTRAST [CT] Stat Exams 08/05/19 12:50 Completed ECHO W/2D AND DOPPLER [US] Routine Exams 08/05/19 15:20 Taken HEAD WITHOUT CONTRAST [CT] Stat Exams 08/05/19 12:12 Completed - Procedures and Test Procedures and Tests throughout Hospitalization: Therapy Orders & Screens 08/05/19 20:00 EKG ROUTINE Comment: Diagnosis: chest pain 08/06/19 05:00 EKG ONCE Comment: Diagnosis: Acute respiratory distress 08/07/19 05:00 EKG ONCE Comment: Diagnosis: Acute respiratory distress 08/08/19 05:00 EKG ONCE Comment: Diagnosis: Acute respiratory distress - Discharge Disposition: Home, Self-Care Condition: Good Prescriptions: Continue Estrogens,Conjugated [Premarin] 0.625 mg PO DAILY Levothyroxine Sodium [Synthroid] 75 mcg PO DAILY Aspirin 81 mg PO DAILY Ergocalciferol (Vitamin D2) [Vitamin D] 50,000 cap PO WEEKLY Pantoprazole 20 mg [Protonix 20MG Tablet] 20 mg PO HS Hydrocodone/Acetaminophen [Hydrocodone-Acetamin 5-325 mg] 1 each PO BID PRN Clopidogrel Bisulfate 75 mg [PLAVIX 75 MG Tablet] 75 mg PO DAILY Naloxegol Oxalate [Movantik] 25 mg PO DAILY Instructions: Vertigo (a Type of Dizziness) (DC), Shortness of Breath (Dyspnea) (DC), Hypothyroidism (Underactive Thyroid) (DC) Follow up with: MARTIN EASTMAN [CONSULTING PHYSICIAN] - 1 Week DWIGHT MARTÍNEZ [ACTIVE STAFF] - 1 Week Forms: Discharge Instructions
--- NOTE | 2019-08-06 12:24 | PCM.DCORD ---
- Discharge Disposition: Home, Self-Care Condition: Good Prescriptions: Continue Estrogens,Conjugated [Premarin] 0.625 mg PO DAILY Levothyroxine Sodium [Synthroid] 75 mcg PO DAILY Aspirin 81 mg PO DAILY Ergocalciferol (Vitamin D2) [Vitamin D] 50,000 cap PO WEEKLY Pantoprazole 20 mg [Protonix 20MG Tablet] 20 mg PO HS Hydrocodone/Acetaminophen [Hydrocodone-Acetamin 5-325 mg] 1 each PO BID PRN Clopidogrel Bisulfate 75 mg [PLAVIX 75 MG Tablet] 75 mg PO DAILY Naloxegol Oxalate [Movantik] 25 mg PO DAILY Instructions: Vertigo (a Type of Dizziness) (DC), Shortness of Breath (Dyspnea ) (DC) Follow up with: DWIGHT MARTÍNEZ [ACTIVE STAFF] - 1 Week MARTIN EASTMAN [CONSULTING PHYSICIAN] - 1 Week Forms: Discharge Instructions
[2019-08-10] MEDS ORDERED: VITAMIN D2 PO SCH (10:00)
--- NOTE | 2019-08-15 13:53 | ECHO ---
Transthoracic echocardiographic examination and color Doppler was done on 08/05/2019. INDICATION: Shortness of breath, chest pain. IMPRESSION: 1) NO REGIONAL WALL MOTION ABNORMALITY. ESTIMATED GLOBAL LEFT VENTRICULAR EJECTION FRACTION OF AROUND 50%. 2) TRACE MITRAL REGURGITATION. 3) TRACE TRICUSPID REGURGITATION WITH RIGHT VENTRICULAR SYSTOLIC PRESSURE OF 28 MM OF MERCURY. 4) LEFT VENTRICULAR HYPERTROPHY. 5) LEFT VENTRICULAR DIASTOLIC DYSFUNCTION. The left ventricle is visualized and demonstrated adequate motion of all the segments. Estimated global left ventricular ejection fraction around 50%. There is mild left ventricular hypertrophy. The mitral valve is seen and this opens adequately. There is trace mitral regurgitation. The tissue Doppler study of the lateral mitral annulus suggests left ventricular diastolic dysfunction. The left atrium is normal. The aortic valve opens adequately. There is no significant gradient across the left ventricular outflow tract. The right side chambers are normal. There is trace tricuspid regurgitation. The right ventricular systolic pressure of 28 mm of Mercury.
== END 2019-08-06 12:50 | disposition home or self-care (01) ==
LOC: ED 11:45 → MED SURG 16:08
PROVIDERS: ADMIT Family Medicine; ATTEND Family Medicine
DX: R07.9 Chest pain, unspecified (principal); R06.02 Shortness of breath; R79.1 Abnormal coagulation profile; M54.9 Dorsalgia, unspecified; E03.9 Hypothyroidism, unspecified; K59.00 Constipation, unspecified; E78.00 Pure hypercholesterolemia, unspecified; G62.9 Polyneuropathy, unspecified; Z79.01 Long term (current) use of anticoagulants; Z79.899 Other long term (current) drug therapy; I25.2 Old myocardial infarction; Z86.79 Personal history of other diseases of the circulatory system
CPT/HCPCS: 36000; 36415; 70450; 71046; 71260; 80053; 80061; 82550; 83721; 83880; 84484; 85025; 85379; 93005; 93041; 93268; 93306; 94760; 96360; 99285; G0378; A9270-GY

== ENCOUNTER 2020-08-08 19:03 | Observation (INO) | payer MEDICARE, OTHER ==
[2020-08-08] MEDS ORDERED: DELTASONE 20 MG PO ONE (19:28)
[2020-08-08] MEDS ORDERED: DELTASONE 20 MG ONE (19:36)
--- NOTE | 2020-08-08 20:43 | ERPHSYRPT ---
- History of Present Illness Time Seen by Provider: 08/08/20 19:30 Source: patient Patient Subjective Stated Complaint: pt states "I got bit by something and my lip started to swell up." Triage Nursing Assessment: pt ambulated into the er; pt is axo x4; c/o insect bite to left upper lip; pt states 2/10 pain to left upper lip; left upper lip is swollen and tight; no redness present; pt states she is unsure of what bit her; pt is hypertensive Physician History: Patient is a 75-year-old female presents to our ED with complaints of swelling to the upper lip on the left side. Patient does not know what triggered her lip to swell and presume that she was bitten by an insect although she did not feel or recall being bit by an insect. Patient admits to having multiple allergies. Patient symptoms started just prior to arrival. Patient states her lip swelling progressively larger to the point where she can barely see her her upper lip on the right side. She denies difficulty swallowing. Patient tolerating oral secretions well. Patient does not have any intraoral lesions. No change in her voice. No shortness of breath. No coughing. No abdominal cramping. Symptoms are constant. Symptoms are moderate in intensity. No specific worsening or improving factors. Patient admits to taking a Benadryl prior to arrival. Timing/Duration: today Severity: moderate Modifying Factors: Improves With: nothing Associated Symptoms: denies symptoms Allergies/Adverse Reactions: azelastine HCl [From Astelin] Allergy (Mild, Verified 08/08/20 19:13) clarithromycin [From Biaxin] Allergy (Mild, Verified 08/08/20 19:13) valdecoxib [From Bextra] Allergy (Mild, Verified 08/08/20 19:13) moxifloxacin Allergy (Verified 08/08/20 19:13) Home Medications: Estrogens,Conjugated [Premarin] 0.625 mg PO DAILY 10/04/11 [History] Levothyroxine Sodium [Synthroid] 75 mcg PO DAILY 06/26/16 [History] Aspirin 81 mg PO DAILY 05/09/17 [History] Ergocalciferol (Vitamin D2) [Vitamin D] 50,000 cap PO WEEKLY 05/09/17 [History] Clopidogrel Bisulfate 75 mg [PLAVIX 75 MG Tablet] 75 mg PO DAILY 05/22/19 [History] Hydrocodone/Acetaminophen [Hydrocodone-Acetamin 5-325 mg] 1 each PO BID PRN 11/02 [History] Pantoprazole 20 mg [Protonix 20MG Tablet] 20 mg PO HS 05/22/19 [History] Naloxegol Oxalate [Movantik] 25 mg PO DAILY 08/05/19 [History] Hx Tetanus, Diphtheria Vaccination/Date Given: Yes Hx Influenza Vaccination/Date Given: Yes Hx Pneumococcal Vaccination/Date Given: Yes Immunizations Up to Date: Yes Travel Risk - International Travel Have you traveled outside of the country in past 3 weeks: No - Coronavirus Screening Are you exhibiting any of the following symptoms?: No Close contact with a COVID-19 positive Pt in past 14-21 Days: No - Vaccine Status Have you recieved a Covid-19 vaccination: Yes [employer]: [employer] - Vaccination Dates Date of 2cond Vaccination (if applicable): 04/16/20 - Review of Systems Constitutional: No Symptoms, No Fever, No Chills Eyes: No Symptoms Ears, Nose, & Throat: No Symptoms Respiratory: No Symptoms, No Cough, No Dyspnea Cardiac: No Symptoms, No Chest Pain, No Edema, No Syncope Abdominal/Gastrointestinal: No Symptoms, No Abdominal Pain, No Nausea, No Vomiting, No Diarrhea Genitourinary Symptoms: No Symptoms, No Dysuria Musculoskeletal: No Symptoms, No Back Pain, No Neck Pain Skin: No Symptoms, No Rash Neurological: No Symptoms, No Dizziness, No Focal Weakness, No Sensory Changes Psychological: No Symptoms Endocrine: No Symptoms Hematologic/Lymphatic: No Symptoms Immunological/Allergic: No Symptoms All Other Systems: Reviewed and Negative - Past Medical History Pertinent Past Medical History: Yes Neurological History: Peripheral Neuropathy ENT History: No Pertinent History, Other Cardiac History: Coronary Artery Disease, High Cholesterol, Myocardial Infarction ([place]) Respiratory History: Asthma, COPD Endocrine Medical History: Hypothyroidism Musculoskeletal History: Arthritis, Degenerative Disk Disease, Osteoarthritis GI Medical History: Gallbladder Disease, Pancreatitis History: No Pertinent History Psycho-Social History: No Pertinent History Female Reproductive Disorders: No Pertinent History Other Medical History: Thyroid problems, heart blockage - Past Surgical History Past Surgical History: Yes Neuro Surgical History: No Pertinent History Cardiac: No Pertinent History Respiratory: No Pertinent History Gastrointestinal: Cholecystectomy Genitourinary: No Pertinent History Musculoskeletal: No Pertinent History Female Surgical History: Hysterectomy Other Surgical History: ERCP - Social History Smoking Status: Never smoker Exposure to second hand smoke: No Drug Use: none Patient Lives Alone: No - Female History Hx Now: No - Nursing Vital Signs Nursing Vital Signs: Initial Vital Signs Temperature 98.9 F 08/08/20 19:13 Pulse Rate 67 08/08/20 19:13 Respiratory Rate 18 08/08/20 19:13 Blood Pressure 166/86 08/08/20 19:13 O2 Sat by Pulse Oximetry 95 08/08/20 19:13 Pain Scale Pain Intensity 2 - Physical Exam General Appearance: no apparent distress, alert, other (There is swelling to the left side of the upper lip. There is not appear to be any involvement of the intraoral mucosa.) Eye Exam: PERRL/EOMI, eyes nml inspection Ears, Nose, Throat Exam: normal ENT inspection, TMs normal, pharynx normal, moist mucous membranes, other Neck Exam: normal inspection, non-tender, supple, full range of motion Respiratory Exam: normal breath sounds, lungs clear, No respiratory distress Cardiovascular Exam: regular rate/rhythm, normal heart sounds, normal peripheral pulses Gastrointestinal/Abdomen Exam: soft, normal bowel sounds, No tenderness, No mass Back Exam: normal inspection, normal range of motion, No CVA tenderness, No vertebral tenderness Extremity Exam: normal inspection, normal range of motion, pelvis stable Neurologic Exam: alert, 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, cooperative, normal mood/affect, nml cerebellar function, nml station & gait, sensation nml, No motor deficits Skin Exam: normal color, warm, dry, No rash Lymphatic Exam: No adenopathy SpO2 Interpretation: normal SpO2: 95 O2 Delivery: Room Air - Course Nursing assessment & vital signs reviewed: Yes Ordered Tests: Active Orders 24 hr Category Date Time Status IV Insertion STAT Care 08/08/20 20:43 Active CBC W DIFF Stat Lab 08/08/20 20:55 Completed CMP Stat Lab 08/08/20 20:55 Completed UA W/RFX UR CULTURE Stat Lab 08/08/20 20:44 Ordered Transfer Order Routine Transfer 08/08/20 Ordered Medication Summary Discontinued Medications Generic Name Dose Route Start Last Admin Trade Name Freq PRN Reason Stop Dose Admin Famotidine 20 mg 08/08/20 21:20 08/08/20 21:28 Pepcid 20 Mg Vial IV 08/08/20 21:21 20 mg STAT ONE Administration Famotidine Confirm 08/08/20 21:26 Pepcid 20 Mg Vial Administered 08/08/20 21:27 Dose 20 mg IV .STK-MED ONE Prednisone 60 mg 08/08/20 19:28 08/08/20 19:38 Deltasone 20 Mg PO 08/08/20 19:29 60 mg STAT ONE Administration Prednisone Confirm 08/08/20 19:36 Deltasone 20 Mg Administered 08/08/20 19:37 Dose 60 mg .ROUTE .STK-MED ONE Lab/Rad Data: Laboratory Result Diagrams 08/08/20 20:55 08/08/20 20:55 Laboratory Results 08/08/20 08/08/20 08/08/20 Range/Units 21:19 20:55 20:55 WBC 7.4 (4.0-10.5) K/mm3 RBC 4.48 (4.1-5.4) M/mm3 Hgb 13.7 (12.0-16.0) gm/dl Hct 42.3 (35-47) % MCV 94.4 (78-100) fl MCH 30.6 (26-32) pg MCHC 32.4 (32-36) g/dl RDW 13.5 (11.5-14.0) % Plt Count 307 (150-450) K/mm3 MPV 9.7 (7.5-11.0) fl Gran % 60.2 (36.0-66.0) % Eos # (Auto) 0.26 (0-0.5) Absolute Lymphs (auto) 2.14 (1.0-4.6) Absolute Monos (auto) 0.49 (0.0-1.3) Lymphocytes % 29.1 (24.0-44.0) % Monocytes % 6.7 (0.0-12.0) % Eosinophils % 3.5 (0.00-5.0) % Basophils % 0.5 (0.0-0.4) % Absolute Granulocytes 4.42 (1.4-6.9) Basophils # 0.04 (0-0.4) Sodium 138 (137-145) mmol/L Potassium 3.9 (3.5-5.1) mmol/L Chloride 100 (98-107) mmol/L Carbon Dioxide 31 H (22-30) mmol/L Anion Gap 10.6 (5-15) MEQ/L BUN 16 (7-17) mg/dL Creatinine 0.92 (0.52-1.04) mg/dL Estimated GFR > 60.0 ML/MIN Glucose 96 (74-106) mg/dL Calcium 10.0 (8.4-10.2) mg/dL Total Bilirubin 0.40 (0.2-1.3) mg/dL AST 32 (14-36) U/L ALT 32 (0-35) U/L Alkaline Phosphatase 86 (38-126) U/L Serum Total Protein 7.3 (6.3-8.2) g/dL Albumin 4.6 (3.5-5.0) g/dL Influenza Type A Ag NEGATIVE (NEGATIVE) Influenza Type B Ag NEGATIVE (NEGATIVE) RSV (PCR) NEGATIVE (Negative) SARS-CoV-2 (PCR) NEGATIVE (NEGATIVE) - Progress Progress: improved Progress Note: Case discussed with Dr. Root who accepts admission to observation. Covid test negative. Patient received steroids, Benadryl and Pepcid in our ED. IV access placed. Patient has been stable. However there is significant swelling of her upper lip. Per Dr. Root Benshon and every 6 hour Solu-Medrol ordered for the floor. Plan of care discussed with patient. She agrees to admission at [facility] for further evaluation and treatment. Portions of this note were created with voice recognition technology. There may be grammatical, spelling, punctuation or sound alike errors 08/08/20 22:49 Discussed with : Nicholas Will see patient in: hospital (observation) Counseled pt/family regarding: lab results, diagnosis, rad results - Departure Departure Disposition: Observation Clinical Impression: Angioedema Condition: Stable Critical Care Time: No Referrals: DWIGHT MARTÍNEZ [Primary Care Provider] -
[2020-08-08 21:04] LABS: Absolute Neutrophil Ct (ANC) 4.42 (1.4-6.9); BASOPHIL % 0.5 % (0.0-0.4); Basophil (Absolute #) 0.04 (0-0.4); Eosinophil % 3.5 % (0.00-5.0); Eosinophil (Absolute #) 0.26 (0-0.5); Hematocrit 42.3 % (35-47); Hemoglobin 13.7 gm/dl (12.0-16.0); Lymphocyte (Absolute #) 2.14 (1.0-4.6); Lymphocytes % 29.1 % (24.0-44.0); Mean Cell Volume 94.4 fl (78-100); Mean Corpuscular Hemoglobin 30.6 pg (26-32); Mean Corpuscular Hgb Concent. 32.4 g/dl (32-36); Mean Platelet Volume 9.7 fl (7.5-11.0); Monocyte (Absolute #) 0.49 (0.0-1.3); Monocytes % 6.7 % (0.0-12.0); Neutrophil % 60.2 % (36.0-66.0); Platelet Count 307 K/mm3 (150-450); Red Blood Count 4.48 M/mm3 (4.1-5.4); Red Cell Distribution Width 13.5 % (11.5-14.0); White Blood Count 7.4 K/mm3 (4.0-10.5)
[2020-08-08 21:14] LABS: ALBUMIN 4.6 g/dL (3.5-5.0); ALKALINE PHOSPHATASE 86 U/L (38-126); ANION GAP 10.6 MEQ/L (5-15); BLOOD UREA NITROGEN 16 mg/dL (7-17); CHLORIDE 100 mmol/L (98-107); Carbon Dioxide 31 mmol/L (22-30); Creatinine 1 0.92 mg/dL (0.52-1.04); EST GLOMERULAR FILTRATION RATE > 60.0 ML/MIN; Glucose 96 mg/dL (74-106); Potassium 3.9 mmol/L (3.5-5.1); SGOT/AST 32 U/L (14-36); SGPT/ALT 32 U/L (0-35); SODIUM 138 mmol/L (137-145); Total Protein 7.3 g/dL (6.3-8.2)
[2020-08-08] MEDS ORDERED: Pepcid 20 MG VIAL IV ONE ×2 (21:20→21:26)
[2020-08-08 22:15] LABS: INFLUENZA A NEGATIVE (NEGATIVE); INFLUENZA B NEGATIVE (NEGATIVE); RESPIRATORY SYNCTIAL VIRUS NEGATIVE (Negative)
[2020-08-08 23:17] LABS: Appearance CLEAR (CLEAR); Bilirubin NEGATIVE (NEGATIVE); Blood NEGATIVE Ery/ul (0-5); Glucose NEGATIVE (NEGATIVE); Ketones NEGATIVE (NEGATIVE); Leukocyte Esterase NEGATIVE (NEGATIVE); Nitrite NEGATIVE (NEGATIVE); Protein,Urine Dip NEGATIVE (Negative); Specific Gravity 1.004 (1.005-1.025); Urobilinogen NEGATIVE mg/dL (0-1)
[2020-08-08] MEDS ORDERED: BENADRYL 50 MG/ML IV PRN (23:21)
[2020-08-08] MEDS ORDERED: solu-MEDROL 40 MG IV ONE (23:21)
[2020-08-09] MEDS ORDERED: VENTOLIN COMMON CANISTER IH PRN (00:25)
[2020-08-09] MEDS: solu-MEDROL 40 MG IV SCH ×2 (00:41→06:26)
[2020-08-09 05:34] VITALS: PULSE 63
[2020-08-09 07:44] VITALS: BP 103/53; O2SAT 95
--- NOTE | 2020-08-09 08:04 | PCM.SSS ---
History of Present Illness - Chief Complaint Chief Complaint: Angioedema History of Present Illness: is a 75 year old female who presented to the ER last evening, she developed swelling of her upper lip that worsened over a couple of hours, she is not on an keren inhibitor, no new meds. there was no cough, no shortness of breath nor any trouble swallowing. she has multiple longstanding allergies, normally sees Dr Андрей Martínez. she does note that she put some flea treatment on her cat the evening before and he became sick so she tried to clean it off, she remembers kissing his head yesterday prior to this event starting. - Review of Systems Constitutional: No Fever, No Chills Ears, Nose, & Throat: Other (upper lip swelling), No Mouth Swelling Respiratory: No Cough, No Short Of Breath Cardiac: No Symptoms Skin: No Rash All Other Systems: Reviewed and Negative Medications & Allergies Home Medications: Home Medication List Estrogens,Conjugated [Premarin] 0.625 mg PO DAILY 10/04/11 [History Confirmed 08/08/20] Levothyroxine Sodium [Synthroid] 75 mcg PO DAILY 06/26/16 [History Confirmed 08/08/20] Aspirin 81 mg PO HS 05/09/17 [History Confirmed 08/08/20] Ergocalciferol (Vitamin D2) [Vitamin D] 50,000 cap PO WEEKLY 05/09/17 [History Confirmed 08/08/20] Clopidogrel Bisulfate 75 mg [PLAVIX 75 MG Tablet] 75 mg PO DAILY 05/22/19 [History Confirmed 08/08/20] Hydrocodone/Acetaminophen [Hydrocodone-Acetamin 5-325 mg] 1 each PO DAILY PRN PRN 05/22/19 [History Confirmed 08/08/20] Pantoprazole 20 mg [Protonix 20MG Tablet] 20 mg PO HS 05/22/19 [History Confirmed 08/08/20] Bempedoic Acid/Ezetimibe [Nexlizet 180-10 mg Tablet] 1 each PO DAILY 08/08/20 [History Confirmed 08/08/20] Duloxetine HCl [Cymbalta] 20 mg PO BID 08/08/20 [History Confirmed 08/08/20] Fluticasone Propionate [Flonase NASAL] 1 gm NS HS 08/08/20 [History Confirmed 08/08/20] Linaclotide [Linzess] 72 mcg PO DAILY PRN PRN 08/08/20 [History Confirmed 08/08/20] Nitroglycerin [Nitrostat] 0.4 mg SL Q5MIN PRN MR X 3 PRN 08/08/20 [History Confirmed 08/08/20] Ubidecarenone [Co Q-10] 100 mg PO DAILY 08/08/20 [History Confirmed 08/09/20] Vit B Cmplx #9/FA/Vit C/Vit E [Renatabs Tablet] 1 each PO DAILY PRN PRN 08/08/20 [History Confirmed 08/09/20] Albuterol 8 gm Mdi Hfa [Ventolin Hfa MDI] 18 gm IH 08/09/20 [History Confirmed 08/09/20] Methylprednisolone Packet [Medrol Dosepack] 4 mg PO UD #30 packet 08/09/20 [Rx] Allergies/Adverse Reactions: Allergies Allergy/AdvReac Type Severity Reaction Status Date / Time azelastine HCl [From Astelin] Allergy Mild Verified 08/08/20 19:13 clarithromycin [From Biaxin] Allergy Mild Verified 08/08/20 19:13 valdecoxib [From Bextra] Allergy Mild Verified 08/08/20 19:13 moxifloxacin Allergy Verified 08/08/20 19:13 - Past Medical History Past Medical History: Yes Neurological History: Peripheral Neuropathy ENT History: No Pertinent History, Other Cardiac History: Coronary Artery Disease, High Cholesterol, Myocardial Infarction ([place]) Respiratory History: Asthma, COPD Endocrine Medical History: Hypothyroidism Musculoskelatal History: Arthritis, Degenerative Disk Disease, Osteoarthritis GI Medical History: Gallbladder Disease, Pancreatitis History: No Pertinent History Pyscho-Social History: No Pertinent History Reproductive Disorders: No Pertinent History Comment: Thyroid problems, heart blockage, 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 - Female History Are you now?: No - Past Surgical History Past Surgical History: Yes Neuro Surgical History: No Pertinent History Cardiac History: Cardiac Catheterization Respiratory Surgery: No Pertinent History GI Surgical History: Cholecystectomy Genitourinary Surgical Hx: No Pertinent History Musculskeletal Surgical Hx: No Pertinent History Female Surgical History: Hysterectomy Other Surgical History: ERCP - Social History Smoking Status: Never smoker Exposure to second hand smoke: No Alcohol: None Drug Use: none - Physical Exam Vital Signs: Vital Signs - 24 hr Temp Pulse Resp BP Pulse Ox 08/09/20 07:43 97.9 F 63 20 103/53 95 08/09/20 04:00 97.8 F 63 18 113/53 92 L 08/09/20 00:35 59 L 16 94 L 08/09/20 00:04 97.4 F 71 16 126/73 94 L 08/08/20 22:50 95 08/08/20 22:34 55 L 158/75 93 L 08/08/20 20:35 55 L 119/55 98 08/08/20 19:13 98.9 F 67 18 166/86 95 General Appearance: no apparent distress, alert Neurologic Exam: alert, 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, cooperative, normal mood/affect, nml cerebellar function, nml station & gait, sensation nml, No motor deficits Ears, Nose, Throat Exam: other (mild swelling to upper lip, oropharynx clear) Respiratory Exam: normal breath sounds, lungs clear, No respiratory distress Cardiovascular Exam: regular rate/rhythm, normal heart sounds, normal peripheral pulses Gastrointestinal/Abdomen Exam: soft, normal bowel sounds, No tenderness, No mass Results - Labs Lab/Micro Results: Lab Results-Last 24 Hours 08/08/20 08/08/20 08/08/20 Range/Units 20:55 20:55 21:19 WBC 7.4 (4.0-10.5) K/mm3 RBC 4.48 (4.1-5.4) M/mm3 Hgb 13.7 (12.0-16.0) gm/dl Hct 42.3 (35-47) % MCV 94.4 (78-100) fl MCH 30.6 (26-32) pg MCHC 32.4 (32-36) g/dl RDW 13.5 (11.5-14.0) % Plt Count 307 (150-450) K/mm3 MPV 9.7 (7.5-11.0) fl Gran % 60.2 (36.0-66.0) % Eos # (Auto) 0.26 (0-0.5) Absolute Lymphs (auto) 2.14 (1.0-4.6) Absolute Monos (auto) 0.49 (0.0-1.3) Lymphocytes % 29.1 (24.0-44.0) % Monocytes % 6.7 (0.0-12.0) % Eosinophils % 3.5 (0.00-5.0) % Basophils % 0.5 (0.0-0.4) % Absolute Granulocytes 4.42 (1.4-6.9) Basophils # 0.04 (0-0.4) Sodium 138 (137-145) mmol/L Potassium 3.9 (3.5-5.1) mmol/L Chloride 100 (98-107) mmol/L Carbon Dioxide 31 H (22-30) mmol/L Anion Gap 10.6 (5-15) MEQ/L BUN 16 (7-17) mg/dL Creatinine 0.92 (0.52-1.04) mg/dL Estimated GFR > 60.0 ML/MIN Glucose 96 (74-106) mg/dL Calcium 10.0 (8.4-10.2) mg/dL Total Bilirubin 0.40 (0.2-1.3) mg/dL AST 32 (14-36) U/L ALT 32 (0-35) U/L Alkaline Phosphatase 86 (38-126) U/L Serum Total Protein 7.3 (6.3-8.2) g/dL Albumin 4.6 (3.5-5.0) g/dL Urine Color (YELLOW) Urine Appearance (CLEAR) Urine pH (5-6) Ur Specific [place] (1.005-1.025) Urine Protein (Negative) Urine Ketones (NEGATIVE) Urine Blood (0-5) Buster/ul Urine Nitrite (NEGATIVE) Urine Bilirubin (NEGATIVE) Urine Urobilinogen (0-1) mg/dL Ur Leukocyte Esterase (NEGATIVE) Urine WBC (Auto) (0-5) /HPF Urine RBC (Auto) (0-2) /HPF U Epithel Cells (Auto) (FEW) /HPF Urine Bacteria (Auto) (NEGATIVE) /HPF Urine Culture Reflexed (NO) Urine Glucose (NEGATIVE) mg/dL Influenza Type A Ag NEGATIVE (NEGATIVE) Influenza Type B Ag NEGATIVE (NEGATIVE) RSV (PCR) NEGATIVE (Negative) SARS-CoV-2 (PCR) NEGATIVE (NEGATIVE) 08/08/20 Range/Units 23:00 WBC (4.0-10.5) K/mm3 RBC (4.1-5.4) M/mm3 Hgb (12.0-16.0) gm/dl Hct (35-47) % MCV (78-100) fl MCH (26-32) pg MCHC (32-36) g/dl RDW (11.5-14.0) % Plt Count (150-450) K/mm3 MPV (7.5-11.0) fl Gran % (36.0-66.0) % Eos # (Auto) (0-0.5) Absolute Lymphs (auto) (1.0-4.6) Absolute Monos (auto) (0.0-1.3) Lymphocytes % (24.0-44.0) % Monocytes % (0.0-12.0) % Eosinophils % (0.00-5.0) % Basophils % (0.0-0.4) % Absolute Granulocytes (1.4-6.9) Basophils # (0-0.4) Sodium (137-145) mmol/L Potassium (3.5-5.1) mmol/L Chloride (98-107) mmol/L Carbon Dioxide (22-30) mmol/L Anion Gap (5-15) MEQ/L BUN (7-17) mg/dL Creatinine (0.52-1.04) mg/dL Estimated GFR ML/MIN Glucose (74-106) mg/dL Calcium (8.4-10.2) mg/dL Total Bilirubin (0.2-1.3) mg/dL AST (14-36) U/L ALT (0-35) U/L Alkaline Phosphatase (38-126) U/L Serum Total Protein (6.3-8.2) g/dL Albumin (3.5-5.0) g/dL Urine Color STRAW (YELLOW) Urine Appearance CLEAR (CLEAR) Urine pH 8.0 (5-6) Ur Specific [place] 1.004 (1.005-1.025) Urine Protein NEGATIVE (Negative) Urine Ketones NEGATIVE (NEGATIVE) Urine Blood NEGATIVE (0-5) Buster/ul Urine Nitrite NEGATIVE (NEGATIVE) Urine Bilirubin NEGATIVE (NEGATIVE) Urine Urobilinogen NEGATIVE (0-1) mg/dL Ur Leukocyte Esterase NEGATIVE (NEGATIVE) Urine WBC (Auto) NONE (0-5) /HPF Urine RBC (Auto) NONE (0-2) /HPF U Epithel Cells (Auto) NONE (FEW) /HPF Urine Bacteria (Auto) NONE (NEGATIVE) /HPF Urine Culture Reflexed NO (NO) Urine Glucose NEGATIVE (NEGATIVE) mg/dL Influenza Type A Ag (NEGATIVE) Influenza Type B Ag (NEGATIVE) RSV (PCR) (Negative) SARS-CoV-2 (PCR) (NEGATIVE) - Other Procedures and Tests Respiratory Therapy 08/09/20 00:24 Respiratory Therapy Assessment DAILY Assessment/Plan (1) Allergic reaction Current Visit: No Status: Acute Qualifiers: Encounter type: initial encounter Qualified Code(s): T78.40XA - Allergy, unspecified, initial encounter Assessment & Plan: seems like allergic reaction to flea treatment rather than angioedema, there is no pharyngeal of mucosal membrane involvement. will treat with steroids and see Dr Martínez in followup, patient feels great and has no complaints and would like to go home today Code(s): T78.40XA - ALLERGY, UNSPECIFIED, INITIAL ENCOUNTER (2) Angioedema Current Visit: Yes Status: Acute Code(s): T78.3XXA - ANGIONEUROTIC EDEMA, INITIAL ENCOUNTER Hospital Summary - Vitals & Intake/Output Vital Signs: Vital Signs Temperature 97.9 F 08/09/20 07:43 Pulse Rate 63 08/09/20 07:43 Respiratory Rate 20 08/09/20 07:43 Blood Pressure 103/53 08/09/20 07:43 O2 Sat by Pulse Oximetry 95 08/09/20 07:43 Intake & Output: Intake & Output 08/06/20 08/07/20 08/08/20 08/09/20 11:59 11:59 11:59 11:59 Intake Total 770 Output Total 700 Balance 70 Weight 87.5 kg - Lab Result Diagrams: 08/08/20 20:55 08/08/20 20:55 Lab Results-Last 24 Hrs: Lab Results-Last 24 Hours 08/08/20 08/08/20 08/08/20 Range/Units 20:55 20:55 21:19 WBC 7.4 (4.0-10.5) K/mm3 RBC 4.48 (4.1-5.4) M/mm3 Hgb 13.7 (12.0-16.0) gm/dl Hct 42.3 (35-47) % MCV 94.4 (78-100) fl MCH 30.6 (26-32) pg MCHC 32.4 (32-36) g/dl RDW 13.5 (11.5-14.0) % Plt Count 307 (150-450) K/mm3 MPV 9.7 (7.5-11.0) fl Gran % 60.2 (36.0-66.0) % Eos # (Auto) 0.26 (0-0.5) Absolute Lymphs (auto) 2.14 (1.0-4.6) Absolute Monos (auto) 0.49 (0.0-1.3) Lymphocytes % 29.1 (24.0-44.0) % Monocytes % 6.7 (0.0-12.0) % Eosinophils % 3.5 (0.00-5.0) % Basophils % 0.5 (0.0-0.4) % Absolute Granulocytes 4.42 (1.4-6.9) Basophils # 0.04 (0-0.4) Sodium 138 (137-145) mmol/L Potassium 3.9 (3.5-5.1) mmol/L Chloride 100 (98-107) mmol/L Carbon Dioxide 31 H (22-30) mmol/L Anion Gap 10.6 (5-15) MEQ/L BUN 16 (7-17) mg/dL Creatinine 0.92 (0.52-1.04) mg/dL Estimated GFR > 60.0 ML/MIN Glucose 96 (74-106) mg/dL Calcium 10.0 (8.4-10.2) mg/dL Total Bilirubin 0.40 (0.2-1.3) mg/dL AST 32 (14-36) U/L ALT 32 (0-35) U/L Alkaline Phosphatase 86 (38-126) U/L Serum Total Protein 7.3 (6.3-8.2) g/dL Albumin 4.6 (3.5-5.0) g/dL Urine Color (YELLOW) Urine Appearance (CLEAR) Urine pH (5-6) Ur Specific [place] (1.005-1.025) Urine Protein (Negative) Urine Ketones (NEGATIVE) Urine Blood (0-5) Buster/ul Urine Nitrite (NEGATIVE) Urine Bilirubin (NEGATIVE) Urine Urobilinogen (0-1) mg/dL Ur Leukocyte Esterase (NEGATIVE) Urine WBC (Auto) (0-5) /HPF Urine RBC (Auto) (0-2) /HPF U Epithel Cells (Auto) (FEW) /HPF Urine Bacteria (Auto) (NEGATIVE) /HPF Urine Culture Reflexed (NO) Urine Glucose (NEGATIVE) mg/dL Influenza Type A Ag NEGATIVE (NEGATIVE) Influenza Type B Ag NEGATIVE (NEGATIVE) RSV (PCR) NEGATIVE (Negative) SARS-CoV-2 (PCR) NEGATIVE (NEGATIVE) 08/08/20 Range/Units 23:00 WBC (4.0-10.5) K/mm3 RBC (4.1-5.4) M/mm3 Hgb (12.0-16.0) gm/dl Hct (35-47) % MCV (78-100) fl MCH (26-32) pg MCHC (32-36) g/dl RDW (11.5-14.0) % Plt Count (150-450) K/mm3 MPV (7.5-11.0) fl Gran % (36.0-66.0) % Eos # (Auto) (0-0.5) Absolute Lymphs (auto) (1.0-4.6) Absolute Monos (auto) (0.0-1.3) Lymphocytes % (24.0-44.0) % Monocytes % (0.0-12.0) % Eosinophils % (0.00-5.0) % Basophils % (0.0-0.4) % Absolute Granulocytes (1.4-6.9) Basophils # (0-0.4) Sodium (137-145) mmol/L Potassium (3.5-5.1) mmol/L Chloride (98-107) mmol/L Carbon Dioxide (22-30) mmol/L Anion Gap (5-15) MEQ/L BUN (7-17) mg/dL Creatinine (0.52-1.04) mg/dL Estimated GFR ML/MIN Glucose (74-106) mg/dL Calcium (8.4-10.2) mg/dL Total Bilirubin (0.2-1.3) mg/dL AST (14-36) U/L ALT (0-35) U/L Alkaline Phosphatase (38-126) U/L Serum Total Protein (6.3-8.2) g/dL Albumin (3.5-5.0) g/dL Urine Color STRAW (YELLOW) Urine Appearance CLEAR (CLEAR) Urine pH 8.0 (5-6) Ur Specific [place] 1.004 (1.005-1.025) Urine Protein NEGATIVE (Negative) Urine Ketones NEGATIVE (NEGATIVE) Urine Blood NEGATIVE (0-5) Buster/ul Urine Nitrite NEGATIVE (NEGATIVE) Urine Bilirubin NEGATIVE (NEGATIVE) Urine Urobilinogen NEGATIVE (0-1) mg/dL Ur Leukocyte Esterase NEGATIVE (NEGATIVE) Urine WBC (Auto) NONE (0-5) /HPF Urine RBC (Auto) NONE (0-2) /HPF U Epithel Cells (Auto) NONE (FEW) /HPF Urine Bacteria (Auto) NONE (NEGATIVE) /HPF Urine Culture Reflexed NO (NO) Urine Glucose NEGATIVE (NEGATIVE) mg/dL Influenza Type A Ag (NEGATIVE) Influenza Type B Ag (NEGATIVE) RSV (PCR) (Negative) SARS-CoV-2 (PCR) (NEGATIVE) - Procedures and Test Procedures and Tests throughout Hospitalization: Therapy Orders & Screens 08/09/20 00:24 Respiratory Therapy Assessment DAILY Comment: Diagnosis: Angioedema - Discharge Disposition: Home, Self-Care Condition: Stable Prescriptions: New Methylprednisolone Packet [Medrol Dosepack] 4 mg PO UD #30 packet Continue Estrogens,Conjugated [Premarin] 0.625 mg PO DAILY Levothyroxine Sodium [Synthroid] 75 mcg PO DAILY Aspirin 81 mg PO HS Ergocalciferol (Vitamin D2) [Vitamin D] 50,000 cap PO WEEKLY Pantoprazole 20 mg [Protonix 20MG Tablet] 20 mg PO HS Hydrocodone/Acetaminophen [Hydrocodone-Acetamin 5-325 mg] 1 each PO DAILY PRN PRN PRN Reason: Pain Clopidogrel Bisulfate 75 mg [PLAVIX 75 MG Tablet] 75 mg PO DAILY Nitroglycerin [Nitrostat] 0.4 mg SL Q5MIN PRN MR X 3 PRN PRN Reason: Chest Pain Fluticasone Propionate [Flonase NASAL] 1 gm NS HS Bempedoic Acid/Ezetimibe [Nexlizet 180-10 mg Tablet] 1 each PO DAILY Duloxetine HCl [Cymbalta] 20 mg PO BID Linaclotide [Linzess] 72 mcg PO DAILY PRN PRN PRN Reason: Constipation Vit B Cmplx #9/FA/Vit C/Vit E [Renatabs Tablet] 1 each PO DAILY PRN PRN PRN Reason: supplement Ubidecarenone [Co Q-10] 100 mg PO DAILY Albuterol 8 gm Mdi Hfa [Ventolin Hfa MDI] 18 gm IH HS Follow up with: DWIGHT MARTÍNEZ [Primary Care Provider] -
== END 2020-08-09 09:30 | disposition home or self-care (01) ==
LOC: ED 19:03 → MED SURG 23:05
PROVIDERS: ADMIT Family Medicine; ATTEND Family Medicine
DX: T78.40XA Allergy, unspecified, initial encounter (principal); T78.3XXA Angioneurotic edema, initial encounter; Z79.899 Other long term (current) drug therapy; Z79.01 Long term (current) use of anticoagulants; E78.00 Pure hypercholesterolemia, unspecified; E03.9 Hypothyroidism, unspecified; J44.9 Chronic obstructive pulmonary disease, unspecified; Z20.828 Contact with and (suspected) exposure to other viral communicable diseases
CPT/HCPCS: 0241U; 36000; 36415; 80053; 81001; 85025; 93268; 94640; 96374; 99284; G0378; J2920; A9270-GY

== ENCOUNTER 2020-10-28 13:49 | Observation (INO) | payer MEDICARE, OTHER ==
[2020-10-28] MEDS ORDERED: Sodium Chloride 0.9% 1000 ML 1,000 ML IV STA ×2 (15:42→19:32)
[2020-10-28] MEDS ORDERED: KENALOG 0.1% LOTION TP ONE (15:50)
[2020-10-28] MEDS ORDERED: Sodium Chloride 0.9% 1000 ML 1,000 ML ONE (15:54)
[2020-10-28 15:55] LABS: Absolute Neutrophil Ct (ANC) 2.61 (1.4-6.9); BASOPHIL % 0.8 % (0.0-0.4); Basophil (Absolute #) 0.04 (0-0.4); Eosinophil % 4.3 % (0.00-5.0); Eosinophil (Absolute #) 0.22 (0-0.5); Hematocrit 41.6 % (35-47); Hemoglobin 13.4 gm/dl (12.0-16.0); Lymphocyte (Absolute #) 1.73 (1.0-4.6); Lymphocytes % 33.9 % (24.0-44.0); Mean Cell Volume 94.5 fl (78-100); Mean Corpuscular Hemoglobin 30.5 pg (26-32); Mean Corpuscular Hgb Concent. 32.2 g/dl (32-36); Mean Platelet Volume 10.5 fl (7.5-11.0); Monocytes % 9.8 % (0.0-12.0); Neutrophil % 51.2 % (36.0-66.0); Platelet Count 319 K/mm3 (150-450); Red Cell Distribution Width 13.8 % (11.5-14.0); White Blood Count 5.1 K/mm3 (4.0-10.5)
[2020-10-28 16:12] LABS: ALBUMIN 4.3 g/dL (3.5-5.0); ALKALINE PHOSPHATASE 73 U/L (38-126); AMYLASE 74 U/L (30-110); ANION GAP 12.2 MEQ/L (5-15); BLOOD UREA NITROGEN 15 mg/dL (7-17); CHLORIDE 103 mmol/L (98-107); Calcium 9.8 mg/dL (8.4-10.2); Carbon Dioxide 28 mmol/L (22-30); Creatinine 1 0.82 mg/dL (0.52-1.04); EST GLOMERULAR FILTRATION RATE > 60.0 ML/MIN; Glucose 94 mg/dL (74-106); LIPASE 99 U/L (23-300); NT PRO BNP 58.2 pg/mL (0-1800); Potassium 3.8 mmol/L (3.5-5.1); SGOT/AST 44 U/L (14-36); SGPT/ALT 46 U/L (0-35); SODIUM 140 mmol/L (137-145); Total Protein 7.1 g/dL (6.3-8.2)
[2020-10-28 16:37] LABS: Appearance CLEAR (CLEAR); Bacteria RARE /HPF (NEGATIVE); Bilirubin NEGATIVE (NEGATIVE); Blood NEGATIVE Ery/ul (0-5); Glucose NEGATIVE (NEGATIVE); Ketones NEGATIVE (NEGATIVE); Leukocyte Esterase NEGATIVE (NEGATIVE); Nitrite NEGATIVE (NEGATIVE); Protein,Urine Dip NEGATIVE (Negative); Specific Gravity 1.004 (1.005-1.025); Urobilinogen NEGATIVE mg/dL (0-1); WBC 0-2 /HPF (0-5)
--- NOTE | 2020-10-28 17:03 | ERPHSYRPT ---
- History of Present Illness Time Seen by Provider: 10/28/20 14:10 Historian: patient, family Exam Limitations: no limitations Patient Subjective Stated Complaint: pt reports, headache, diarrhea, dizziness, chest pain, and fatigue. reports she would like a covid test. pt also reports a rash under her breasts and in her groin area and intermittently under on arm. states that she took 2 nitro [employer]. pt states "i just dont feel well" Triage Nursing Assessment: pt is aox3, pupils perrl, talkative, afebrile, resps easy and non labored, cap refill < 3 seconds, radial pulses strong and equal, pt skin pink warm dry. Physician History: Patient is a 75-year-old white female who presents with multiple complaints. She says she has not been feeling right for a week she has had some diarrhea on and off she has had some rash beneath her breast and in her inguinal areas she also has left-sided chest pain and epigastric pain her blood pressure one point was 99/67 she did take a nitroglycerin and had a near syncopal episode thinking probably her blood pressure got even lower. She has had some chills but no fever or sweats she has had a 6 pound weight loss over the past week she has a severe headache. Timing/Duration: week(s) (1), gradual onset, worse Activities at Onset: none Quality: cramping Location: substernal, epigastric Severity of Pain-Max: mild Severity of Pain-Current: mild Modifying Factors: Improves With: nitroglycerin Associated Symptoms: nausea, chills, syncope (Near syncope after nitroglycerin) Prior Chest Pain/Cardiac Workup: angina Nitro Today/Relief: 0.4 mg x 1 Aspirin Treatment Today: no aspirin today Allergies/Adverse Reactions: azelastine HCl [From Astelin] Allergy (Mild, Verified 10/28/20 14:03) clarithromycin [From Biaxin] Allergy (Mild, Verified 10/28/20 14:03) valdecoxib [From Bextra] Allergy (Mild, Verified 10/28/20 14:03) moxifloxacin Allergy (Verified 10/28/20 14:03) Home Medications: Estrogens,Conjugated [Premarin] 0.625 mg PO DAILY 10/04/11 [History] Levothyroxine Sodium [Synthroid] 75 mcg PO DAILY 06/26/16 [History] Aspirin 81 mg PO HS 05/09/17 [History] Ergocalciferol (Vitamin D2) [Vitamin D] 50,000 cap PO WEEKLY 05/09/17 [History] Clopidogrel Bisulfate 75 mg [PLAVIX 75 MG Tablet] 75 mg PO DAILY 05/22/19 [History] Hydrocodone/Acetaminophen [Hydrocodone-Acetamin 5-325 mg] 1 each PO DAILY PRN PRN 05/22/19 [History] Pantoprazole 20 mg [Protonix 20MG Tablet] 20 mg PO HS 05/22/19 [History] Bempedoic Acid/Ezetimibe [Nexlizet 180-10 mg Tablet] 1 each PO DAILY 08/08/20 [History] Duloxetine HCl [Cymbalta] 20 mg PO BID 08/08/20 [History] Fluticasone Propionate [Flonase NASAL] 1 gm NS HS 08/08/20 [History] Linaclotide [Linzess] 72 mcg PO DAILY PRN PRN 08/08/20 [History] Nitroglycerin [Nitrostat] 0.4 mg SL Q5MIN PRN MR X 3 PRN 08/08/20 [History] Ubidecarenone [Co Q-10] 100 mg PO DAILY 08/08/20 [History] Vit B Cmplx #9/FA/Vit C/Vit E [Renatabs Tablet] 1 each PO DAILY PRN PRN 08/08/20 [History] Albuterol 8 gm Mdi Hfa [Ventolin Hfa MDI] 18 gm IH 08/09/20 [History] Hx Tetanus, Diphtheria Vaccination/Date Given: Yes Hx Influenza Vaccination/Date Given: Yes Hx Pneumococcal Vaccination/Date Given: Yes Immunizations Up to Date: Yes Travel Risk - International Travel Have you traveled outside of the country in past 3 weeks: No - Coronavirus Screening Symptoms: Vomiting/Diarrhea, Headaches/Body Aches/Fatigue Close contact with a COVID-19 positive Pt in past 14-21 Days: No - Vaccine Status Have you recieved a Covid-19 vaccination: Yes 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: [email or web address] - Vaccination Dates Date of 2cond Vaccination (if applicable): unk Dates if Unknown: unk - Review of Systems Constitutional: Chills, No Fever Eyes: No Symptoms Ears, Nose, & Throat: No Symptoms Respiratory: No Cough, No Dyspnea Cardiac: Chest Pain, No Edema, No Syncope Abdominal/Gastrointestinal: Nausea, No Abdominal Pain, No Vomiting, No Diarrhea Genitourinary Symptoms: No Dysuria Musculoskeletal: No Back Pain, No Neck Pain Skin: No Rash Neurological: No Dizziness, No Focal Weakness, No Sensory Changes Psychological: No Symptoms Endocrine: No Symptoms All Other Systems: Reviewed and Negative - Past Medical History Pertinent Past Medical History: Yes Neurological History: Peripheral Neuropathy ENT History: No Pertinent History, Other Cardiac History: Coronary Artery Disease, High Cholesterol, Myocardial Infarction ([place]) Respiratory History: Asthma, COPD Endocrine Medical History: Hypothyroidism Musculoskeletal History: Arthritis, Degenerative Disk Disease, Osteoarthritis GI Medical History: Gallbladder Disease, Pancreatitis History: No Pertinent History Psycho-Social History: No Pertinent History Female Reproductive Disorders: No Pertinent History Other Medical History: Thyroid problems, heart blockage, 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 - Past Surgical History Past Surgical History: Yes Neuro Surgical History: No Pertinent History Cardiac: Cardiac Catheterization Respiratory: No Pertinent History Gastrointestinal: Cholecystectomy Genitourinary: No Pertinent History Musculoskeletal: No Pertinent History Female Surgical History: Hysterectomy Other Surgical History: ERCP - Social History Smoking Status: Never smoker Exposure to second hand smoke: No Drug Use: none Patient Lives Alone: No - Female History Hx Now: No - Nursing Vital Signs Nursing Vital Signs: Initial Vital Signs Temperature 97.2 F 10/28/20 13:54 Pulse Rate 69 10/28/20 13:54 Respiratory Rate 20 10/28/20 13:54 Blood Pressure 120/71 10/28/20 13:54 O2 Sat by Pulse Oximetry 99 10/28/20 13:54 Pain Scale Pain Intensity 5 - Physical Exam General Appearance: mild distress, alert Eye Exam: PERRL/EOMI, eyes nml inspection Ears, Nose, Throat Exam: normal ENT inspection, moist mucous membranes Neck Exam: normal inspection, non-tender, supple, full range of motion Respiratory Exam: normal breath sounds, lungs clear, No respiratory distress Cardiovascular Exam: regular rate/rhythm, normal heart sounds Gastrointestinal/Abdomen Exam: soft, No tenderness, No mass Back Exam: normal inspection, No CVA tenderness, No vertebral tenderness Extremity Exam: normal inspection, normal range of motion Neurologic Exam: alert, 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, cooperative, normal mood/affect, sensation nml, No motor deficits Skin Exam: normal color, warm, dry SpO2 Interpretation: normal SpO2: 99 O2 Delivery: Room Air - Course Nursing assessment & vital signs reviewed: Yes EKG Interpreted by Me: RATE (65), Sinus Rhythm, Left [place] Deviation, NORMAL INTERVALS, NORMAL QRS, Non-specific ST Changes - CT Exams Head CT Interpretation: Tele-radiologist Report Chest CT Interpretation: Tele-radiologist Report Ordered Tests: Active Orders 24 hr Category Date Time Status EKG-ER Only STAT Care 10/28/20 15:42 Active IV Insertion STAT Care 10/28/20 15:42 Active CHEST WITH CONTRAST [CT] Stat Exams 10/28/20 16:34 Taken HEAD WITHOUT CONTRAST [CT] Stat Exams 10/28/20 16:13 Taken AMYLASE Stat Lab 10/28/20 15:00 Completed CBC W DIFF Stat Lab 10/28/20 15:00 Completed CMP Stat Lab 10/28/20 15:00 Completed D-DIMER QUANTITATIVE Stat Lab 10/28/20 16:00 Completed LIPASE Stat Lab 10/28/20 15:00 Completed Lactic Acid Stat Lab 10/28/20 15:42 Completed NT PRO BNP Stat Lab 10/28/20 15:00 Completed TROPONIN Q3H Lab 10/28/20 15:00 Completed TROPONIN Q3H Lab 10/28/20 18:45 Ordered TROPONIN Q3H Lab 10/28/20 21:45 Ordered TROPONIN Q3H Lab 10/29/20 00:45 Ordered TROPONIN Q3H Lab 10/29/20 03:45 Ordered UA W/RFX UR CULTURE Stat Lab 10/28/20 15:57 Completed Transfer Order Routine Transfer 10/28/20 Ordered Medication Summary Discontinued Medications Generic Name Dose Route Start Last Admin Trade Name Freq PRN Reason Stop Dose Admin Sodium Chloride 1,000 mls @ 999 mls/hr 10/28/20 15:42 10/28/20 15:59 Sodium Chloride 0.9% 1000 Ml IV 10/28/20 16:42 999 mls/hr .Q1H1M STA Administration Sodium Chloride Confirm 10/28/20 15:54 Sodium Chloride 0.9% 1000 Ml Administered 10/28/20 15:55 Dose 1,000 mls @ ud .ROUTE .STK-MED ONE Triamcinolone Acetonide 1 ml 10/28/20 15:50 08/15/21 16:24 Kenalog 0.1% Lotion TP 10/28/20 15:51 Not Given STAT ONE Lab/Rad Data: Laboratory Result Diagrams 10/28/20 15:00 10/28/20 15:00 Laboratory Results 10/28/20 10/28/20 10/28/20 Range/Units 16:00 15:57 15:42 WBC (4.0-10.5) K/mm3 RBC (4.1-5.4) M/mm3 Hgb (12.0-16.0) gm/dl Hct (35-47) % MCV (78-100) fl MCH (26-32) pg MCHC (32-36) g/dl RDW (11.5-14.0) % Plt Count (150-450) K/mm3 MPV (7.5-11.0) fl Gran % (36.0-66.0) % Eos # (Auto) (0-0.5) Absolute Lymphs (auto) (1.0-4.6) Absolute Monos (auto) (0.0-1.3) Lymphocytes % (24.0-44.0) % Monocytes % (0.0-12.0) % Eosinophils % (0.00-5.0) % Basophils % (0.0-0.4) % Absolute Granulocytes (1.4-6.9) Basophils # (0-0.4) D-Dimer 873 H* (215-500) ng/mL Sodium (137-145) mmol/L Potassium (3.5-5.1) mmol/L Chloride (98-107) mmol/L Carbon Dioxide (22-30) mmol/L Anion Gap (5-15) MEQ/L BUN (7-17) mg/dL Creatinine (0.52-1.04) mg/dL Estimated GFR ML/MIN Glucose (74-106) mg/dL Lactic Acid 1.6 (0.4-2.0) Calcium (8.4-10.2) mg/dL Total Bilirubin (0.2-1.3) mg/dL AST (14-36) U/L ALT (0-35) U/L Alkaline Phosphatase (38-126) U/L Troponin I (0.000-0.034) ng/mL NT-Pro-B Natriuret Pep (0-1800) pg/mL Serum Total Protein (6.3-8.2) g/dL Albumin (3.5-5.0) g/dL Amylase (30-110) U/L Lipase (23-300) U/L Urine Color STRAW (YELLOW) Urine Appearance CLEAR (CLEAR) Urine pH 6.0 (5-6) Ur Specific [place] 1.004 (1.005-1.025) Urine Protein NEGATIVE (Negative) Urine Ketones NEGATIVE (NEGATIVE) Urine Blood NEGATIVE (0-5) Buster/ul Urine Nitrite NEGATIVE (NEGATIVE) Urine Bilirubin NEGATIVE (NEGATIVE) Urine Urobilinogen NEGATIVE (0-1) mg/dL Ur Leukocyte Esterase NEGATIVE (NEGATIVE) Urine WBC (Auto) 0-2 (0-5) /HPF Urine RBC (Auto) NONE (0-2) /HPF U Epithel Cells (Auto) NONE (FEW) /HPF Urine Bacteria (Auto) RARE (NEGATIVE) /HPF Urine Culture Reflexed NO (NO) Urine Glucose NEGATIVE (NEGATIVE) mg/dL SARS-CoV-2 (PCR) (NEGATIVE) 10/28/20 10/28/20 10/28/20 Range/Units 15:00 15:00 15:00 WBC 5.1 (4.0-10.5) K/mm3 RBC 4.40 (4.1-5.4) M/mm3 Hgb 13.4 (12.0-16.0) gm/dl Hct 41.6 (35-47) % MCV 94.5 (78-100) fl MCH 30.5 (26-32) pg MCHC 32.2 (32-36) g/dl RDW 13.8 (11.5-14.0) % Plt Count 319 (150-450) K/mm3 MPV 10.5 (7.5-11.0) fl Gran % 51.2 (36.0-66.0) % Eos # (Auto) 0.22 (0-0.5) Absolute Lymphs (auto) 1.73 (1.0-4.6) Absolute Monos (auto) 0.50 (0.0-1.3) Lymphocytes % 33.9 (24.0-44.0) % Monocytes % 9.8 (0.0-12.0) % Eosinophils % 4.3 (0.00-5.0) % Basophils % 0.8 (0.0-0.4) % Absolute Granulocytes 2.61 (1.4-6.9) Basophils # 0.04 (0-0.4) D-Dimer (215-500) ng/mL Sodium 140 (137-145) mmol/L Potassium 3.8 (3.5-5.1) mmol/L Chloride 103 (98-107) mmol/L Carbon Dioxide 28 (22-30) mmol/L Anion Gap 12.2 (5-15) MEQ/L BUN 15 (7-17) mg/dL Creatinine 0.82 (0.52-1.04) mg/dL Estimated GFR > 60.0 ML/MIN Glucose 94 (74-106) mg/dL Lactic Acid (0.4-2.0) Calcium 9.8 (8.4-10.2) mg/dL Total Bilirubin 0.40 (0.2-1.3) mg/dL AST 44 H (14-36) U/L ALT 46 H (0-35) U/L Alkaline Phosphatase 73 (38-126) U/L Troponin I < 0.012 (0.000-0.034) ng/mL NT-Pro-B Natriuret Pep 58.2 (0-1800) pg/mL Serum Total Protein 7.1 (6.3-8.2) g/dL Albumin 4.3 (3.5-5.0) g/dL Amylase 74 (30-110) U/L Lipase 99 (23-300) U/L Urine Color (YELLOW) Urine Appearance (CLEAR) Urine pH (5-6) Ur Specific [place] (1.005-1.025) Urine Protein (Negative) Urine Ketones (NEGATIVE) Urine Blood (0-5) Buster/ul Urine Nitrite (NEGATIVE) Urine Bilirubin (NEGATIVE) Urine Urobilinogen (0-1) mg/dL Ur Leukocyte Esterase (NEGATIVE) Urine WBC (Auto) (0-5) /HPF Urine RBC (Auto) (0-2) /HPF U Epithel Cells (Auto) (FEW) /HPF Urine Bacteria (Auto) (NEGATIVE) /HPF Urine Culture Reflexed (NO) Urine Glucose (NEGATIVE) mg/dL SARS-CoV-2 (PCR) (NEGATIVE) 10/28/20 Range/Units 14:30 WBC (4.0-10.5) K/mm3 RBC (4.1-5.4) M/mm3 Hgb (12.0-16.0) gm/dl Hct (35-47) % MCV (78-100) fl MCH (26-32) pg MCHC (32-36) g/dl RDW (11.5-14.0) % Plt Count (150-450) K/mm3 MPV (7.5-11.0) fl Gran % (36.0-66.0) % Eos # (Auto) (0-0.5) Absolute Lymphs (auto) (1.0-4.6) Absolute Monos (auto) (0.0-1.3) Lymphocytes % (24.0-44.0) % Monocytes % (0.0-12.0) % Eosinophils % (0.00-5.0) % Basophils % (0.0-0.4) % Absolute Granulocytes (1.4-6.9) Basophils # (0-0.4) D-Dimer (215-500) ng/mL Sodium (137-145) mmol/L Potassium (3.5-5.1) mmol/L Chloride (98-107) mmol/L Carbon Dioxide (22-30) mmol/L Anion Gap (5-15) MEQ/L BUN (7-17) mg/dL Creatinine (0.52-1.04) mg/dL Estimated GFR ML/MIN Glucose (74-106) mg/dL Lactic Acid (0.4-2.0) Calcium (8.4-10.2) mg/dL Total Bilirubin (0.2-1.3) mg/dL AST (14-36) U/L ALT (0-35) U/L Alkaline Phosphatase (38-126) U/L Troponin I (0.000-0.034) ng/mL NT-Pro-B Natriuret Pep (0-1800) pg/mL Serum Total Protein (6.3-8.2) g/dL Albumin (3.5-5.0) g/dL Amylase (30-110) U/L Lipase (23-300) U/L Urine Color (YELLOW) Urine Appearance (CLEAR) Urine pH (5-6) Ur Specific [place] (1.005-1.025) Urine Protein (Negative) Urine Ketones (NEGATIVE) Urine Blood (0-5) Buster/ul Urine Nitrite (NEGATIVE) Urine Bilirubin (NEGATIVE) Urine Urobilinogen (0-1) mg/dL Ur Leukocyte Esterase (NEGATIVE) Urine WBC (Auto) (0-5) /HPF Urine RBC (Auto) (0-2) /HPF U Epithel Cells (Auto) (FEW) /HPF Urine Bacteria (Auto) (NEGATIVE) /HPF Urine Culture Reflexed (NO) Urine Glucose (NEGATIVE) mg/dL SARS-CoV-2 (PCR) NEGATIVE (NEGATIVE) - Progress Progress: unchanged Air Movement: good Blood Culture(s) Obtained: No Antibiotics given: No Discussed with DrMariah: Nicholas Will see patient in: hospital (observation) - Departure Departure Disposition: Home Clinical Impression: Chest pain, rule out acute myocardial infarction Condition: Stable Critical Care Time: No Critical Care Time(excluding separately billable procedures): Critical 30-74 m ins Referrals: DWIGHT MARTÍNEZ [Primary Care Provider] -
[2020-10-28] MEDS ORDERED: MAALOX ES 30 ML UNIT DOSE PO PRN (18:09)
[2020-10-28] MEDS ORDERED: Nitrostat 0.4 MG Tablet SL PRN (18:09)
[2020-10-28] MEDS ORDERED: Senokot-S Tablet PO PRN ×2 (18:09→18:13)
[2020-10-28] MEDS ORDERED: Zofran 4 MG/2 ML VIAL IV PRN (18:09)
[2020-10-28] MEDS ORDERED: TYLENOL 325 MG PO PRN (18:09)
[2020-10-28] MEDS ORDERED: MILK OF MAGNESIA 30 ML PO PRN (18:09)
[2020-10-28] MEDS ORDERED: Sodium Chloride 0.9% 500 ML 500 ML IV SCH (18:15)
[2020-10-28] MEDS ORDERED: PLAVIX 75 MG Tablet PO ONE (21:00)
[2020-10-28] MEDS ORDERED: PREMARIN PO ONE (21:00)
[2020-10-28] MEDS ORDERED: ECOTRIN 81 MG PO ONE (21:00)
[2020-10-28] MEDS ORDERED: SYNTHROID 75 MCG PO ONE (21:00)
[2020-10-28] MEDS ORDERED: Protonix 20MG Tablet PO ONE (21:00)
--- NOTE | 2020-10-28 21:08 | XRAY ---
Indication: Headache, weakness, chest pain, nausea, and vomiting. Multiple contiguous axial images obtained through the head without contrast. Comparison: August 05, 2019. Normal appearing brain parenchyma, ventricles, and bony calvarium for patient's age. Visualized paranasal sinuses and mastoid air cells are clear. Impression: Continued normal CT head without contrast exam. Comment: Preliminary interpretation made by [facility]. No critical discrepancy.
--- NOTE | 2020-10-28 21:10 | XRAY ---
Indication: Headache, weakness, chest pain, nausea, vomiting, and elevated d-dimer. Multiple contiguous axial images obtained through the chest using 100 cc Isovue 370 contrast and PE protocol. Comparison: August 05, 2019. There is good opacification of the pulmonary arteries to include the lobar and segmental branches. No pulmonary embolus. Heart not enlarged. Aorta normal in course and caliber. Stable tiny mediastinal calcified nodes. No pathologic mediastinal/hilar lymphadenopathy. Lungs demonstrates mild bilateral dependent atelectasis. Stable small left lower lobe calcified granuloma. No new pulmonary mass, infiltrate, or effusion. Bony thorax intact again with mild degenerative changes throughout the spine. Impression: 1. Continued negative pulmonary embolus. No new/acute cardiopulmonary abnormalities. 2. Again old granulomatous disease. Comment: Preliminary interpretation made by C. No critical discrepancy.
[2020-10-28] MEDS ORDERED: NYSTOP POWDER 15 GM TP SCH (22:00)
[2020-10-29 06:02] LABS: Risk Ratio 2.5
[2020-10-29 08:19] VITALS: BP 108/57; PULSE 65; O2SAT 95
--- NOTE | 2020-10-29 09:01 | PCM.SSS ---
History of Present Illness - Chief Complaint Chief Complaint: Chest Pain r/o IN History of Present Illness: is a 75 year old female patient of Dr Андрей Amaro, she presented with acute onset of chest pain, she also had some vague complaints of feeling poorly and had a near syncopal episode after nitro due to hypotension, she has no pain this morning. no dizziness or lightheadedness, she follows with a flour mixer helper at [facility] in [place] Dr Grubbs and just saw him last week. she has had several similar incidents of pain over the last 2 years and never required a cath or intervention and IN was ruled out each time. - Review of Systems Constitutional: No Fever, No Chills Cardiac: Chest Pain (resolved) Abdominal/Gastrointestinal: No Abdominal Pain, No Nausea, No Vomiting, No Diarrhea Neurological: Dizziness (resolved), No Focal Weakness, No Gait Changes Psychological: No Symptoms All Other Systems: Reviewed and Negative Medications & Allergies Home Medications: Home Medication List Estrogens,Conjugated [Premarin] 0.625 mg PO DAILY 10/04/11 [History Confirmed 10/28/20] Levothyroxine Sodium [Synthroid] 75 mcg PO DAILY 06/26/16 [History Confirmed 10/28/20] Aspirin 81 mg PO HS 05/09/17 [History Confirmed 10/28/20] Ergocalciferol (Vitamin D2) [Vitamin D] 50,000 cap PO WEEKLY 05/09/17 [History Confirmed 10/28/20] Clopidogrel Bisulfate 75 mg [PLAVIX 75 MG Tablet] 75 mg PO DAILY 05/22/19 [History Confirmed 10/28/20] Hydrocodone/Acetaminophen [Hydrocodone-Acetamin 5-325 mg] 1 each PO DAILY PRN PRN 05/22/19 [History Confirmed 10/28/20] Pantoprazole 20 mg [Protonix 20MG Tablet] 20 mg PO HS 05/22/19 [History Confirmed 10/28/20] Bempedoic Acid/Ezetimibe [Nexlizet 180-10 mg Tablet] 1 each PO DAILY 08/08/20 [History Confirmed 10/28/20] Duloxetine HCl [Cymbalta] 20 mg PO DAILY 08/08/20 [History Confirmed 10/28/20] Fluticasone Propionate [Flonase NASAL] 1 gm NS HS 08/08/20 [History Confirmed 10/28/20] Linaclotide [Linzess] 72 mcg PO DAILY PRN PRN 08/08/20 [History Confirmed 10/28/20] Nitroglycerin [Nitrostat] 0.4 mg SL Q5MIN PRN MR X 3 PRN 08/08/20 [History Confirmed 10/28/20] Ubidecarenone [Co Q-10] 100 mg PO DAILY 08/08/20 [History Confirmed 10/28/20] Vit B Cmplx #9/FA/Vit C/Vit E [Renatabs Tablet] 1 each PO DAILY PRN PRN 08/08/20 [History Confirmed 10/28/20] Albuterol 8 gm Mdi Hfa [Ventolin Hfa MDI] 18 gm IH 08/09/20 [History Confirmed 10/28/20] Allergies/Adverse Reactions: Allergies Allergy/AdvReac Type Severity Reaction Status Date / Time azelastine HCl [From Astelin] Allergy Mild Verified 10/28/20 14:03 clarithromycin [From Biaxin] Allergy Mild Verified 10/28/20 14:03 valdecoxib [From Bextra] Allergy Mild Verified 10/28/20 14:03 moxifloxacin Allergy Verified 10/28/20 14:03 oyster extract Allergy Verified 10/28/20 19:43 - Past Medical History Past Medical History: Yes Neurological History: Peripheral Neuropathy ENT History: No Pertinent History, Other Cardiac History: Coronary Artery Disease, High Cholesterol, Myocardial Infarction (IN) Respiratory History: Asthma, COPD Endocrine Medical History: Hypothyroidism Musculoskelatal History: Arthritis, Degenerative Disk Disease, Osteoarthritis GI Medical History: Gallbladder Disease, Pancreatitis History: No Pertinent History Pyscho-Social History: No Pertinent History Reproductive Disorders: No Pertinent History Comment: Thyroid problems, heart blockage, 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 - Female History Are you now?: No - Past Surgical History Past Surgical History: Yes Neuro Surgical History: No Pertinent History Cardiac History: Cardiac Catheterization Respiratory Surgery: No Pertinent History GI Surgical History: Cholecystectomy Genitourinary Surgical Hx: No Pertinent History Musculskeletal Surgical Hx: No Pertinent History Female Surgical History: Hysterectomy Other Surgical History: ERCP - Social History Smoking Status: Never smoker Exposure to second hand smoke: No Alcohol: None Drug Use: none - Physical Exam Vital Signs: Vital Signs - 24 hr Temp Pulse Resp BP Pulse Ox 10/29/20 08:00 96.8 F 65 12 108/57 95 10/29/20 04:00 98.2 F 59 L 16 104/55 96 10/29/20 00:00 98.6 F 64 14 132/75 96 10/28/20 23:08 99 10/28/20 23:04 64 12 99 10/28/20 20:00 97.6 F 68 16 142/61 99 10/28/20 18:08 99 10/28/20 17:09 69 18 120/71 99 10/28/20 15:27 69 20 120/71 99 10/28/20 13:54 97.2 F 69 20 120/71 99 General Appearance: no apparent distress Neurologic Exam: alert, 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, cooperative Eye Exam: PERRL/EOMI, eyes nml inspection Neck Exam: normal inspection, non-tender, supple, full range of motion Respiratory Exam: normal breath sounds, lungs clear, No respiratory distress Cardiovascular Exam: regular rate/rhythm, normal heart sounds, normal peripheral pulses Gastrointestinal/Abdomen Exam: soft, normal bowel sounds, No tenderness, No mass Extremity Exam: normal inspection, normal range of motion, pelvis stable Skin Exam: normal color, warm, dry, No rash Results - Labs Lab/Micro Results: Lab Results-Last 24 Hours 10/28/20 10/28/20 10/28/20 Range/Units 14:30 15:00 15:00 WBC 5.1 (4.0-10.5) K/mm3 RBC 4.40 (4.1-5.4) M/mm3 Hgb 13.4 (12.0-16.0) gm/dl Hct 41.6 (35-47) % MCV 94.5 (78-100) fl MCH 30.5 (26-32) pg MCHC 32.2 (32-36) g/dl RDW 13.8 (11.5-14.0) % Plt Count 319 (150-450) K/mm3 MPV 10.5 (7.5-11.0) fl Gran % 51.2 (36.0-66.0) % Eos # (Auto) 0.22 (0-0.5) Absolute Lymphs (auto) 1.73 (1.0-4.6) Absolute Monos (auto) 0.50 (0.0-1.3) Lymphocytes % 33.9 (24.0-44.0) % Monocytes % 9.8 (0.0-12.0) % Eosinophils % 4.3 (0.00-5.0) % Basophils % 0.8 (0.0-0.4) % Absolute Granulocytes 2.61 (1.4-6.9) Basophils # 0.04 (0-0.4) D-Dimer (215-500) ng/mL Sodium 140 (137-145) mmol/L Potassium 3.8 (3.5-5.1) mmol/L Chloride 103 (98-107) mmol/L Carbon Dioxide 28 (22-30) mmol/L Anion Gap 12.2 (5-15) MEQ/L BUN 15 (7-17) mg/dL Creatinine 0.82 (0.52-1.04) mg/dL Estimated GFR > 60.0 ML/MIN Glucose 94 (74-106) mg/dL Lactic Acid (0.4-2.0) Calcium 9.8 (8.4-10.2) mg/dL Total Bilirubin 0.40 (0.2-1.3) mg/dL AST 44 H (14-36) U/L ALT 46 H (0-35) U/L Alkaline Phosphatase 73 (38-126) U/L Troponin I (0.000-0.034) ng/mL NT-Pro-B Natriuret Pep 58.2 (0-1800) pg/mL Serum Total Protein 7.1 (6.3-8.2) g/dL Albumin 4.3 (3.5-5.0) g/dL Triglycerides (30-150) mg/dL Cholesterol (50-200) mg/dL LDL Cholesterol (30-100) mg/dL HDL Cholesterol (40-60) mg/dL Heart Disease Risk Ratio Amylase 74 (30-110) U/L Lipase 99 (23-300) U/L Urine Color (YELLOW) Urine Appearance (CLEAR) Urine pH (5-6) Ur Specific [place] (1.005-1.025) Urine Protein (Negative) Urine Ketones (NEGATIVE) Urine Blood (0-5) Buster/ul Urine Nitrite (NEGATIVE) Urine Bilirubin (NEGATIVE) Urine Urobilinogen (0-1) mg/dL Ur Leukocyte Esterase (NEGATIVE) Urine WBC (Auto) (0-5) /HPF Urine RBC (Auto) (0-2) /HPF U Epithel Cells (Auto) (FEW) /HPF Urine Bacteria (Auto) (NEGATIVE) /HPF Urine Culture Reflexed (NO) Urine Glucose (NEGATIVE) mg/dL SARS-CoV-2 (PCR) NEGATIVE (NEGATIVE) 10/28/20 10/28/20 10/28/20 Range/Units 15:00 15:42 15:57 WBC (4.0-10.5) K/mm3 RBC (4.1-5.4) M/mm3 Hgb (12.0-16.0) gm/dl Hct (35-47) % MCV (78-100) fl MCH (26-32) pg MCHC (32-36) g/dl RDW (11.5-14.0) % Plt Count (150-450) K/mm3 MPV (7.5-11.0) fl Gran % (36.0-66.0) % Eos # (Auto) (0-0.5) Absolute Lymphs (auto) (1.0-4.6) Absolute Monos (auto) (0.0-1.3) Lymphocytes % (24.0-44.0) % Monocytes % (0.0-12.0) % Eosinophils % (0.00-5.0) % Basophils % (0.0-0.4) % Absolute Granulocytes (1.4-6.9) Basophils # (0-0.4) D-Dimer (215-500) ng/mL Sodium (137-145) mmol/L Potassium (3.5-5.1) mmol/L Chloride (98-107) mmol/L Carbon Dioxide (22-30) mmol/L Anion Gap (5-15) MEQ/L BUN (7-17) mg/dL Creatinine (0.52-1.04) mg/dL Estimated GFR ML/MIN Glucose (74-106) mg/dL Lactic Acid 1.6 (0.4-2.0) Calcium (8.4-10.2) mg/dL Total Bilirubin (0.2-1.3) mg/dL AST (14-36) U/L ALT (0-35) U/L Alkaline Phosphatase (38-126) U/L Troponin I < 0.012 (0.000-0.034) ng/mL NT-Pro-B Natriuret Pep (0-1800) pg/mL Serum Total Protein (6.3-8.2) g/dL Albumin (3.5-5.0) g/dL Triglycerides (30-150) mg/dL Cholesterol (50-200) mg/dL LDL Cholesterol (30-100) mg/dL HDL Cholesterol (40-60) mg/dL Heart Disease Risk Ratio Amylase (30-110) U/L Lipase (23-300) U/L Urine Color STRAW (YELLOW) Urine Appearance CLEAR (CLEAR) Urine pH 6.0 (5-6) Ur Specific [place] 1.004 (1.005-1.025) Urine Protein NEGATIVE (Negative) Urine Ketones NEGATIVE (NEGATIVE) Urine Blood NEGATIVE (0-5) Buster/ul Urine Nitrite NEGATIVE (NEGATIVE) Urine Bilirubin NEGATIVE (NEGATIVE) Urine Urobilinogen NEGATIVE (0-1) mg/dL Ur Leukocyte Esterase NEGATIVE (NEGATIVE) Urine WBC (Auto) 0-2 (0-5) /HPF Urine RBC (Auto) NONE (0-2) /HPF U Epithel Cells (Auto) NONE (FEW) /HPF Urine Bacteria (Auto) RARE (NEGATIVE) /HPF Urine Culture Reflexed NO (NO) Urine Glucose NEGATIVE (NEGATIVE) mg/dL SARS-CoV-2 (PCR) (NEGATIVE) 10/28/20 10/28/20 10/28/20 Range/Units 16:00 19:09 21:54 WBC (4.0-10.5) K/mm3 RBC (4.1-5.4) M/mm3 Hgb (12.0-16.0) gm/dl Hct (35-47) % MCV (78-100) fl MCH (26-32) pg MCHC (32-36) g/dl RDW (11.5-14.0) % Plt Count (150-450) K/mm3 MPV (7.5-11.0) fl Gran % (36.0-66.0) % Eos # (Auto) (0-0.5) Absolute Lymphs (auto) (1.0-4.6) Absolute Monos (auto) (0.0-1.3) Lymphocytes % (24.0-44.0) % Monocytes % (0.0-12.0) % Eosinophils % (0.00-5.0) % Basophils % (0.0-0.4) % Absolute Granulocytes (1.4-6.9) Basophils # (0-0.4) D-Dimer 873 H* (215-500) ng/mL Sodium (137-145) mmol/L Potassium (3.5-5.1) mmol/L Chloride (98-107) mmol/L Carbon Dioxide (22-30) mmol/L Anion Gap (5-15) MEQ/L BUN (7-17) mg/dL Creatinine (0.52-1.04) mg/dL Estimated GFR ML/MIN Glucose (74-106) mg/dL Lactic Acid (0.4-2.0) Calcium (8.4-10.2) mg/dL Total Bilirubin (0.2-1.3) mg/dL AST (14-36) U/L ALT (0-35) U/L Alkaline Phosphatase (38-126) U/L Troponin I < 0.012 < 0.012 (0.000-0.034) ng/mL NT-Pro-B Natriuret Pep (0-1800) pg/mL Serum Total Protein (6.3-8.2) g/dL Albumin (3.5-5.0) g/dL Triglycerides (30-150) mg/dL Cholesterol (50-200) mg/dL LDL Cholesterol (30-100) mg/dL HDL Cholesterol (40-60) mg/dL Heart Disease Risk Ratio Amylase (30-110) U/L Lipase (23-300) U/L Urine Color (YELLOW) Urine Appearance (CLEAR) Urine pH (5-6) Ur Specific [place] (1.005-1.025) Urine Protein (Negative) Urine Ketones (NEGATIVE) Urine Blood (0-5) Buster/ul Urine Nitrite (NEGATIVE) Urine Bilirubin (NEGATIVE) Urine Urobilinogen (0-1) mg/dL Ur Leukocyte Esterase (NEGATIVE) Urine WBC (Auto) (0-5) /HPF Urine RBC (Auto) (0-2) /HPF U Epithel Cells (Auto) (FEW) /HPF Urine Bacteria (Auto) (NEGATIVE) /HPF Urine Culture Reflexed (NO) Urine Glucose (NEGATIVE) mg/dL SARS-CoV-2 (PCR) (NEGATIVE) 10/29/20 10/29/20 10/29/20 Range/Units 00:45 05:00 05:00 WBC (4.0-10.5) K/mm3 RBC (4.1-5.4) M/mm3 Hgb (12.0-16.0) gm/dl Hct (35-47) % MCV (78-100) fl MCH (26-32) pg MCHC (32-36) g/dl RDW (11.5-14.0) % Plt Count (150-450) K/mm3 MPV (7.5-11.0) fl Gran % (36.0-66.0) % Eos # (Auto) (0-0.5) Absolute Lymphs (auto) (1.0-4.6) Absolute Monos (auto) (0.0-1.3) Lymphocytes % (24.0-44.0) % Monocytes % (0.0-12.0) % Eosinophils % (0.00-5.0) % Basophils % (0.0-0.4) % Absolute Granulocytes (1.4-6.9) Basophils # (0-0.4) D-Dimer (215-500) ng/mL Sodium (137-145) mmol/L Potassium (3.5-5.1) mmol/L Chloride (98-107) mmol/L Carbon Dioxide (22-30) mmol/L Anion Gap (5-15) MEQ/L BUN (7-17) mg/dL Creatinine (0.52-1.04) mg/dL Estimated GFR ML/MIN Glucose (74-106) mg/dL Lactic Acid (0.4-2.0) Calcium (8.4-10.2) mg/dL Total Bilirubin (0.2-1.3) mg/dL AST (14-36) U/L ALT (0-35) U/L Alkaline Phosphatase (38-126) U/L Troponin I < 0.012 < 0.012 (0.000-0.034) ng/mL NT-Pro-B Natriuret Pep (0-1800) pg/mL Serum Total Protein (6.3-8.2) g/dL Albumin (3.5-5.0) g/dL Triglycerides 138 (30-150) mg/dL Cholesterol 130 (50-200) mg/dL LDL Cholesterol 54 (30-100) mg/dL HDL Cholesterol 52 (40-60) mg/dL Heart Disease Risk Ratio 2.5 Amylase (30-110) U/L Lipase (23-300) U/L Urine Color (YELLOW) Urine Appearance (CLEAR) Urine pH (5-6) Ur Specific [place] (1.005-1.025) Urine Protein (Negative) Urine Ketones (NEGATIVE) Urine Blood (0-5) Buster/ul Urine Nitrite (NEGATIVE) Urine Bilirubin (NEGATIVE) Urine Urobilinogen (0-1) mg/dL Ur Leukocyte Esterase (NEGATIVE) Urine WBC (Auto) (0-5) /HPF Urine RBC (Auto) (0-2) /HPF U Epithel Cells (Auto) (FEW) /HPF Urine Bacteria (Auto) (NEGATIVE) /HPF Urine Culture Reflexed (NO) Urine Glucose (NEGATIVE) mg/dL SARS-CoV-2 (PCR) (NEGATIVE) - Radiology Impressions Radiology Exams & Impressions: Radiology Procedures Category Date Time Status CHEST WITH CONTRAST [CT] Stat Exams 10/28/20 16:34 Completed HEAD WITHOUT CONTRAST [CT] Stat Exams 10/28/20 16:13 Completed - Other Procedures and Tests Respiratory Therapy 10/30/20 05:00 EKG ROUTINE 10/31/20 05:00 EKG ROUTINE Assessment/Plan (1) Chest pain Current Visit: No Status: Acute Qualifiers: Chest pain type: other chest pain Qualified Code(s): R07.89 - Other chest pain; R07.8 - Other chest pain Assessment & Plan: IN ruled out, needs to f/u with her flour mixer helper, continue current meds including asa 81mg daily Code(s): R07.9 - CHEST PAIN, UNSPECIFIED Hospital Summary - Vitals & Intake/Output Vital Signs: Vital Signs Temperature 96.8 F 10/29/20 08:00 Pulse Rate 65 10/29/20 08:00 Respiratory Rate 12 10/29/20 08:00 Blood Pressure 108/57 10/29/20 08:00 O2 Sat by Pulse Oximetry 95 10/29/20 08:00 Intake & Output: Intake & Output 10/26/20 10/27/20 10/28/20 10/29/20 11:59 11:59 11:59 11:59 Intake Total 200 Balance 200 Weight 84.4 kg - Lab Result Diagrams: 10/28/20 15:00 10/28/20 15:00 Lab Results-Last 24 Hrs: Lab Results-Last 24 Hours 10/28/20 10/28/20 10/28/20 Range/Units 14:30 15:00 15:00 WBC 5.1 (4.0-10.5) K/mm3 RBC 4.40 (4.1-5.4) M/mm3 Hgb 13.4 (12.0-16.0) gm/dl Hct 41.6 (35-47) % MCV 94.5 (78-100) fl MCH 30.5 (26-32) pg MCHC 32.2 (32-36) g/dl RDW 13.8 (11.5-14.0) % Plt Count 319 (150-450) K/mm3 MPV 10.5 (7.5-11.0) fl Gran % 51.2 (36.0-66.0) % Eos # (Auto) 0.22 (0-0.5) Absolute Lymphs (auto) 1.73 (1.0-4.6) Absolute Monos (auto) 0.50 (0.0-1.3) Lymphocytes % 33.9 (24.0-44.0) % Monocytes % 9.8 (0.0-12.0) % Eosinophils % 4.3 (0.00-5.0) % Basophils % 0.8 (0.0-0.4) % Absolute Granulocytes 2.61 (1.4-6.9) Basophils # 0.04 (0-0.4) D-Dimer (215-500) ng/mL Sodium 140 (137-145) mmol/L Potassium 3.8 (3.5-5.1) mmol/L Chloride 103 (98-107) mmol/L Carbon Dioxide 28 (22-30) mmol/L Anion Gap 12.2 (5-15) MEQ/L BUN 15 (7-17) mg/dL Creatinine 0.82 (0.52-1.04) mg/dL Estimated GFR > 60.0 ML/MIN Glucose 94 (74-106) mg/dL Lactic Acid (0.4-2.0) Calcium 9.8 (8.4-10.2) mg/dL Total Bilirubin 0.40 (0.2-1.3) mg/dL AST 44 H (14-36) U/L ALT 46 H (0-35) U/L Alkaline Phosphatase 73 (38-126) U/L Troponin I (0.000-0.034) ng/mL NT-Pro-B Natriuret Pep 58.2 (0-1800) pg/mL Serum Total Protein 7.1 (6.3-8.2) g/dL Albumin 4.3 (3.5-5.0) g/dL Triglycerides (30-150) mg/dL Cholesterol (50-200) mg/dL LDL Cholesterol (30-100) mg/dL HDL Cholesterol (40-60) mg/dL Heart Disease Risk Ratio Amylase 74 (30-110) U/L Lipase 99 (23-300) U/L Urine Color (YELLOW) Urine Appearance (CLEAR) Urine pH (5-6) Ur Specific [place] (1.005-1.025) Urine Protein (Negative) Urine Ketones (NEGATIVE) Urine Blood (0-5) Buster/ul Urine Nitrite (NEGATIVE) Urine Bilirubin (NEGATIVE) Urine Urobilinogen (0-1) mg/dL Ur Leukocyte Esterase (NEGATIVE) Urine WBC (Auto) (0-5) /HPF Urine RBC (Auto) (0-2) /HPF U Epithel Cells (Auto) (FEW) /HPF Urine Bacteria (Auto) (NEGATIVE) /HPF Urine Culture Reflexed (NO) Urine Glucose (NEGATIVE) mg/dL SARS-CoV-2 (PCR) NEGATIVE (NEGATIVE) 10/28/20 10/28/20 10/28/20 Range/Units 15:00 15:42 15:57 WBC (4.0-10.5) K/mm3 RBC (4.1-5.4) M/mm3 Hgb (12.0-16.0) gm/dl Hct (35-47) % MCV (78-100) fl MCH (26-32) pg MCHC (32-36) g/dl RDW (11.5-14.0) % Plt Count (150-450) K/mm3 MPV (7.5-11.0) fl Gran % (36.0-66.0) % Eos # (Auto) (0-0.5) Absolute Lymphs (auto) (1.0-4.6) Absolute Monos (auto) (0.0-1.3) Lymphocytes % (24.0-44.0) % Monocytes % (0.0-12.0) % Eosinophils % (0.00-5.0) % Basophils % (0.0-0.4) % Absolute Granulocytes (1.4-6.9) Basophils # (0-0.4) D-Dimer (215-500) ng/mL Sodium (137-145) mmol/L Potassium (3.5-5.1) mmol/L Chloride (98-107) mmol/L Carbon Dioxide (22-30) mmol/L Anion Gap (5-15) MEQ/L BUN (7-17) mg/dL Creatinine (0.52-1.04) mg/dL Estimated GFR ML/MIN Glucose (74-106) mg/dL Lactic Acid 1.6 (0.4-2.0) Calcium (8.4-10.2) mg/dL Total Bilirubin (0.2-1.3) mg/dL AST (14-36) U/L ALT (0-35) U/L Alkaline Phosphatase (38-126) U/L Troponin I < 0.012 (0.000-0.034) ng/mL NT-Pro-B Natriuret Pep (0-1800) pg/mL Serum Total Protein (6.3-8.2) g/dL Albumin (3.5-5.0) g/dL Triglycerides (30-150) mg/dL Cholesterol (50-200) mg/dL LDL Cholesterol (30-100) mg/dL HDL Cholesterol (40-60) mg/dL Heart Disease Risk Ratio Amylase (30-110) U/L Lipase (23-300) U/L Urine Color STRAW (YELLOW) Urine Appearance CLEAR (CLEAR) Urine pH 6.0 (5-6) Ur Specific [place] 1.004 (1.005-1.025) Urine Protein NEGATIVE (Negative) Urine Ketones NEGATIVE (NEGATIVE) Urine Blood NEGATIVE (0-5) Buster/ul Urine Nitrite NEGATIVE (NEGATIVE) Urine Bilirubin NEGATIVE (NEGATIVE) Urine Urobilinogen NEGATIVE (0-1) mg/dL Ur Leukocyte Esterase NEGATIVE (NEGATIVE) Urine WBC (Auto) 0-2 (0-5) /HPF Urine RBC (Auto) NONE (0-2) /HPF U Epithel Cells (Auto) NONE (FEW) /HPF Urine Bacteria (Auto) RARE (NEGATIVE) /HPF Urine Culture Reflexed NO (NO) Urine Glucose NEGATIVE (NEGATIVE) mg/dL SARS-CoV-2 (PCR) (NEGATIVE) 10/28/20 10/28/20 10/28/20 Range/Units 16:00 19:09 21:54 WBC (4.0-10.5) K/mm3 RBC (4.1-5.4) M/mm3 Hgb (12.0-16.0) gm/dl Hct (35-47) % MCV (78-100) fl MCH (26-32) pg MCHC (32-36) g/dl RDW (11.5-14.0) % Plt Count (150-450) K/mm3 MPV (7.5-11.0) fl Gran % (36.0-66.0) % Eos # (Auto) (0-0.5) Absolute Lymphs (auto) (1.0-4.6) Absolute Monos (auto) (0.0-1.3) Lymphocytes % (24.0-44.0) % Monocytes % (0.0-12.0) % Eosinophils % (0.00-5.0) % Basophils % (0.0-0.4) % Absolute Granulocytes (1.4-6.9) Basophils # (0-0.4) D-Dimer 873 H* (215-500) ng/mL Sodium (137-145) mmol/L Potassium (3.5-5.1) mmol/L Chloride (98-107) mmol/L Carbon Dioxide (22-30) mmol/L Anion Gap (5-15) MEQ/L BUN (7-17) mg/dL Creatinine (0.52-1.04) mg/dL Estimated GFR ML/MIN Glucose (74-106) mg/dL Lactic Acid (0.4-2.0) Calcium (8.4-10.2) mg/dL Total Bilirubin (0.2-1.3) mg/dL AST (14-36) U/L ALT (0-35) U/L Alkaline Phosphatase (38-126) U/L Troponin I < 0.012 < 0.012 (0.000-0.034) ng/mL NT-Pro-B Natriuret Pep (0-1800) pg/mL Serum Total Protein (6.3-8.2) g/dL Albumin (3.5-5.0) g/dL Triglycerides (30-150) mg/dL Cholesterol (50-200) mg/dL LDL Cholesterol (30-100) mg/dL HDL Cholesterol (40-60) mg/dL Heart Disease Risk Ratio Amylase (30-110) U/L Lipase (23-300) U/L Urine Color (YELLOW) Urine Appearance (CLEAR) Urine pH (5-6) Ur Specific [place] (1.005-1.025) Urine Protein (Negative) Urine Ketones (NEGATIVE) Urine Blood (0-5) Buster/ul Urine Nitrite (NEGATIVE) Urine Bilirubin (NEGATIVE) Urine Urobilinogen (0-1) mg/dL Ur Leukocyte Esterase (NEGATIVE) Urine WBC (Auto) (0-5) /HPF Urine RBC (Auto) (0-2) /HPF U Epithel Cells (Auto) (FEW) /HPF Urine Bacteria (Auto) (NEGATIVE) /HPF Urine Culture Reflexed (NO) Urine Glucose (NEGATIVE) mg/dL SARS-CoV-2 (PCR) (NEGATIVE) 10/29/20 10/29/20 10/29/20 Range/Units 00:45 05:00 05:00 WBC (4.0-10.5) K/mm3 RBC (4.1-5.4) M/mm3 Hgb (12.0-16.0) gm/dl Hct (35-47) % MCV (78-100) fl MCH (26-32) pg MCHC (32-36) g/dl RDW (11.5-14.0) % Plt Count (150-450) K/mm3 MPV (7.5-11.0) fl Gran % (36.0-66.0) % Eos # (Auto) (0-0.5) Absolute Lymphs (auto) (1.0-4.6) Absolute Monos (auto) (0.0-1.3) Lymphocytes % (24.0-44.0) % Monocytes % (0.0-12.0) % Eosinophils % (0.00-5.0) % Basophils % (0.0-0.4) % Absolute Granulocytes (1.4-6.9) Basophils # (0-0.4) D-Dimer (215-500) ng/mL Sodium (137-145) mmol/L Potassium (3.5-5.1) mmol/L Chloride (98-107) mmol/L Carbon Dioxide (22-30) mmol/L Anion Gap (5-15) MEQ/L BUN (7-17) mg/dL Creatinine (0.52-1.04) mg/dL Estimated GFR ML/MIN Glucose (74-106) mg/dL Lactic Acid (0.4-2.0) Calcium (8.4-10.2) mg/dL Total Bilirubin (0.2-1.3) mg/dL AST (14-36) U/L ALT (0-35) U/L Alkaline Phosphatase (38-126) U/L Troponin I < 0.012 < 0.012 (0.000-0.034) ng/mL NT-Pro-B Natriuret Pep (0-1800) pg/mL Serum Total Protein (6.3-8.2) g/dL Albumin (3.5-5.0) g/dL Triglycerides 138 (30-150) mg/dL Cholesterol 130 (50-200) mg/dL LDL Cholesterol 54 (30-100) mg/dL HDL Cholesterol 52 (40-60) mg/dL Heart Disease Risk Ratio 2.5 Amylase (30-110) U/L Lipase (23-300) U/L Urine Color (YELLOW) Urine Appearance (CLEAR) Urine pH (5-6) Ur Specific [place] (1.005-1.025) Urine Protein (Negative) Urine Ketones (NEGATIVE) Urine Blood (0-5) Buster/ul Urine Nitrite (NEGATIVE) Urine Bilirubin (NEGATIVE) Urine Urobilinogen (0-1) mg/dL Ur Leukocyte Esterase (NEGATIVE) Urine WBC (Auto) (0-5) /HPF Urine RBC (Auto) (0-2) /HPF U Epithel Cells (Auto) (FEW) /HPF Urine Bacteria (Auto) (NEGATIVE) /HPF Urine Culture Reflexed (NO) Urine Glucose (NEGATIVE) mg/dL SARS-CoV-2 (PCR) (NEGATIVE) - Radiology Exams Ordered Rad Exams-Entire Visit: Radiology Procedures Category Date Time Status CHEST WITH CONTRAST [CT] Stat Exams 10/28/20 16:34 Completed HEAD WITHOUT CONTRAST [CT] Stat Exams 10/28/20 16:13 Completed - Procedures and Test Procedures and Tests throughout Hospitalization: Therapy Orders & Screens 10/28/20 22:02 EKG ROUTINE Comment: 10/28/20 23:04 Respiratory Therapy Consult ONCE Comment: Reason For Exam: Diagnosis: Chest Pain r/o IN 10/29/20 05:00 EKG ROUTINE Comment: 10/30/20 05:00 EKG ROUTINE Comment: 10/31/20 05:00 EKG ROUTINE Comment: - Discharge Disposition: Home, Self-Care Condition: Stable Prescriptions: Continue Estrogens,Conjugated [Premarin] 0.625 mg PO DAILY Levothyroxine Sodium [Synthroid] 75 mcg PO DAILY Aspirin 81 mg PO HS Ergocalciferol (Vitamin D2) [Vitamin D] 50,000 cap PO WEEKLY Pantoprazole 20 mg [Protonix 20MG Tablet] 20 mg PO HS Hydrocodone/Acetaminophen [Hydrocodone-Acetamin 5-325 mg] 1 each PO DAILY PRN PRN PRN Reason: Pain Clopidogrel Bisulfate 75 mg [PLAVIX 75 MG Tablet] 75 mg PO DAILY Nitroglycerin [Nitrostat] 0.4 mg SL Q5MIN PRN MR X 3 PRN PRN Reason: Chest Pain Fluticasone Propionate [Flonase NASAL] 1 gm NS HS Bempedoic Acid/Ezetimibe [Nexlizet 180-10 mg Tablet] 1 each PO DAILY Duloxetine HCl [Cymbalta] 20 mg PO DAILY Linaclotide [Linzess] 72 mcg PO DAILY PRN PRN PRN Reason: Constipation Vit B Cmplx #9/FA/Vit C/Vit E [Renatabs Tablet] 1 each PO DAILY PRN PRN PRN Reason: supplement Ubidecarenone [Co Q-10] 100 mg PO DAILY Albuterol 8 gm Mdi Hfa [Ventolin Hfa MDI] 18 gm IH HS Follow up with: DENNIS GRUBBS MD [NON-STAFF PHY W/O PRIVILEGES] - 1 Week
[2020-10-29] MEDS ORDERED: Ecotrin 325 MG PO SCH (10:00)
== END 2020-10-29 10:50 | disposition home or self-care (01) ==
LOC: ED 13:49 → MED SURG 19:29
PROVIDERS: ADMIT Family Medicine; ATTEND Family Medicine
DX: R07.9 Chest pain, unspecified (principal); R51.9 Headache, unspecified; R19.7 Diarrhea, unspecified; R42 Dizziness and giddiness; R21 Rash and other nonspecific skin eruption; Z79.899 Other long term (current) drug therapy; Z79.01 Long term (current) use of anticoagulants; E03.9 Hypothyroidism, unspecified; Z20.822 Contact with and (suspected) exposure to COVID-19
CPT/HCPCS: 36000; 36415; 70450; 71260; 80053; 80061; 81001; 82150; 83605; 83690; 83721; 83880; 84484; 85025; 85379; 87040; 93005; 93268; 94760; 96360; 99284; G0378; U0003; A9270-GY

== ENCOUNTER 2022-02-09 10:55 | Emergency (ER) | payer MEDICARE, OTHER ==
--- NOTE | 2022-02-09 11:02 | ERPHSYRPT ---
- History of Present Illness Time Seen by Provider: 02/09/22 11:01 Source: patient, family Exam Limitations: no limitations Physician History: This is a right handed 76-year-old white female who was using a knife to cut food yesterday approximately 5 PM and she accidentally made a 1.5 cm laceration in her first webspace of left hand. Patient's tetanus status is up-to-date per her report. Patient is on anticoagulation therapy. Occurred: yesterday Quality: intermittent, aching (Mild) Severity of Pain-Max: mild Severity of Pain-Current: mild Extremities Pain Location: hand: left Modifying Factors: Improves With: movement Associated Symptoms: none Allergies/Adverse Reactions: azelastine HCl [From Astelin] Allergy (Mild, Verified 02/09/22 11:06) clarithromycin [From Biaxin] Allergy (Mild, Verified 02/09/22 11:06) valdecoxib [From Bextra] Allergy (Mild, Verified 02/09/22 11:06) moxifloxacin Allergy (Verified 02/09/22 11:06) oyster extract Allergy (Verified 02/09/22 11:06) Home Medications: Estrogens, Conjugated [Premarin] 0.625 mg PO DAILY 10/04/11 [History] Levothyroxine Sodium [Synthroid] 75 mcg PO DAILY 06/26/16 [History] Aspirin 81 mg PO HS 05/09/17 [History] Ergocalciferol (Vitamin D2) [Vitamin D] 50,000 cap PO WEEKLY 05/09/17 [History] Clopidogrel Bisulfate [PLAVIX Tablet] 75 mg PO DAILY 05/22/19 [History] Hydrocodone/Acetaminophen [Hydrocodone-Acetamin 5-325 mg] 1 each PO DAILY PRN PRN 05/22/19 [History] Pantoprazole 20 mg [Protonix 20MG Tablet] 20 mg PO HS 05/22/19 [History] Bempedoic Acid/Ezetimibe [Nexlizet 180-10 mg Tablet] 1 each PO DAILY 08/08/20 [History] Duloxetine HCl [Cymbalta] 20 mg PO DAILY 08/08/20 [History] Fluticasone Propionate [Flonase NASAL] 1 gm NS HS 08/08/20 [History] Linaclotide [Linzess] 72 mcg PO DAILY PRN PRN 08/08/20 [History] Nitroglycerin [Nitrostat] 0.4 mg SL Q5MIN PRN MR X 3 PRN 08/08/20 [History] Ubidecarenone [Co Q-10] 100 mg PO DAILY 08/08/20 [History] Vit B Cmplx #9/FA/Vit C/Vit E [Renatabs Tablet] 1 each PO DAILY PRN PRN 08/08/20 [History] Albuterol 8 gm Mdi Hfa [Ventolin Hfa MDI] 18 gm IH HS 08/09/20 [History] Hx Tetanus, Diphtheria Vaccination/Date Given: Yes Hx Influenza Vaccination/Date Given: Yes Hx Pneumococcal Vaccination/Date Given: Yes Travel Risk - International Travel Have you traveled outside of the country in past 3 weeks: No - Coronavirus Screening Are you exhibiting any of the following symptoms?: No Close contact with a COVID-19 positive Pt in past 14-21 Days: No - Vaccine Status Have you recieved a Covid-19 vaccination: Yes 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: [employer] - Vaccination Dates Date of 2cond Vaccination (if applicable): April 2020 - Review of Systems Constitutional: No Symptoms Eyes: No Symptoms Ears, Nose, & Throat: No Symptoms Respiratory: No Symptoms Cardiac: No Symptoms Abdominal/Gastrointestinal: No Symptoms Genitourinary Symptoms: No Symptoms Musculoskeletal: No Symptoms Skin: Other (Laceration left hand) Neurological: No Symptoms Psychological: No Symptoms Endocrine: No Symptoms Hematologic/Lymphatic: No Symptoms Immunological/Allergic: No Symptoms All Other Systems: Reviewed and Negative - Past Medical History Pertinent Past Medical History: Yes Neurological History: Peripheral Neuropathy ENT History: No Pertinent History, Other Cardiac History: Angina, Coronary Artery Disease, Other Respiratory History: COPD Endocrine Medical History: Hypoglycemia, Hypothyroidism Musculoskeletal History: Arthritis, Osteoarthritis GI Medical History: Gallbladder Disease, Pancreatitis History: No Pertinent History Psycho-Social History: No Pertinent History Female Reproductive Disorders: No Pertinent History Other Medical History: Hypotension - Past Surgical History Past Surgical History: Yes Neuro Surgical History: No Pertinent History Cardiac: Cardiac Catheterization Respiratory: No Pertinent History Gastrointestinal: Cholecystectomy Genitourinary: No Pertinent History Musculoskeletal: No Pertinent History Female Surgical History: Hysterectomy Other Surgical History: ERCP - Social History Smoking Status: Never smoker Exposure to second hand smoke: No Drug Use: none Patient Lives Alone: No - Nursing Vital Signs Nursing Vital Signs: Initial Vital Signs Temperature 97.2 F 02/09/22 11:05 Pulse Rate 66 02/09/22 11:05 Respiratory Rate 20 02/09/22 11:05 Blood Pressure 126/78 02/09/22 11:05 O2 Sat by Pulse Oximetry 96 02/09/22 11:05 Pain Scale Pain Intensity 0 - Physical Exam General Appearance: no apparent distress, alert, anxiety Eyes, Ears, Nose, Throat Exam: normal ENT inspection, moist mucous membranes Neck Exam: normal inspection, non-tender, supple, full range of motion Cardiovascular/Respiratory Exam: chest non-tender, no respiratory distress Abdominal Exam: non-tender Back Exam: normal inspection, normal range of motion, No CVA tenderness, No vertebral tenderness Shoulder Exam: normal inspection, non-tender, no evidence of injury, normal ROM Elbow/Forearm Exam: normal inspection, non-tender, no evidence of injury, normal ROM Wrist Exam: normal inspection, non-tender, no evidence of injury, normal ROM Hand Exam: normal ROM, laceration (Patient is neurovascularly intact. There is no evidence of tendon injury. There is a 1.5 cm superficial flap laceration with no evidence of foreign body or active bleeding.) Neuro/Tendon Exam: normal sensation, normal motor functions, normal tendon functions, no evidence tendon injury Mental Status Exam: alert, 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, cooperative Skin Exam: normal color, warm, dry, laceration SpO2 Interpretation: normal O2 Delivery: Room Air Procedures - Laceration/Wound Repair Left Dorsal Hand Time of Procedure: 11:20 Wound Location: Left, hand Wound Length (cm): 1.5 Wound's Depth, Shape: superficial, linear, flap Wound Explored: clean Irrigated: Yes Hibiclens Prep: Yes Wound Repaired With: Steri-strips, Dermabond (And benzoin) Progress: 02/09/22 11:30 Pressure dressing applied. Patient taught the procedure well - Course Nursing assessment & vital signs reviewed: Yes - Progress Progress: improved - Departure Departure Disposition: Home Clinical Impression: Laceration of left hand Condition: Stable Critical Care Time: No Referrals: DWIGHT MARTÍNEZ [Primary Care Provider] - Follow up/PCP as directed Additional Instructions: Keep the pressure dressing in place until 02/11/2022. On that morning, remove the pressure dressing and may wash the site daily thereafter. Leave the Steri-Strips in place and trim as they begin to curl up. Stop your Plavix and your fish oil until 02/11/2022.
[2022-02-09 11:06] VITALS: BP 126/78
[2022-02-09 12:25] VITALS: PULSE 70; O2SAT 97
== END 2022-02-09 11:45 | disposition home or self-care (01) ==
LOC: ED 10:55
DX: S61.412A Laceration without foreign body of left hand, initial encounter (principal); W26.0XXA Contact with knife, initial encounter; Y93.G1 Activity, food preparation and clean up; Z79.02 Long term (current) use of antithrombotics/antiplatelets; Z79.899 Other long term (current) drug therapy
CPT/HCPCS: 12001; 99281